=== PATIENT | male | born 1965 | race Caucasian/White ===

== ENCOUNTER 2018-10-05 18:04 | Emergency (ER) | payer MEDICAID, SELFPAY ==
[2018-10-05 18:04] VITALS: BP 157/82; PULSE 88; RESP 19; TEMP 37.2; O2SAT 97; BMI 30.4
--- NOTE | 2018-10-05 18:39 | RAD_ITS ---
STUDY: X-RAY - LEFT SHOULDER REASON FOR EXAM: Male, 52 years old. Pain. TECHNIQUE: 4 view(s) of the shoulder. COMPARISON: None. FINDINGS: Normal glenohumeral articulation. Normal acromioclavicular joint. Normal acromion. Normal humeral head and visualized proximal humerus. The soft tissue structures are unremarkable. There is no demonstrated fracture. Normal visualized pulmonary apex. RAD/Shoulder min 2 Views IMPRESSION: Normal x-ray examination of the shoulder. Electronically Signed: Pedro Valadez MD at 19:29 EST , Service support ,
--- NOTE | 2018-10-05 19:43 | ED.DCSUM_ITS ---
- ER Visit Summary Date of Service: 10/05/18 Chief Complaint: left shoulder pain History of Present Illness: The patient is a 52 M who presents for left shoulder pain. 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 He had no pain afterwards but woke up this morning with severe pain in his left shoulder. He has a history of shoulder injury in 1996, and has had limited range of motion and chronic pain in that shoulder since. He has not had pain this severe since the initial accident. He is taken Tylenol. No numbness or tingling in the arm. No loss of use. No other complaints. Physical Examination: Patient is well-nourished well-developed sitting in bed in no distress. Examination of the upper extremities shows symmetry of the right and left shoulders. No tenderness to palpation of the clavicle, AC joint, scapula, or coracoid process. Patient has full passive and active range of motion with some discomfort. All muscle groups and sensory dermatomes are intact distally. Radial pulse 2+. Remainder of exam unremarkable. Test Results: Clinical Impression(s) from Imaging Studies Shoulder X-Ray 10/05/18 18:39 IMPRESSION: Normal x-ray examination of the shoulder. Electronically Signed: Pedro Valadez MD at 19:29 EST , Service support , Emergency Department Course and Treatment: Patient was offered and declined pain medication. An x-ray showed no dislocation or fracture. Discussed with patient that he has aggravated his old injury, and will need to continue anti- inflammatories and might benefit from applying ice for the next couple days. He is to follow-up with his primary care doctor if he continues to have issues with the shoulder. he was offered referral to orthopedics and declined. Discharged home. Treatment Plan: [] Disposition: [] Impression: Left shoulder sprain This note was generated with [employer] dictation software. It may contain incorrect words, spelling, and punctuation that were not noted in review of the chart prior to signing ED Disposition - Plan for ED Patient: Disposition: Home or Assisted Living Chief Complaint: Upper Extremity Injury Instructions: ED Sprain Shoulder Referrals: Care Physician,No Primary [NON-STAFF] - Gulshan May [[facility]] - 1 Week if not improving Additional Instructions: Ice your shoulder 3-4 times a day for the next 2 days. Use [id number] naproxen or ibuprofen for pain. Follow-up with your doctor for reevaluation if you continue to have issues with your shoulder. If you have any worsening of your condition or any new concerning symptoms, please return immediately to the emergency department for another evaluation.
== END 2018-10-05 20:02 | disposition home or self-care (01) ==
LOC: ED 19:56
PROVIDERS: Emergency Provider Emergency Medicine; Family Provider Physician Assistant; PCP Physician Assistant
DX: S43.402A Unspecified sprain of left shoulder joint, initial encounter (principal); X58.XXXA Exposure to other specified factors, initial encounter; Y93.89 Activity, other specified; G89.29 Other chronic pain
CPT/HCPCS: 73030; 99282

== ENCOUNTER → 2020-08-05 16:55 | Outpatient (CLI) | payer MEDICAID, SELFPAY | PROVIDERS: PCP Physician Assistant | DX: U07.1 COVID-19 (principal) | CPT/HCPCS: 87635; C9803; U0003 ==

== ENCOUNTER 2021-06-15 08:49 | Emergency (ER) | payer MEDICAID, SELFPAY ==
[2021-06-15 08:50] VITALS: BP 165/100; PULSE 77; RESP 16; TEMP 36.6; O2SAT 98; BMI 39.5
--- NOTE | 2021-06-15 09:01 | EKG12_ITS ---
Test Reason : ABD PAIN Blood Pressure : / mmHG Vent. Rate : 071 BPM Atrial Rate : 071 BPM P-R Int : 128 ms QRS Dur : 094 ms QT Int : 392 ms P-R-T Axes : 000 -10 -18 degrees QTc Int : 425 ms Normal sinus rhythm Normal ECG Confirmed by DEMETRI AGARWAL, LUKE ([id number]), subeditor CHRISTINE KNAPP ([id number]) on 06/20/2021 8:16:01 AM Referred By: TAJ Confirmed By:KATERINA MOSQUERA MD
--- NOTE | 2021-06-15 09:01 | US_ITS ---
EXAM: US ABDOMEN LIMITED, RIGHT UPPER QUADRANT : 1965 CLINICAL INDICATION: PAINRUQ PAIN. KNOWN GALLSTONES TECHNIQUE: Real-time ultrasound of the right upper quadrant with image documentation. This report was created using [employer] report generation technology. COMPARISON: None. FINDINGS: LIVER: The liver measures 17 cm. There is normal echotexture. No intrahepatic biliary ductal dilation. GALLBLADDER: There are echogenic stones in the gallbladder No gallbladder wall thickening is demonstrated. No pericholecystic fluid. Negative sonographic Donaldson's sign. COMMON BILE DUCT: The common bile duct measures 2.3 mm. The proximal common bile duct is within normal limits for the patient's age. PANCREAS: Unremarkable as visualized. No focal abnormality is demonstrated in the pancreas. No pancreatic ductal dilatation. RIGHT KIDNEY: Right kidney measures 11.3 x 5.1 x 5.6 cm. The right renal cortex measures 1.4 cm. There is no hydronephrosis. No shadowing calculus. No focal lesion or perinephric collection is demonstrated. OTHER FINDINGS: The largest stone measures 2.2 x 1.5 cm. Global wall measures 2 mm. US/Gallbladder IMPRESSION: Cholelithiasis with no sonographic evidence of cholecystitis. at 1124 Reported and signed by: Brett Ott MD Electronically Signed: Brett Ott MD at 11:23 EDT Tel , Service support ,
--- NOTE | 2021-06-15 09:05 | EDS_ITS ---
HPI HPI - GI History of Present Illness Chief Complaint: Abd Pain Informant: patient Narrative Narrative: Patient sent from PCP office for evaluation of upper abdominal pain. Awakening with pain at 4 AM. He ate a cheeseburger at 8 PM last night. Reports history of gallstones back in 2014 with similar symptoms with a work-up in the ED. He did not follow-up with a surgeon. Denies nausea or vomiting. Denies any abdominal surgery history. He is on [id number] Prilosec. He took an extra dose this morning. He walked into his PCP office was seen briefly and was told to go emergency department Denies fever. Denies urinary symptoms. for imaging. Denies any past other past medical history. Denies ever having an ultrasound of his gallbladder. States findings from a CT. Prior similar symptoms: Yes PFSH PFSH Home Medications omeprazole 20 mg PO DAILY #30 capsule 04/10/17 [Rx Last Taken Unknown] Allergy/AdvReac Type Severity Reaction Status Date / Time Penicillins [PCN] Allergy Rash Verified 06/15/21 08:54 Sulfa (Sulfonamide Allergy Unknown Verified 06/15/21 08:54 Antibiotics) tetracycline [Tetracycline] Allergy Unknown Verified 06/15/21 08:54 erythromycin base AdvReac Upset Verified 06/15/21 08:54 [Erythromycin Base] Stomach Social History Smoking Status: Never smoker ROS ROS ED Constitutional Constitutional ED: Denies chills, fever(s) or sweats Eyes Eyes: Denies change in vision ENT ENT ED: Denies dysphagia or sore throat Cardiovascular Cardiovascular: Denies chest pain, leg edema, palpitations or racing heartbeat Respiratory/Chest Respiratory/Chest: Denies cough, dyspnea or dyspnea on exertion Gastrointestinal Gastrointestinal: Reports abdominal pain; Denies diarrhea, nausea or vomiting Genitourinary Genitourinary ED: Denies dysuria, hematuria or urinary frequency Musculoskeletal Musculoskeletal: Denies back pain, extremity pain or neck pain Integumentary Denies rash or wounds Neurologic Neurologic: Denies headache(s), paresthesias or weakness EXAM Physical Exam Const Vital Signs: 06/15/21 08:50 Temperature 97.8 F Temperature Source Temporal Pulse Rate 77 Respiratory Rate 16 Blood Pressure 165/100 H Blood Pressure Mean 121 Pulse Ox 98 Oxygen Delivery Method Room Air Positive well nourished and well developed General Appearance ED: well developed and NAD HEENT Reports moist mucous membranes normocephalic and atraumatic Eyes PERRL, EOMs intact bilaterally and conjunctivae normal General Eye ED: Yes normal appearance of both eyes Neck no lymphadenopathy and supple General: Negative for tenderness Chest Wall Chest: Negative for tenderness Resp normal respiratory effort and normal air movement Effort and Inspection: symmetric chest movement; Negative for respiratory distress Cardio regular rate, regular rhythm and no murmurs Peripheral Pulses: pulses 2+ throughout GI normal to inspection, nondistended, normoactive bowel sounds GI Narrative: There is tenderness epigastric mild right upper quadrant without any guarding or rebound. Negative Donaldson's or McBurney's tenderness. Palpation: Negative for guarding or rebound tenderness present Back/Spine no CVA tenderness and no thoracic nor lumbar tenderness Extremity normal to inspection General Extremety ED: Negative for edema or tenderness General Extremity: Negative for edema Neuro oriented x3 and no sensory deficits noted Sensorium / Orientation: awake and alert Skin no rashes or lesions noted and no wounds MDM MDM MDM Narrative Medical decision making narrative: Patient nonsurgical abdomen on exam. Epigastric mild right upper quadrant tenderness with reported known cholelithiasis history. Abdominal labs normal. Ultrasound notes cholelithiasis without cholecystitis. He was given Pepcid Zofran fluids with improvement of symptoms. Reported eating a cheeseburger last night. Discussed avoiding dairy products and fatty foods. History concerns for biliary colic symptoms. He is given follow-up with on-call surgery as an outpatient. Signs and symptoms discussed return. He will continue his Prilosec. All questions were answered. Lab Data Attestation: I reviewed the patient's lab results. Labs: Laboratory Results - last 24 hr 06/15/21 06/15/21 09:30 09:30 WBC 7.9 RBC 5.17 Hgb 13.8 Hct 45.0 MCV 87.0 MCH 26.7 L MCHC 30.7 L RDW Std Deviation 43.3 RDW Coeff of Viktoriya 13.7 Plt Count 227 MPV 10.3 Immature Gran % (Auto) 0.400 Neut % (Auto) 78.8 H Lymph % (Auto) 14.2 L Nuckolls % (Auto) 5.7 Eos % (Auto) 0.5 Baso % (Auto) 0.4 Absolute Neuts (auto) 6.2 Absolute Lymphs (auto) 1.12 Nucleated RBC % 0 Sodium 138 Potassium 4.0 Chloride 103 Carbon Dioxide 30.0 Anion Gap 5 BUN 17 Creatinine 0.81 Estim Creat Clear Calc 100.86 Est GFR (MDRD) Af Amer 128 Est GFR (MDRD) Non-Af 106 BUN/Creatinine Ratio 21.1 H Glucose 116 H Calcium 8.7 Total Bilirubin 0.70 Direct Bilirubin 0.16 AST 16 ALT 29 Alkaline Phosphatase 74 Total Protein 7.3 Albumin 3.7 Globulin 3.6 Lipase 128 Radiography Diagnostic Testing: Radiology Impression Gallbladder Ultrasound 06/15/21 09:01 IMPRESSION: Cholelithiasis with no sonographic evidence of cholecystitis. at 1124 Reported and signed by: Brett Ott MD Electronically Signed: Brett Ott MD at 11:23 EDT Tel , Service support , EKG Initial EKG: Attestation: I personally reviewed and interpreted this EKG as follows: Comments: Sinus rate of 71, no ST changes. T wave inversions in 3 and aVF however similar to March 2017. Discharge Plan Triage Chief Complaint: Abd Pain ED Provider: Syed Morfin Dx/Rx/DC Orders Clinical Impression: Biliary colic, Cholelithiasis Instructions: ED Gallstones with Biliary Colic Prescriptions: No Action omeprazole 20 MG capsule 20 mg PO DAILY Qty: 30 RF: 0 Primary Care Provider: Candida Moreno Referrals: Buck Lucia MD [STAFF PHYSICIAN] - 1 Week Candida Moreno PA [Primary Care Provider] - Disposition Disposition: Home, Self Care
[2021-06-15 09:40] LABS: Absolute Lymphocyte Count 1.12 X10^3/uL (0.83-4.51); Absolute Neutrophil Count 6.2 X10^3/uL (2.0-7.7); Basophil# 0.03 X10^3/uL; Basophil% 0.4 % (0-1); Eosinophil# 0.04 X10^3/uL; Eosinophils% 0.5 % (0-5); Hemoglobin 13.8 g/dL (13.0-16.5); Lymphocyte # 1.12 X10^3/ul (0.83-4.51); Lymphocyte % 14.2 % (19-41); Mean Corp Hgb Conc 30.7 g/dL (32-36); Mean Corpuscular Hgb 26.7 pg (27.0-32.0); Mean Platelet Vol. 10.3 fl (6.2-12.0); Monocyte# 0.45 X10^3/uL; Monocyte% 5.7 % (0-10); NRBC Flagged by Analyzer 0 % (0-5); Neutrophil # 6.21 X10^3/uL (2.7-7.7); Neutrophil % 78.8 % (47-70); Platelet Count 227 K/mm3 (150-450); RBC Distribution Width CV 13.7 % (11.6-14.6); RBC Distribution Width SD 43.3 fl (35.1-43.9); Red Blood Count 5.17 M/mm3 (4.6-6.2); White Blood Count 7.9 K/mm3 (4.4-11.0)
[2021-06-15] MEDS: Ondansetron 4 MG/2 ML Vial IV (09:50)
[2021-06-15] MEDS: Famotidine 200 MG/20 ML MDV 20 MG in 0.9% Normal Saline (Pres. free 8 ML 300 MG IV (09:51)
[2021-06-15] MEDS: 0.9% Normal Saline 1,000 ML 125 ML IV (09:52)
[2021-06-15 09:55] LABS: AST(SGOT) 16 U/L (15-37); Alanine Aminotransfer ALT/SGPT 29 U/L (16-61); Albumin, Serum 3.7 g/dL (3.2-5.0); Alkaline Phosphatase 74 U/L (45-117); Anion Gap 5 (5-15); BUN 17 mg/dL (7-18); BUN/Creat Ratio 21.1 RATIO (10-20); Bilirubin, Direct 0.16 mg/dL (0.00-0.30); Calcium,Total 8.7 mg/dL (8.5-10.1); Chloride 103 mmol/L (98-107); Creatinine, Serum 0.81 mg/dL (0.70-1.30); EST Glomerular Filtration Rate 106 mL/min (>60); Est Glom Filt Rate - Afr Amer 128 mL/min (>60); Estimated Creatinine Clearance 100.86 ml/min; Globulin 3.6 g/dL (2.2-4.2); Glucose 116 mg/dL (74-106); Lipase 128 U/L (73-393); Protein, Total 7.3 g/dL (6.4-8.2); Sodium Level 138 mmol/L (136-145)
[2021-06-15 11:51] VITALS: BP 129/72; PULSE 81; RESP 18; O2SAT 97
--- NOTE | 2021-06-15 11:51 | ED.RN ---
THIS NURSE REVIEWED D/C INSTRUCTIONS WITH PT. PT VERBALIZED UNDERSTANDING OF INSTRUCTIONS. IV D/C. IV CATHETER INTACT. PT TOLERATED WELL. PT DENIES FURTHER NEEDS OR QUESTIONS AT THIS TIME
== END 2021-06-15 11:53 | disposition home or self-care (01) ==
PROVIDERS: Emergency Provider Emergency Medicine; PCP Physician Assistant
DX: K80.70 Calculus of gallbladder and bile duct without cholecystitis without obstruction (principal); Z79.899 Other long term (current) drug therapy
CPT/HCPCS: 76705; 80048; 80076; 83690; 85025; 93005; 96374; 99283; J7030; A4216; J2405; J3490

== ENCOUNTER 2022-01-29 03:56 | Emergency (ER) | payer MEDICAID, SELFPAY ==
[2022-01-29] VITALS (8 sets, daily range): BP systolic 131–196; BP diastolic 83–111; PULSE 72–94; RESP 12–16; TEMP 36.4; O2SAT 94–99; BMI 36.5
--- NOTE | 2022-01-29 04:10 | EKG12_ITS ---
Test Reason : CP Blood Pressure : / mmHG Vent. Rate : 080 BPM Atrial Rate : 080 BPM P-R Int : 158 ms QRS Dur : 098 ms QT Int : 392 ms P-R-T Axes : 025 -13 -24 degrees QTc Int : 452 ms Normal sinus rhythm Poor R wave progression Confirmed by LAUREN AGARWAL, WILLIAM ([id number]), newspaper editor CHRISTINE KNAPP ([id number]) on 01/31/2022 8:59:56 AM Referred By: ZEINAB Confirmed By:WILLIAM AGUILAR MD
--- NOTE | 2022-01-29 04:10 | RAD_ITS ---
EXAM: XR CHEST, 1 VIEW CLINICAL INDICATION: chest pain TECHNIQUE: Frontal view of the chest. This report was created using [employer] report generation technology. COMPARISON: 08/04/2016. FINDINGS: LUNGS AND PLEURAL SPACES: Low lung volumes somewhat limit the exam. No consolidations. No pneumothorax. No effusion. HEART: Unremarkable. Cardiac silhouette not enlarged. MEDIASTINUM: Central airways and mediastinal contour are unremarkable. BONES/JOINTS: Unremarkable. SOFT TISSUES: Unremarkable. RAD/Chest 1 View (Portable) IMPRESSION: No acute findings in the chest. Electronically Signed: Buck Nguyen MD at 4:47 EDT ,
--- NOTE | 2022-01-29 04:11 | ED.VIS.CHEST ---
HPI History of Present Illness Chief Complaint: Chest Pain Informant: patient Onset/Context/Timing Onset: Hours (2) Activity at onset: sudden and sleep Timing: Continuous Quality: Positive for Aching Location: Left Chest (Without radiation or migration) Current Severity: Mild Maximum Severity: Moderate Worsened By: - (Each time he would lie down) Relieved By: - (Sitting up) Associated Symptoms: Negative for Nausea, Vomiting, Diaphoresis, Dyspnea, Cough, Lightheadedness, Acid Reflux (I have had acid reflux before and this feels different) and Palpitations Narrative Narrative: Patient woke up with chest discomfort that is worse when he lies down and better when he sits up. Nonpleuritic, nonexertional. Has been constant for the last couple hours since he woke up with it. No associated symptoms. Takes medication for blood pressure, has been compliant with it, usually takes it in the morning for breakfast which is in several hours from now. No known history of heart disease, has not had a stress test in the past. CVD Risk Factors: Positive for Hypertension, Hypercholesterolemia and Smoking (Former); Negative for Diabetes and Family History 1' </=55 (adopted, unk fam hx) PE Risk Factors: Negative for Recent Travel/Surgery, Recent Immobilization, Prior DVT or PE, Cancer and OCP + Smoking + >/=35 PFSH PFSH Medical History HTN (hypertension) Hyperlipemia Inguinal hernia Home Medications omeprazole 20 mg PO DAILY #30 capsule 04/10/17 [Rx Last Taken Unknown] losartan 25 mg PO DAILY 01/29/22 [History Last Taken Unknown] meloxicam 15 mg PO DAILY 01/29/22 [History Last Taken Unknown] rosuvastatin 5 mg PO QHS 01/29/22 [History Last Taken Unknown] Allergy/AdvReac Type Severity Reaction Status Date / Time Penicillins [PCN] Allergy Rash Verified 01/29/22 03:59 Sulfa (Sulfonamide Allergy Unknown Verified 01/29/22 03:59 Antibiotics) tetracycline [Tetracycline] Allergy Unknown Verified 01/29/22 03:59 erythromycin base AdvReac Upset Verified 01/29/22 03:59 [Erythromycin Base] Stomach Surgical History Hx of cholecystectomy Social History Smoking Status: Never smoker ROS ROS ED Constitutional Constitutional ED: Denies chills or fever(s) Eyes Eyes: Denies change in vision or diplopia ENT ENT ED: Denies rhinorrhea or sore throat Cardiovascular Cardiovascular: Reports chest pain; Denies palpitations Respiratory/Chest Respiratory/Chest: Denies cough or dyspnea Gastrointestinal Gastrointestinal: Denies abdominal pain, diarrhea, nausea or vomiting Genitourinary Genitourinary ED: Denies dysuria or hematuria Musculoskeletal Musculoskeletal: Denies back pain or neck pain Integumentary Denies abscess or rash Neurologic Neurologic: Denies headache(s), paresthesias or weakness Psychiatric Psychiatric: Denies anxiety or suicidal thoughts EXAM Physical Exam Const Vital Signs: 01/29/22 03:57 01/29/22 04:03 01/29/22 04:22 Temperature 97.5 F L Temperature Source Oral Pulse Rate 80 90 Respiratory Rate 14 Respiratory Effort Normal Non-Labored Blood Pressure 169/111 H 196/94 H Blood Pressure Mean 130 Pulse Ox 99 Oxygen Delivery Method Room Air 01/29/22 04:29 01/29/22 04:30 01/29/22 04:53 Temperature Temperature Source Pulse Rate 94 78 Respiratory Rate 16 Respiratory Effort Blood Pressure 146/96 H 156/91 H Blood Pressure Mean 112 Pulse Ox 94 Oxygen Delivery Method Room Air Room Air 01/29/22 05:02 01/29/22 05:57 01/29/22 06:15 Temperature Temperature Source Pulse Rate 87 72 80 Respiratory Rate 14 12 Respiratory Effort Blood Pressure 148/89 H 141/83 H 131/88 H Blood Pressure Mean 108 102 Pulse Ox 96 97 Oxygen Delivery Method Room Air Room Air Positive well nourished and well developed General Appearance ED: well developed and NAD HEENT Reports moist mucous membranes normocephalic and atraumatic Eyes PERRL and EOMs intact bilaterally Neck full ROM and supple Chest Wall inspection of chest normal Chest Narrative: Mildly tender left chest wall without crepitance or palpable mass. Normal inspection. Resp normal respiratory effort and clear to auscultation bilaterally Cardio regular rate, regular rhythm, no murmurs and no JVD Rate: Negative for tachycardic GI non-tender and non-distended Auscultation: normoactive bowel sounds Palpation: soft Back/Spine no CVA tenderness General Back: other FROM Extremity normal to inspection General Extremety ED: Negative for edema, pulses abnormal or tenderness General Extremity: Negative for edema or pulses abnormal Neuro oriented x3, CN's II-XII intact bilaterally and no sensory deficits noted Sensorium / Orientation: awake and alert Motor Exam: strength 5/5 throughout Skin no rashes or lesions noted and no wounds Heart Score History: Moderately Suspicious ECG: Normal Age: >45 - <65 years Risk Factors: >/= 3 Risk Factors or History of CAD Troponin: </= Normal Limit Score: 4 MDM MDM MDM Narrative Medical decision making narrative: Patient's pain completely resolved after aspirin and nitroglycerin x2. EKG and troponin, chest x-ray, basic labs normal. Heart score is 3-4, depending on how you score the history component. We discussed options including admitting him to the hospital for provocative testing/stress test, versus a second 2-hour troponin and discharge home if negative with close have patient follow-up. He opted for outpatient follow-up, and he was amenable to waiting for a 2-hour second measurement. He came back negative, a little lower than the initial 1. Patient is discharged home with appropriate instructions and return instructions. Lab Data Attestation: I reviewed the patient's lab results. Labs: Laboratory Results - last 24 hr 01/29/22 01/29/22 01/29/22 04:00 04:00 04:00 WBC 7.9 RBC 5.41 Hgb 14.3 Hct 46.7 MCV 86.3 MCH 26.4 L MCHC 30.6 L RDW Std Deviation 41.2 RDW Coeff of Viktoriya 13.2 Plt Count 245 MPV 10.4 Immature Gran % (Auto) 0.300 Neut % (Auto) 54.9 Lymph % (Auto) 33.8 [place] % (Auto) 9.2 Eos % (Auto) 1.5 Baso % (Auto) 0.3 Absolute Neuts (auto) 4.3 Absolute Lymphs (auto) 2.67 Nucleated RBC % 0 Sodium 138 Potassium 3.3 L Chloride 101 Carbon Dioxide 31.0 Anion Gap 6 BUN 18 Creatinine 0.88 Estim Creat Clear Calc 91.76 Est GFR (MDRD) Af Amer 116 Est GFR (MDRD) Non-Af 96 BUN/Creatinine Ratio 20.6 H Glucose 103 Calcium 8.9 Troponin I High Sens 6 01/29/22 06:00 WBC RBC Hgb Hct MCV MCH MCHC RDW Std Deviation RDW Coeff of Viktoriya Plt Count MPV Immature Gran % (Auto) Neut % (Auto) Lymph % (Auto) [place] % (Auto) Eos % (Auto) Baso % (Auto) Absolute Neuts (auto) Absolute Lymphs (auto) Nucleated RBC % Sodium Potassium Chloride Carbon Dioxide Anion Gap BUN Creatinine Estim Creat Clear Calc Est GFR (MDRD) Af Amer Est GFR (MDRD) Non-Af BUN/Creatinine Ratio Glucose Calcium Troponin I High Sens 5 Radiography Diagnostic Testing: Clinical Impression(s) from Imaging Studies Chest X-Ray 01/29/22 04:10 IMPRESSION: No acute findings in the chest. Electronically Signed: Buck Nguyen MD at 4:47 EDT , EKG Initial EKG: Attestation: I personally reviewed and interpreted this EKG as follows: Interpretation: Sinus Rhythm (80) and No Acute Injury Pattern Comments: Normal EKG Prior EKG tracings: available for review Prior: Unchanged Discharge Plan Triage Chief Complaint: Chest Pain ED Provider: Shashi Moya Dx/Rx/DC Orders Clinical Impression: Chest pain, unspecified, Accelerated hypertension Instructions: Symptoms of a Heart Attack, ED Chest Pain, Uncertain Cause Prescriptions: No Action omeprazole 20 MG capsule 20 mg PO DAILY Qty: 30 RF: 0 meloxicam 15 mg tablet 15 mg PO DAILY RF: 0 losartan 25 mg tablet 25 mg PO DAILY RF: 0 rosuvastatin 5 mg tablet 5 mg PO QHS RF: 0 Primary Care Provider: Candida Moreno Referrals: Candida Moreno, PA [Primary Care Provider] - As soon as possible Activity Restrictions/Additional Instructions: Take baby aspirin once daily (81 mg) until you see your primary care physician and/or are told otherwise.
[2022-01-29] MEDS: Aspirin 81 MG TAB.CHEW 324 MG PO (04:21)
[2022-01-29] MEDS: Nitroglycerin SL (ED/IMG/CATH) 0.4 MG TABLET SL ×2 (04:22→04:53)
[2022-01-29] MEDS: 0.9% Normal Saline 1,000 ML 250 ML IV (04:22)
[2022-01-29 04:25] LABS: Absolute Lymphocyte Count 2.67 X10^3/uL (0.83-4.51); Absolute Neutrophil Count 4.3 X10^3/uL (2.0-7.7); Basophil# 0.02 X10^3/uL; Basophil% 0.3 % (0-1); Eosinophil# 0.12 X10^3/uL; Eosinophils% 1.5 % (0-5); Hematocrit 46.7 % (40-54); Hemoglobin 14.3 g/dL (13.0-16.5); Lymphocyte # 2.67 X10^3/ul (0.83-4.51); Lymphocyte % 33.8 % (19-41); Mean Corp Hgb Conc 30.6 g/dL (32-36); Mean Corpuscular Hgb 26.4 pg (27.0-32.0); Mean Corpuscular Volume 86.3 fL (80-94); Mean Platelet Vol. 10.4 fl (6.2-12.0); Monocyte# 0.73 X10^3/uL; Monocyte% 9.2 % (0-10); NRBC Flagged by Analyzer 0 % (0-5); Neutrophil # 4.34 X10^3/uL (2.7-7.7); Neutrophil % 54.9 % (47-70); Platelet Count 245 K/mm3 (150-450); RBC Distribution Width CV 13.2 % (11.6-14.6); RBC Distribution Width SD 41.2 fl (35.1-43.9); Red Blood Count 5.41 M/mm3 (4.6-6.2); White Blood Count 7.9 K/mm3 (4.4-11.0)
[2022-01-29 04:50] LABS: Anion Gap 6 (5-15); BUN 18 mg/dL (7-18); BUN/Creat Ratio 20.6 RATIO (10-20); Calcium,Total 8.9 mg/dL (8.5-10.1); Chloride 101 mmol/L (98-107); Creatinine, Serum 0.88 mg/dL (0.70-1.30); EST Glomerular Filtration Rate 96 mL/min (>60); Est Glom Filt Rate - Afr Amer 116 mL/min (>60); Estimated Creatinine Clearance 91.76 ml/min; Glucose 103 mg/dL (74-106); Potassium 3.3 mmol/L (3.5-5.1); Sodium Level 138 mmol/L (136-145)
[2022-01-29 05:11] LABS: Troponin-I HS (w/2H Reflex) 6 pg/mL (3.0-78.0)
[2022-01-29] MEDS: Nitroglycerin Oint 1 INCH PACKET TD (05:57)
--- NOTE | 2022-01-29 06:31 | ED.RN ---
Per Dr. Moya, okay to discontinue nitro paste. Nitro paste taken off pt's left arm, residual paste taken off.
[2022-01-29 06:34] LABS: Reflex Troponin-HS? (from REC) Y
[2022-01-29 06:54] LABS: Troponin-I HS 5 pg/mL (3.0-78.0)
== END 2022-01-29 07:08 | disposition home or self-care (01) ==
LOC: ED 04:32
PROVIDERS: Emergency Provider Emergency Medicine; PCP Physician Assistant; Visit Provider Emergency Medicine
DX: R07.9 Chest pain, unspecified (principal); I10 Essential (primary) hypertension; E78.5 Hyperlipidemia, unspecified; Z79.899 Other long term (current) drug therapy
CPT/HCPCS: 71045; 80048; 84484; 85025; 93005; 99285; A4216

== ENCOUNTER → 2022-05-23 | Outpatient (CLI) | payer MEDICAID, SELFPAY ==
--- NOTE | 2022-05-23 14:41 | NEURO ---
NCS and/or EMG Patient Report Ordering Doctor: Candida Moreno DATE OF SERVICE: 05/23/22 Deon presents for electrodiagnostic testing. Complains of numbness in the 4th and 5th digits of the left hand. Electrodiagnostic Findings: Left median motor nerve demonstrated normal distal latency and amplitude. Following stimulation of this nerve, the patient reported that he was unable to tolerate the testing and refused to proceed any further. Electrodiagnostic impression: This is a limited and incomplete study. The left median motor nerve demonstrates normal distal latency and amplitude but no other information was obtained. No assessment regarding the patient's condition can be made.
== END | disposition home or self-care (01) ==
LOC: PSN 13:26
PROVIDERS: PCP Physician Assistant; Referring Provider Physician Assistant; Visit Provider Physician Assistant
DX: M48.02 Spinal stenosis, cervical region (principal); M50.30 Other cervical disc degeneration, unspecified cervical region; R20.0 Anesthesia of skin

== ENCOUNTER 2023-03-26 10:23 | Emergency (ER) | payer MEDICAID, SELFPAY ==
[2023-03-26 10:24] VITALS: BP 171/102; PULSE 119; RESP 17; TEMP 36.6; O2SAT 100
[2023-03-26 10:33] VITALS: BMI 37.6
--- NOTE | 2023-03-26 10:34 | ED.VIS.LOWEX ---
HPI History of Present Illness Chief Complaint: Lower Extremity Injury Narrative Narrative: 57-year-old male presents with pain in his left hip from an injury that he sustained yesterday. He states he was in the shower, went to wash his left lower extremity, and bend his hip. He had sharp pain in his left hip and states he felt a pop. He is unsure if it was out of place but felt it might have popped back into place. He now has pain that is worse with movement. He does have history of chronic back pain, but denies any loss of bowel or bladder, no saddle anesthesia, no recent fevers or chills. His pain has continued where he was unable to sleep on his left side or his left hip. He did not fall onto his left hip at all and states that secondary to pain he had a leaned up against the shower wall with his left shoulder. He was able to drive here to the emergency department. He complains of pain in his left hip that is worse with movement. [facility] Medical History HTN (hypertension) Hyperlipemia Inguinal hernia Home Medications omeprazole 20 mg capsule,delayed release 20 mg PO DAILY ##30 04/10/17 [Rx Last Taken Unknown] losartan 25 mg tablet 25 mg PO DAILY 01/29/22 [History Last Taken Unknown] meloxicam 15 mg tablet 15 mg PO DAILY 01/29/22 [History Last Taken Unknown] rosuvastatin 5 mg tablet 5 mg PO QHS 01/29/22 [History Last Taken Unknown] cyclobenzaprine 10 mg tablet 10 mg PO TID PRN Muscle Spasm #20 TABLETS 03/26/23 [Rx Last Taken Unknown] Allergy/AdvReac Type Severity Reaction Status Date / Time Penicillins [PCN] Allergy Rash Verified 03/26/23 10:26 Sulfa (Sulfonamide Allergy Unknown Verified 03/26/23 10:26 Antibiotics) tetracycline [Tetracycline] Allergy Unknown Verified 03/26/23 10:26 erythromycin base AdvReac Upset Verified 03/26/23 10:26 [Erythromycin Base] Stomach Surgical History Hx of cholecystectomy Social History Smoking Status: Never smoker ROS ROS ED ROS Narrative Constitutional: No fever, no chills. HEENT: No sore throat. No neck pain. No loss of vision. No rhinorrhea. Cardiovascular: No chest pain. No palpitations. No pedal edema. Respiratory: No cough, no shortness of breath. Abdominal: No abdominal pain. No nausea. No vomiting. Genitourinary: No dysuria. No hematuria. Musculoskeletal: No myalgias. Left hip pain worse with movement. Neurologic: No headaches. No dizziness. No lightheadedness. No loss of bowel or bladder. Skin: No rash. No change in color. Psychiatric: No depression. No anxiety. EXAM Physical Exam Narrative Exam Narrative: Afebrile. Vital signs noted. HEENT: Normocephalic. Atraumatic. PERRL, EOMI. Neck soft and supple. No point tenderness or step off. Cardiovascular: Regular rate and rhythm. No murmurs, rubs, or gallops appreciated. Respiratory: No tachypnea. Lungs clear to auscultation bilaterally. Gastrointestinal: Abdomen soft, nontender, with normoactive bowel sounds. No rebound or guarding. Neurological: Awake. Alert. Nonfocal, nonlateralizing. Skin: No rash. Normal color. No pallor. Musculoskeletal: No pedal edema. Full range of motion extremities. Pelvis stable. Mild tenderness to palpation over left greater trochanter area. Neurovascular intact distally with palpable dorsalis pedis pulse. Able to flex and extend hip and knee, left. Const Vital Signs: 03/26/23 10:24 Temperature 97.8 F Temperature Source Temporal Pulse Rate 119 H Respiratory Rate 17 Blood Pressure 171/102 H Blood Pressure Mean 125 Pulse Ox 100 Oxygen Delivery Method Room Air MDM MDM MDM Narrative Medical decision making narrative: Patient was given intramuscular injection of Toradol here for analgesia. I am hesitant to give him a muscle relaxer as he drove here. In the differential diagnosis is hip dislocation versus fracture versus ligamentous and muscular strain/sprain. Clinically, there is no evidence of dislocation, and I have low suspicion for fracture, however x-rays will be obtained of the left hip and pelvis and 3 views and interpreted by myself independently. On my independent interpretation, I see no evidence of acute fracture or dislocation of his left hip, no fracture of the pelvis. At this point in time, I feel he can be discharged safely home with a diagnosis of hip strain/hip sprain. I discussed with him prescription analgesics, but I do not feel narcotic pain medication is indicated. He states that he prefers to take Tylenol. I will write him for cyclobenzaprine which she has taken previously. He will follow-up with his primary care provider. I do not feel that he requires observation or admission. Return instructions to the emergency department were reviewed. Disposition is discharged home in stable condition. Radiography Diagnostic Testing: Clinical Impression(s) from Imaging Studies Hip/Pelvis X-Ray 03/26/23 10:50 IMPRESSION: Normal x-ray examination of the pelvis and hip. Electronically Signed: Stalin Winston MD at 11:14 EDT , Discharge Plan Triage Chief Complaint: Lower Extremity Injury ED Provider: Ash Carrizales Dx/Rx/DC Orders Clinical Impression: Sprain of left hip, Strain of left hip Instructions: ED Hip Strain Prescriptions: New cyclobenzaprine 10 mg tablet 10 mg PO TID PRN (Reason: Muscle Spasm) Qty: 20 0RF No Action omeprazole 20 MG capsule 20 mg PO DAILY Qty: 30 0RF meloxicam 15 mg tablet 15 mg PO DAILY losartan 25 mg tablet 25 mg PO DAILY rosuvastatin 5 mg tablet 5 mg PO QHS Primary Care Provider: Candida Moreno Referrals: Candida Moreno PA [Primary Care Provider] - 3-5 Days if not improving Disposition Disposition: Home, Self Care
--- NOTE | 2023-03-26 10:50 | RAD_ITS ---
STUDY: X-RAY - PELVIS AND LEFT HIP REASON FOR EXAM: Male, 57 years old. Left hip pain following a fall. TECHNIQUE: 3 views of the pelvis and hip. COMPARISON: None. FINDINGS: There is a non-specific bowel gas pattern. Normal visualized soft tissue structures. Normal bilateral iliac wings, sacroiliac joints and visualized sacrum. Normal bilateral superior and inferior pubic rami. Normal pubic symphysis. Normal bilateral ischial tuberosities. Normal visualized femoral head. Normal acetabulum. Normal hip joint. RAD/HIP, UNI W/ Pelvis 2-3 Views IMPRESSION: Normal x-ray examination of the pelvis and hip. Electronically Signed: Stalin Winston MD at 11:14 EDT ,
[2023-03-26] MEDS: Ketorolac 60 MG/2 ML Vial IM (11:04)
== END 2023-03-26 11:45 | disposition home or self-care (01) ==
PROVIDERS: Emergency Provider Emergency Medicine; PCP Physician Assistant; Visit Provider Emergency Medicine
DX: S73.102A Unspecified sprain of left hip, initial encounter (principal); S76.012A Strain of muscle, fascia and tendon of left hip, initial encounter; X58.XXXA Exposure to other specified factors, initial encounter; Y93.E1 Activity, personal bathing and showering; Y99.8 Other external cause status; I10 Essential (primary) hypertension; Z79.899 Other long term (current) drug therapy
CPT/HCPCS: 73502; 96372; 99282

== ENCOUNTER 2023-12-28 15:02 | Emergency (ER) | payer MEDICAID, SELFPAY ==
[2023-12-28 15:03] VITALS: BP 167/101; PULSE 116; RESP 18; TEMP 36.1; O2SAT 96; BMI 36.0
--- NOTE | 2023-12-28 15:16 | EX.ED.DYSGE1 ---
HPI <MARCUS Pettit - Last Filed: 12/28/23 15:52> History of Present Illness Chief Complaint: GI Bleed Narrative Narrative: 58-year-old male strained and had a hard bowel movement with rectal pain and noticed a small amount of dark red blood on the stool and then dark red blood on the toilet paper after wiping. This occurred twice this afternoon. He states his bowel movements are always hard and sometimes thin. He goes twice daily. He denies fever, chills, vomiting, or abdominal pain. Last colonoscopy was multiple years ago. He states he was due to have 1 last year but his father and it was delayed. PFSH <MARCUS Pettit - Last Filed: 12/28/23 15:52> PFSH Medical History HTN (hypertension) Hyperlipemia Inguinal hernia Home Medications omeprazole 20 mg capsule,delayed release 20 mg PO DAILY ##30 04/10/17 [Rx Last Taken Unknown] meloxicam 15 mg tablet 15 mg PO DAILY 01/29/22 [History Last Taken Unknown] rosuvastatin 5 mg tablet 5 mg PO QHS 01/29/22 [History Last Taken Unknown] cyclobenzaprine 10 mg tablet 10 mg PO TID PRN Muscle Spasm #20 TABLETS 03/26/23 [Rx Last Taken Unknown] fluticasone propionate 50 mcg/actuation nasal spray,suspension 2 spray intranasal DAILY 12/28/23 [History Last Taken Unknown] losartan 100 mg-hydrochlorothiazide 12.5 mg tablet 1 tab PO DAILY 12/28/23 [History Last Taken Unknown] Allergy/AdvReac Type Severity Reaction Status Date / Time Penicillins [PCN] Allergy Rash Verified 12/28/23 15:03 Sulfa (Sulfonamide Allergy Unknown Verified 12/28/23 15:03 Antibiotics) tetracycline [Tetracycline] Allergy Unknown Verified 12/28/23 15:03 erythromycin base AdvReac Upset Verified 12/28/23 15:03 [Erythromycin Base] Stomach Surgical History Hx of cholecystectomy Social History Smoking Status: Never smoker ROS <MARCUS Pettit - Last Filed: 12/28/23 15:52> ROS ED ROS Narrative Constitutional: Negative for fever, chills, malaise. GI: Positive for constipation. Negative for abdominal pain, nausea, vomiting, melena. EXAM <MARCUS Pettit - Last Filed: 12/28/23 15:52> Physical Exam Narrative Exam Narrative: CONST: Patient sitting in no acute distress. EYES: Normal inspection. NECK: Normal inspection. RESP: No respiratory distress, CTAB. CVS: Regular rate and rhythm, no murmur, no gallop. ABD: Soft and nontender, no guarding or rebound, nondistended. LOYD: Nonthrombosed external hemorrhoid bright red blood on skin but no active bleeding. Anoscope reveals rectal stricture and tenderness. SKIN: Color normal, no rash, warm, dry, intact. EXTREMITIES: Normal appearance, no pedal edema. NEURO: Oriented x4. PSYCH: Normal affect. Const Vital Signs: 12/28/23 15:03 Temperature 96.9 F L Temperature Source Temporal Pulse Rate 116 H Respiratory Rate 18 Blood Pressure 167/101 H Blood Pressure Mean 123 Pulse Ox 96 <Dr. Dominik Avila MD - Last Filed: 12/28/23 16:06> Physical Exam Const Vital Signs: 12/28/23 15:03 Temperature 96.9 F L Temperature Source Temporal Pulse Rate 116 H Respiratory Rate 18 Blood Pressure 167/101 H Blood Pressure Mean 123 Pulse Ox 96 [facility] <MARCUS Pettit - Last Filed: 12/28/23 15:52> [facility] Narrative Medical decision making narrative: Patient has 2 daily bowel movements but is chronically constipated and has to strain. After straining to have a BM today had rectal pain and dark red bleeding. Exam shows an external hemorrhoid. Anoscope there is narrowing of the rectum. There is no active bleeding and is not on anticoagulation. I recommended he follow-up for his colonoscopy. He states his care source mobile home park manager is due to visit him on Saturday and he can discuss arranging this. He has a GI doctor but does not recall the name. I recommended Metamucil and discussed return precautions and he was discharged in stable condition. <Dr. Dominik Avila MD - Last Filed: 12/28/23 16:06> [facility] Narrative Medical decision making narrative: Patient has 2 daily bowel movements but is chronically constipated and has to strain. After straining to have a BM today had rectal pain and dark red bleeding. Exam shows an external hemorrhoid. Anoscope there is narrowing of the rectum. There is no active bleeding and is not on anticoagulation. I recommended he follow-up for his colonoscopy. He states his care source mobile home park manager is due to visit him on Saturday and he can discuss arranging this. He has a GI doctor but does not recall the name. I recommended Metamucil and discussed return precautions and he was discharged in stable condition. I have personally performed a face to face assessment of the patient and have reviewed the DEVIN Note. I performed a substantive portion of the visit including all aspects of the following. My ocampo findings include: History is remarkable for pain with defecation. He noted blood this morning. Is concerned. He apparently had an abnormal Hemoccult test a year ago. Recommendation was colonoscopy. He did not undergo colonoscopy because father's . He does endorse thin pencillike stools. He has trouble moving his bowels. He states he does have to strain. Last year he reported significant mount of diarrhea. He no longer has problems with diarrhea. He denies weight loss. There is no history of Crohn's disease or ulcerative colitis. Exam is is remarkable for heavyset gentleman. He is slightly anxious. Rectal exam reveals blood near the anus. There is no fissures, fistulas or hemorrhoids that are visualized. Rectal exam was limited due to a stricture. He had significant mount of pain. Attempted anoscopy reveals abnormality of the anal mucosa. There is an external hemorrhoid noted at 5:00. Exam was limited because of discomfort and what I believed to be a stricture. Medical Decision Making patient was instructed to contact his primary care physician to make arrangements for colonoscopy in light of the narrowing of pain noted on digital exam and anoscopy. Other additions or changes: Anoscopy: Procedure note anoscopy was performed. Was limited due to the fact the patient has stricture. There is abnormality of the rectal mucosa. Patient does have a external hemorrhoid noted at 5:00. There is no active bleeding at this time. Procedures <Dr. Dominik Avila MD - Last Filed: 12/28/23 16:06> Other Procedures Procedure(s): Anoscopy. Note documented under the MDM portion by me. Discharge Plan Triage Chief Complaint: GI Bleed ED Midlevel Provider: Luciana Robertson ED Provider: Dominik Avila Dx/Rx/DC Orders Clinical Impression: Bleeding external hemorrhoids, Rectal abnormality, Constipation Instructions: ED Hemorrhoids Prescriptions: No Action omeprazole 20 MG capsule 20 mg PO DAILY Qty: 30 0RF meloxicam 15 mg tablet 15 mg PO DAILY rosuvastatin 5 mg tablet 5 mg PO QHS cyclobenzaprine 10 mg tablet 10 mg PO TID PRN (Reason: Muscle Spasm) Qty: 20 0RF fluticasone propionate 50 mcg/actuation spray,suspension 2 spray INTRANASAL DAILY losartan-hydrochlorothiazide 100-12.5 mg tablet 1 tab PO DAILY Primary Care Provider: Candida Moreno Referrals: Candida Moreno, PA [Primary Care Provider] - Activity Restrictions/Additional Instructions: Take Metamucil every day to soften your stools. It is very important you follow-up with your primary care doctor to schedule colonoscopy. There is narrowing inside your rectum. They need to look with the scope and take biopsies and rule out cancer. Disposition Disposition: Home, Self Care Discharge Date/Time: 12/28/23 15:34
--- OUTSIDE RECORDS SUMMARY | 2023-12-28 15:35 | XMS RPT_ITS | CCD ---
Author Name Unknown Address [address] [place] [address] Organization [facility] Care Team Providers Care Cw Operator Name Role Phone Candida Moreno PA-C Primary Care Provider [phone] JANAY SANFORD Referring Unavailable MORENO, Candida ASH Primary Care Unavailable JANAY SANFORD Referring Unavailable MORENO, Candida ASH Primary Care Unavailable JANAY SANFORD Referring Unavailable MORENO, M ASH Primary Care Unavailable JANAY SANFORD Referring Unavailable MORENO, M ASH Primary Care Unavailable JANAY SANFORD Referring Unavailable MORENO, M ASH Primary Care Unavailable JANAY SANFORD Referring Unavailable MORENO, M ASH Primary Care Unavailable JANAY SANFORD Attending Unavailable MORENO, M ASH Referring Unavailable MORENO, M ASH Primary Care Unavailable GUI MARTINEZ Attending Unavailab le JANAY SANFORD Referring Unavailable MORENO, M ASH Primary Care Unavailable CHASTITY SCOTT Attending Unavailable JANAY SANFORD Referring Unavailable MORENO, M ASH Primary Care Unavailable JANAY SANFORD Attending Unavailable MORENO, M ASH Primary Care Unavailable JANAY SANFORD Attending Unavailable MORENO, M ASH Primary Care Unavailable ROLANDAAGENJANAY Referring Unavailable MORENO, M ASH Primary Care Unavailable Moreno Candida WHITE Primary Care Provider [phone] Allergies Allergy Classification Reported Allergen(s) Allergy Type Date of Onset Reaction(s) Facility (20 sources) Erythromycin; Translations: [ERYTHROMYCIN] Drug Allergy 6 Diarrhea, GI Upset [facility] (20 sources) Lisinopril; Translations: [LISINOPRIL] Drug Allergy 1 Other: See Comments [facility] Work Phone: (10 sources) Penicillins; Translations: [PENICILLINS] Drug Allergy 6 Rash [facility] (20 sources) Sulfonamides (Antibiotic); Translations: [SULFA (SULFONAMIDE ANTIBIOTICS)] Propensity to adverse reactions to drug 6 Unknown [facility] (10 sources) Tetracycline (class of antibiotic); Translations: [TETRACYCLINES] Drug Allergy 6 Other: See Comments [facility] (20 sources) Penicillins Drug Allergy 6 Rash [facility] (20 sources) Tetracycline (class of antibiotic) Drug Allergy 6 Other: See Comments [facility] Medications Current Medications Medication Drug Class(es) Dates Sig (Normalized) Sig (Original) predniSONE 10 mg oral tablet (1 source) Start: 03-20-2023 End: 04-01-2023 predniSONE (DELTASONE) 10 mg tablet Take 4 tabs daily x 3 days, then 3 tabs x 3 days, 2 tabs x 3 days, then 1 tab x3 days with food. 30 tablet 0 03/20/2023 04/01/2023 Active Completed/Discontinued Medications Medication Drug Class(es) Dates Sig (Normalized) Sig (Original) [id number] 200 actuat albuterol 0.09 mg/actuat metered dose inhaler (20 sources) beta2-Adrenergic Agonist Start: 11-20-2021 take 2 puff(s) by inhalation every four hours as needed albuterol HFA (PROVENTIL HFA, VENTOLIN HFA) 90 mcg/actuation inhaler Indications: Mild intermittent asthma with acute exacerbation Inhale 2 Puffs as instructed every 4 hours as needed. 18 g 1 11/20/2021 Active Problems Active Problems Problem Classification Problem Date Documented Da te Episodic/Chronic Asthma (20 sources) Mild intermittent asthma; Translations: [Mild intermittent asthma, uncomplicated] Onset: 6 01-14-2017 Chronic Disorders of lipid metabolism (8 sources) Mixed hyperlipidemia; Translations: [Mixed hyperlipidemia] Onset: 3 Chronic Esophageal disorders (20 sources) Gastroesophageal reflux disease; Translations: [Gastro-esophageal reflux disease without esophagitis] Onset: 1 Chronic Essential hypertension (20 sources) Essential hypertension; Translations: [Essential (primary) hypertension] Onset: 1 Chronic Nonspecific chest pain (2 sources) Chest pain; Translations: [Other chest pain] Episodic Other connective tissue disease (2 sources) Hand pain; Translations: [Pain in unspecified hand] Episodic Other connective tissue disease (1 source) Pain in unspecified hand; Translations: [Pain of hand, unspecified laterality] Onset: 3 Episodic Other gastrointestinal disorders (2 sources) Occult blood in stools; Translations: [Other fecal abnormalities] 06-10-2023 Episodic Other gastrointestinal disorders (1 source) Other fecal abnormalities; Translations: [Fecal occult blood test positive] Onset: 3 Episodic Other injuries and conditions due to external causes (2 sources) Allergic condition; Translations: [Allergy, unspecified, sequela] Episodic Other nervous system disorders (1 source) Ulnar neuropathy of left arm; Translations: [Lesion of ulnar nerve, left upper limb] 06-20-2023 Chronic Other nervous system disorders (1 source) Carpal tunnel syndrome of left wrist; Translations: [Carpal tunnel syndrome, left upper limb] 06-20-2023 Chronic Other nervous system disorders (1 source) Other chronic pain; Translations: [Chronic low back pain, unspecified back pain laterality, unspecified whether sciatica present] Onset: 3 Chronic Other non-traumatic joint disorders (1 source) Shoulder pain; Translations: [Pain in left shoulder] Episodic Other non-traumatic joint disorders (1 source) Pain of left wrist; Translations: [Pain in left wrist] Episodic Other nutritional; endocrine; and metabolic disorders (19 sources) Obesity; Translations: [Other obesity due to excess calories] Onset: 1 08-11-2021 Chronic Other nutritional; endocrine; and metabolic disorders (10 sources) Obesity caused by energy imbalance; Translations: [Other obesity due to excess calories] Onset: 1 08-11-2021 Chronic Other skin disorders (1 source) Skin tag; Translations: [Other hypertrophic disorders of the skin] Episodic Spondylosis; intervertebral disc disorders; other back problems (20 sources) Degeneration of cervical intervertebral disc; Translations: [Other cervical disc degeneration, unspecified cervical region] Onset: 2 Chronic Unclassified (1 source) Chronic low back pain, unspecified back pain laterality, unspecified whether sciatica present; Translations: [Chronic low back pain, unspecified back pain laterality, unspecified whether sciatica present] Onset: Past or Other Problems Problem Classification Problem Date Documented Date Episodic/Chronic Abdominal hernia (20 sources) Inguinal hernia; Translations: [Unilateral inguinal hernia, without obstruction or gangrene, not specified as recurrent] Onset: 05-15-2011 05-15-2011 Episodic Biliary tract disease (20 sources) Cholelithiasis without obstruction; Translations: [Calculus of gallbladder without cholecystitis without obstruction] Onset: 08-11-2021 Episodic Other nervous system disorders (20 sources) Numbness of finger; Translations: [Anesthesia of skin] Onset: 01-15-2022 Episodic Other non-traumatic joint disorders (1 source) Pain in left wrist; Translations: [Left wrist pain] Onset: 03-20-2023 Episodic Other screening for suspected conditions (not mental disorders or infectious disease) (20 sources) Patient encounter status; Translations: [Encounter for screening for lipoid disorders] Onset: 10-04-2021 10-04-2021 Episodic Spondylosis; intervertebral disc disorders; other back problems (20 sources) Neck pain; Translations: [Cervicalgia] Onset: 04-22-2018 Episodic Results Test Name Value Interpretation Reference Range Facil ity Vital Signs Date Time Vital Sign Value Performing Clinician Faci lity 06-10-2023 12:02-0400 Diastolic blood pressure 80 mm[Hg] Chastity Scott MD Work Phone: [facility] 06-10-2023 12:02-0400 Systolic blood pressure 132 mm[Hg] Chastity Scott MD Work Phone: [facility] 06-10-2023 11:45-0400 Body height 172.7 cm Chastity Scott MD Work Phone: [facility] 06-10-2023 11:45-0400 Body temperature 98.2 [degF] Chastity Scott MD Work Phone: [facility] 06-10-2023 11:45-0400 Body weight 112.67 kg Chastity Scott MD Work Phone: [facility] 06-10-2023 11:45-0400 Heart rate 103 /min Chastity Scott MD Work Phone: [facility] 06-10-2023 11:45-0400 SaO2% (BldA) [Mass fraction] 94 % Chastity Scott MD Work Phone: [facility] 04-18-2023 15:44-0400 Diastolic blood pressure 84 mm[Hg] Janay Haagen SILVER PLATER.SOCIAL STUDIES TEACHER Work Phone: [facility] 04-18-2023 15:44-0400 Heart rate 115 /min Janay Haagen SILVER PLATER.SOCIAL STUDIES TEACHER Work Phone: [facility] 04-18-2023 15:44-0400 Respiratory rate 16 /min Janay Haagen SILVER PLATER.SOCIAL STUDIES TEACHER Work Phone: [facility] 04-18-2023 15:44-0400 SaO2% (BldA) [Mass fraction] 96 % Janay Haagen SILVER PLATER.SOCIAL STUDIES TEACHER Work Phone: [facility] 04-18-2023 15:44-0400 Systolic blood pressure 116 mm[Hg] Janay Haagen SILVER PLATER.SOCIAL STUDIES TEACHER Work Phone: [facility] 03-20-2023 08:56-0400 Diastolic blood pressure 90 mm[Hg] Janay Haagen SILVER PLATER.SOCIAL STUDIES TEACHER Work Phone: [facility] 03-20-2023 08:56-0400 Heart rate 67 /min Janay Haagen SILVER PLATER.SOCIAL STUDIES TEACHER Work Phone: [facility] 03-20-2023 08:56-0400 Respiratory rate 18 /min Janay Haagen SILVER PLATER.SOCIAL STUDIES TEACHER Work Phone: [facility] 03-20-2023 08:56-0400 SaO2% (BldA) [Mass fraction] 98 % Janay Haagen SILVER PLATER.SOCIAL STUDIES TEACHER Work Phone: [facility] 03-20-2023 08:56-0400 Systolic blood pressure 142 mm[Hg] Janay Haagen SILVER PLATER.SOCIAL STUDIES TEACHER Work Phone: [facility] 01-16-2023 13:35-0400 Diastolic blood pressure 96 mm[Hg] Janay Haagen SILVER PLATER.SOCIAL STUDIES TEACHER Work Phone: [facility] 01-16-2023 13:35-0400 Heart rate 71 /min Janay Haagen SILVER PLATER.SOCIAL STUDIES TEACHER Work Phone: [facility] 01-16-2023 13:35-0400 Systolic blood pressure 167 mm[Hg] Janay Haagen SILVER PLATER.SOCIAL STUDIES TEACHER Work Phone: [facility] 01-16-2023 12:51-0400 Body weight 111.58 kg Janay Haagen SILVER PLATER.SOCIAL STUDIES TEACHER Work Phone: [facility] 01-16-2023 12:51-0400 Respiratory rate 18 /min Janay Haagen SILVER PLATER.SOCIAL STUDIES TEACHER Work Phone: [facility] 01-16-2023 12:51-0400 SaO2% (BldA) [Mass fraction] 98 % Janay Haagen SILVER PLATER.SOCIAL STUDIES TEACHER Work Phone: [facility] 07-18-2022 10:56-0400 Body weight 106.14 kg Janay Haagen SILVER PLATER.SOCIAL STUDIES TEACHER Work Phone: [facility] 07-18-2022 10:56-0400 Diastolic blood pressure 90 mm[Hg] Janay Haagen SILVER PLATER.SOCIAL STUDIES TEACHER Work Phone: [facility] 07-18-2022 10:56-0400 Heart rate 80 /min Janay Haagen SILVER PLATER.SOCIAL STUDIES TEACHER Work Phone: [facility] 07-18-2022 10:56-0400 Respiratory rate 18 /min Janay Haagen SILVER PLATER.SOCIAL STUDIES TEACHER Work Phone: [facility] 07-18-2022 10:56-0400 SaO2% (BldA) [Mass fraction] 96 % Janay Haagen SILVER PLATER.SOCIAL STUDIES TEACHER Work Phone: [facility] 07-18-2022 10:56-0400 Systolic blood pressure 142 mm[Hg] Janay Haagen SILVER PLATER.SOCIAL STUDIES TEACHER Work Phone: [facility] 04-23-2022 13:14-0400 Body weight 108.41 kg EMILIE Moreno PA-C Work Phone: [facility] 04-23-2022 13:14-0400 Diastolic blood pressure 80 mm[Hg] NA Moreno PA-C Work Phone: [facility] 04-23-2022 13:14-0400 Heart rate 92 /min NA Moreno PA-C Work Phone: [facility] 04-23-2022 13:14-0400 Respiratory rate 20 /min NA Moreno PA-C Work Phone: [facility] 04-23-2022 13:14-0400 SaO2% (BldA) [Mass fraction] 99 % NA Moreno PA-C Work Phone: [facility] 04-23-2022 13:14-0400 Systolic blood pressure 134 mm[Hg] NA Moreno PA-C Work Phone: [facility] 03-26-2022 14:09-0400 Body temperature 98.8 [degF] NA Moreno PA-C Work Phone: [facility] 03-26-2022 14:09-0400 Body weight 109.41 kg NA Moreno PA-C Work Phone: [facility] 03-26-2022 14:09-0400 Diastolic blood pressure 82 mm[Hg] NA Moreno PA-C Work Phone: [facility] 03-26-2022 14:09-0400 Heart rate 82 /min NA Moreno PA-C Work Phone: [facility] 03-26-2022 14:09-0400 Respiratory rate 16 /min NA Moreno PA-C Work Phone: [facility] 03-26-2022 14:09-0400 SaO2% (BldA) [Mass fraction] 96 % NA Moreno PA-C Work Phone: [facility] 03-26-2022 14:09-0400 Systolic blood pressure 148 mm[Hg] NA Moreno PA-C Work Phone: [facility] 02-06-2022 12:51-0400 Diastolic blood pressure 92 mm[Hg] NA Moreno PA-C Work Phone: [facility] 02-06-2022 12:51-0400 Heart rate 73 /min NA Moreno PA-C Work Phone: [facility] 02-06-2022 12:51-0400 Systolic blood pressure 144 mm[Hg] NA Moreno PA-C Work Phone: [facility] 02-06-2022 11:36-0400 Body weight 108.86 kg NA Moreno PA-C Work Phone: [facility] 02-06-2022 11:36-0400 Respiratory rate 20 /min NA Moreno PA-C Work Phone: [facility] 02-06-2022 11:36-0400 SaO2% (BldA) [Mass fraction] 98 % NA Moreno PA-C Work Phone: [facility] 01-05-2022 11:30-0400 Body weight 109.77 kg NA Moreno PA-C Work Phone: [facility] 01-05-2022 11:30-0400 Diastolic blood pressure 84 mm[Hg] NA Moreno PA-C Work Phone: [facility] 01-05-2022 11:30-0400 Heart rate 86 /min NA Moreno PA-C Work Phone: [facility] 01-05-2022 11:30-0400 Respiratory rate 20 /min NA Moreno PA-C Work Phone: [facility] 01-05-2022 11:30-0400 SaO2% (BldA) [Mass fraction] 98 % NA Moreno PA-C Work Phone: [facility] 01-05-2022 11:30-0400 Systolic blood pressure 142 mm[Hg] NA Moreno PA-C Work Phone: [facility] Encounters Encounter Date Encounter Type Care Provider Facility Start: 12-16-2023 Meliza Francisco on PA-C Work Phone: [facility] [place] Procedures Date Procedure Procedure Detail Performing Clinician Start: 01-28-2023 Myocardial spect mul tiple studies Janay Sanford SILVER PLATER.SOCIAL STUDIES TEACHER Work Phone: Start: 01-16-2023 Lipid 1996 panel - S gautam or Plasma Janay Hajordan SILVER PLATER.SOCIAL STUDIES TEACHER Work Phone: Start: 07-18-2022 INFLUENZA VACCINE QUADRIVALENT 6 MO - 64 YRS IM Janay Juvenal SILVER PLATER.SOCIAL STUDIES TEACHER Work Phone: Start: 07-18-2022 PFIZER-BIONTbasestone COVI D-19 BIVALENT BOOSTER VACCINE, AGE 12+ YR Janay Sanford SILVER PLATER.SOCIAL STUDIES TEACHER Work Phone: Start: 08-10-2019 Adult depression scr eening assessment EMILIE Moreno PA-C Work Phone: Plan of Treatment Date Care Activity Detail Author Start: 11-19-2028 Urine microalbumin profile [facility] Start: 01-17-2028 Lipid 1996 panel - Serum or Plasma Lipid Screening [facility] Start: 01-17-2028 Lipid panel Lipid Screening [facility] Start: 01-17-2028 LIPID SCREEN LIPID SCREEN [facility] Start: 07-18-2027 LIPID SCREEN LIPID SCREEN [facility] Start: 02-07-2027 LIPID SCREEN LIPID SCREEN [facility] Start: 08-30-2026 LIPID SCREEN LIPID SCREEN [facility] Start: 01-16-2026 DIABETES SCREEN DIABETES SCREEN [facility] Start: 01-16-2026 Diabetes Screening Diabetes Screening [facility] Start: 07-18-2025 DIABETES SCREEN DIABETES SCREEN [facility] Start: 02-07-2025 DIABETES SCREEN DIABETES SCREEN [facility] Start: 08-30-2024 DIABETES SCREEN DIABETES SCREEN [facility] Start: 04-18-2024 ANNUAL PCP TEAM CHRONIC DISEASE VISIT ANNUAL PCP TEAM CHRONIC DISEASE VISIT [facility] Start: 03-20-2024 ANNUAL PCP TEAM CHRONIC DISEASE VISIT ANNUAL PCP TEAM CHRONIC DISEASE VISIT [facility] Start: 01-17-2024 ANNUAL PCP TEAM CHRONIC DISEASE VISIT ANNUAL PCP TEAM CHRONIC DISEASE VISIT [facility] Start: 10-14-2023 Depression Assessment Depression Assessment [facility] Start: 07-18-2023 ANNUAL PCP TEAM CHRONIC DISEASE VISIT ANNUAL PCP TEAM CHRONIC DISEASE VISIT [facility] Start: 06-14-2023 Covid-19 Vaccine ( season) Covid-19 Vaccine ( season) [facility] Start: 06-14-2023 Influenza vaccination [facility] Start: 04-23-2023 ANNUAL PCP TEAM CHRONIC DISEASE VISIT ANNUAL PCP TEAM CHRONIC DISEASE VISIT [facility] Start: 03-26-2023 ANNUAL PCP TEAM CHRONIC DISEASE VISIT ANNUAL PCP TEAM CHRONIC DISEASE VISIT [facility] Start: 02-06-2023 ANNUAL PCP TEAM CHRONIC DISEASE VISIT ANNUAL PCP TEAM CHRONIC DISEASE VISIT [facility] Start: 01-16-2023 End: 03-18-2023 Comprehensive metabolic 2000 panel - Serum or Plasma [facility] Work Phone: Immunizations Immunization Date Immunization Notes Care Provider Fa cility 07-18-2022 COVID-19 booster vaccine, age 12+ yr, bivalent (PFIZER-BIONTECH) NA Moreno PA-C Work Phone: [facility] 07-18-2022 influenza, injectabl e, quadrivalent, contains preservative NA Moreno PA-C Work Phone: [facility] 07-18-2022 influenza virus vacc ine, unspecified formulation Janay Sanford SILVER PLATER.SOCIAL STUDIES TEACHER Work Phone: [facility] 11-01-2021 COVID-19 vaccine, ag e 12+ yr (PFIZER-BIONTECH - [place] TOP) NA Moreno PA-C Work Phone: [facility] Work Phone: 06-28-2021 influenza, injectabl e, quadrivalent, contains preservative NA Moreno PA-C Work Phone: [facility] 07-22-2020 pneumococcal polysaccharide vaccine, 23 valent NA Moreno PA-C Work Phone: [facility] 07-15-2020 influenza, injectabl e, quadrivalent, contains preservative NA Moreno PA-C Work Phone: [facility] Work Phone: 08-10-2019 influenza, injectabl e, quadrivalent, contains preservative NA Moreno PA-C Work Phone: [facility] 07-08-2018 influenza, injectabl e, quadrivalent, contains preservative NA Moreno PA-C Work Phone: [facility] 09-09-2017 influenza, injectabl e, quadrivalent, contains preservative NA Moreno PA-C Work Phone: [facility] 08-30-2007 influenza virus vacc ine, unspecified formulation NA Moreno PA-C Work Phone: [facility] 08-19-2006 influenza virus vacc ine, unspecified formulation NA Moreno PA-C Work Phone: [facility] Work Phone: 07-11-2005 tetanus and diphther ia toxoids, not adsorbed, for adult use NA Moreno PA-C Work Phone: [facility] Payers Date Payer Category Payer Medicaid [id number] 2014 Medicaid [facility] MED[facility] MEDICA[facility] [id number] 2014-Present [phone] [address] [place] [address] Medicaid [id number] 2014 Medicaid [id number] Social History Date Type Detail Facility Start: 04-22-2018 End: 07-18-2022 Tobacco smoking status NHIS Ex-smoker [facility] End: 11-11-2000 History of tobacco use Current smoker [facility] Work Phone: End: 11-11-2000 History of tobacco use Cigarette Smoker [facility] Work Phone: Start: 01-05-2022 End: 06-20-2023 Alcohol intake Current non-drinker of alcohol (finding) [facility] Start: 05-07-2011 History SDOH Alcohol Comment quit 10 yrs ago [facility] Start: 1965 Sex Assigned At Not on file C [facility] Start: 01-27-2022 End: 03-26-2022 Exposure to SARS-CoV-2 (event) Not sure [facility] Start: 07-18-2022 End: 03-20-2023 Cigarettes smoked current (pack per day) - Reported 0.2 [facility] Start: 04-22-2018 End: 07-18-2022 Tobacco use and exposure Smokeless tobacco non-user [facility] Start: 03-20-2023 End: 06-10-2023 Tobacco use panel [facility] Adult Depression Screening Assessment 0 [facility] Medical Equipment Procedure Code Equipment Code Equipment Origin al Text Equipment Identifier Dates [id number] Implant - [id number] Start: 05-15-2011 Clinical Notes 01-21-2006 to 12-16-2023 Telephone Encounter - Dulce Toth - 12/16/2023 2:42 PM Gui Delong DO - 06/20/2023 12:56 PM EDTTelephone Encounter - Janay Sanford APRN.CNP - 06/14/2023 3:51 PM EDT Note Date & Type Note Facility 12-16-2023 Miscellaneous Notes Patient has been identified by name and date of : Yes, Provider Gildardo Moreno Date 12-16-23 Time 2:45 pm Patient phones for refill(s): Requested Prescriptions Pending Prescriptions Disp Refills fluticasone (FLONASE) 50 mcg/actuation nasal spray 18.2 mL 11 Sig: SPRAY 2 SPRAYS INTO EACH NOSTRIL EVERY DAY omeprazole (PRILOSEC) 20 mg capsule 90 capsule 1 Sig: Take 1 capsule by mouth once daily. losartan-hydroCHLOROthiazide (HYZAAR) 100-12.5 mg per tablet 90 tablet 1 Sig: Take 1 tablet by mouth once daily. rosuvastatin (CRESTOR) 5 mg tablet 90 tablet 1 Sig: Take 1 tablet by mouth daily at bedtime. amLODIPine (NORVASC) 5 mg tablet 90 tablet 1 Sig: Take 1 tablet by mouth once daily. Date of last office visit in primary care: 04/18/2023 Date of next office visit in primary care: Visit date not found Please advise. Thank you. Dulce Miramontes. documented in this encounter [facility] 06-20-2023 Note HNO ID: [id number] Author: Gui Martinez, DO Service: ? Author Type: Physician Type: Progress Notes Filed: 06/20/2023 1:21 PM Note Text: Reason for Visit/Chief Complaint Deon Gregorio is a 57 year old male who presents today for a new evaluation of following complaint: Patient presents with: Left Ring Finger - New Patient, Trigger Finger Left Little Finger - New Patient, Trigger Finger History of Present Illness: PAIN EVALUATION 06/20/2023 1257 Pain Level: 9 Pain Location: Other: See Comment L 4th and 5th finger Description: Numbness Duration Amount of Time: 4 Duration Units: Months Frequency: Intermittent Intervention/Comfort measure: Reposition;Relaxation;Other: See comment OTC brace HPI: Deon Gregorio is a 57 year old male presenting today with trigger finger, L 4th and 5th fingers. Pain history is noted as above. 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 Frequently drops things such as books due to numbness and weakness. This has been ongoing for 3 months. He has not had any imaging. Previous Treatments: Ice: Yes Heat: No Brace: Yes, OTC wrist brace NSAIDs: No Injections: No Surgeries: No Physical Therapy: No Review of Systems: Patient did not have, and does not currently have, any weight loss, malaise, fever, chills, headache, chest pain, chest pressure, palpitations, cough, shortness of breath, orthopnea, paroxsymal nocturnal dyspnea, nausea, vomiting, diarrhea, constipation, melena, hematochezia, urinary difficulties, prolonged bleeding, easily bruising, heat or cold intolerance, new onset joint pain or swelling, new onset extremity weakness or numbness, new onset auditory or visual disturbances, lightheadedness, dizziness, partial loss of consciousness or full loss of consciousness. Current Outpatient Medications on File Prior to Visit Medication Sig omeprazole (PRILOSEC) 20 mg capsule Take 1 capsule by mouth once daily. losartan-hydroCHLOROthiazide (HYZAAR) 100-12.5 mg per tablet Take 1 tablet by mouth once daily. rosuvastatin (CRESTOR) 5 mg tablet Take 1 tablet by mouth daily at bedtime. amLODIPine (NORVASC) 5 mg tablet Take 1 tablet by mouth once daily. etodolac (LODINE) 400 mg tablet Take 1 tablet by mouth twice daily. fluticasone (FLONASE) 50 mcg/actuation nasal spray SPRAY 2 SPRAYS INTO EACH NOSTRIL EVERY DAY peg 3350-Electrolytes (GOLYTELY) 236-22.74-6.74 -5.86 gram suspension Refer to printed prep instructions from your provider. gabapentin (NEURONTIN) 600 mg tablet Take 1 tablet by mouth once daily for 90 days. albuterol HFA (PROVENTIL HFA, VENTOLIN HFA) 90 mcg/actuation inhaler Inhale 2 Puffs as instructed every 4 hours as needed. No current facility-administered medications on file prior to visit. ALLERGIES Allergen Reactions Erythromycin Diarrhea, GI Upset Lisinopril Other: See Comments cough Penicillins Rash Sulfa (Sulfonamide * Unknown Tcn [Tetracyclines] Other: See Comments resp difficulty Physical Exam: Vitals: There were no vitals taken for this visit. Psych: Pleasant, good affect and mood General Appearance: Well appearing, alert, in no acute distress, well-hydrated, well nourished.. Skin: Skin color, texture, turgor normal, no suspicious rashes or lesions. Peripheral Pulses: Normal. Neurologic: Gait normal. Reflexes normal and symmetric. Sensation grossly intact.. Lymph Nodes: No cervical lymphadenopathy, No supraclavicular lymphadenopathy, No axillary lymphadenopathy., and No inguinal lymphadenopathy.. Respiratory: No recent pulmonary infection, hemoptysis, chronic cough, or shortness of breath at rest Rheumatologic: Joint deformities: left Right Hand Exam Right hand exam is normal. Tenderness The patient is experiencing no tenderness. Range of Motion The patient has normal right wrist ROM. Wrist Extension: normal Flexion: normal Pronation: normal Supination: normal Muscle Strength The patient has normal right wrist strength. Tests Phalen?s Sign: negative Tinel's sign (median nerve): negative Nikita's test: negative Other Erythema: absent Sensation: normal Pulse: present Comments: Right /rad/ax nerves intact Left Hand Exam Tenderness The patient is experiencing tenderness in the radial area and ulnar area. Range of Motion Wrist Extension: abnormal Flexion: abnormal Pronation: abnormal Supination: abnormal Muscle Strength The patient has normal left wrist strength. Wrist extension: 4/5 Wrist flexion: 4/5 Poiser: 4/5 Tests Phalen?s sign: positive Tinel's sign (median nerve): positive Nikita's test: negative Other Erythema: absent Sensation: decreased Pulse: present Comments: Pos cubital tunnel left elbow Imaging: Last XR Hand/Finger - Impression Only XR HAND GENERAL 3V PA/LAT/OBL (more content not included)... [facility] 06-20-2023 History of Presen t illness Narrative Images from the original note were not included. Reason for Visit/Chief Complaint Deon Gregorio is a 57 year old male who presents today for a new evaluation of following complaint: Patient presents with: Left Ring Finger - New Patient, Trigger Finger Left Little Finger - New Patient, Trigger Finger History of Present Illness: PAIN EVALUATION 06/20/2023 1257 Pain Level: 9 Pain Location: Other: See Comment L 4th and 5th finger Description: Numbness Duration Amount of Time: 4 Duration Units: Months Frequency: Intermittent Intervention/Comfort measure: Reposition;Relaxation;Other: See comment OTC brace HPI: Deon Gregorio is a 57 year old male presenting today with trigger finger, L 4th and 5th fingers. Pain history is noted as above. 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 Frequently drops things such as books due to numbness and weakness. This has been ongoing for 3 months. He has not had any imaging. Previous Treatments: Ice: Yes Heat: No Brace: Yes, OTC wrist brace NSAIDs: No Injections: No Surgeries: No Physical Therapy: No Review of Systems: Patient did not have, and does not currently have, any weight loss, malaise, fever, chills, headache, chest pain, chest pressure, palpitations, cough, shortness of breath, orthopnea, paroxsymal nocturnal dyspnea, nausea, vomiting, diarrhea, constipation, melena, hematochezia, urinary difficulties, prolonged bleeding, easily bruising, heat or cold intolerance, new onset joint pain or swelling, new onset extremity weakness or numbness, new onset auditory or visual disturbances, lightheadedness, dizziness, partial loss of consciousness or full loss of consciousness. Current Outpatient Medications on File Prior to Visit Medication Sig omeprazole (PRILOSEC) 20 mg capsule Take 1 capsule by mouth once daily. losartan-hydroCHLOROthiazide (HYZAAR) 100-12.5 mg per tablet Take 1 tablet by mouth once daily. rosuvastatin (CRESTOR) 5 mg tablet Take 1 tablet by mouth daily at bedtime. amLODIPine (NORVASC) 5 mg tablet Take 1 tablet by mouth once daily. etodolac (LODINE) 400 mg tablet Take 1 tablet by mouth twice daily. fluticasone (FLONASE) 50 mcg/actuation nasal spray SPRAY 2 SPRAYS INTO EACH NOSTRIL EVERY DAY peg 3350-Electrolytes (GOLYTELY) 236-22.74-6.74 -5.86 gram suspension Refer to printed prep instructions from your provider. gabapentin (NEURONTIN) 600 mg tablet Take 1 tablet by mouth once daily for 90 days. albuterol HFA (PROVENTIL HFA, VENTOLIN HFA) 90 mcg/actuation inhaler Inhale 2 Puffs as instructed every 4 hours as needed. No current facility-administered medications on file prior to visit. ALLERGIES Allergen Reactions Erythromycin Diarrhea, GI Upset Lisinopril Other: See Comments cough Penicillins Rash Sulfa (Sulfonamide * Unknown Tcn [Tetracyclines] Other: See Comments resp difficulty Physical Exam: Vitals: There were no vitals taken for this visit. Psych: Pleasant, good affect and mood General Appearance: Well appearing, alert, in no acute distress, well-hydrated, well nourished.. Skin: Skin color, texture, turgor normal, no suspicious rashes or lesions. Peripheral Pulses: Normal. Neurologic: Gait normal. Reflexes normal and symmetric. Sensation grossly intact.. Lymph Nodes: No cervical lymphadenopathy, No supraclavicular lymphadenopathy, No axillary lymphadenopathy., and No inguinal lymphadenopathy.. Respiratory: No recent pulmonary infection, hemoptysis, chronic cough, or shortness of breath at rest Rheumatologic: Joint deformities: left Right Hand Exam Right hand exam is normal. Tenderness The patient is experiencing no tenderness. Range of Motion The patient has normal right wrist ROM. Wrist Extension: normal Flexion: normal Pronation: normal Supination: normal Muscle Strength The patient has normal right wrist strength. Tests Phalen s Sign: negative Tinel's sign (median nerve): negative Nikita's test: negative Other Erythema: absent Sensation: normal Pulse: present Comments: Right /rad/ax nerves intact Left Hand Exam Tenderness The patient is experiencing tenderness in the radial area and ulnar area. Range of Motion Wrist Extension: abnormal Flexion: abnormal Pronation: abnormal Supination: abnormal Muscle Strength The patient has normal left wrist strength. Wrist extension: 4/5 Wrist flexion: 4/5 Poiser: 4/5 Tests Phalen s sign: positive Tinel's sign (median nerve): positive Nikita's test: negative Other Erythema: absent Sensation: decreased Pulse: present Comments: Pos cubital tunnel left elbow Imaging: Last XR Hand/Finger - Impression Only XR HAND GENERAL 3V PA/LAT/OBL RT Exam End: 06/25/2019 12:26 PM (Final result) Impression: IMPRESSION: No acute process. Engineer Specialist: MARIA ANTONIA Transcribe Date/Time: Jun 29 2019 10:59A Dictated by : CAMILLE RUSHING MD... Assessment and Plan: Impression: Encounter Diagnosis ICD-10-CM 1. Ulnar neuropathy of left upper extremity G56.22 NEUROMUSCULAR ULTRASOUND/NEUROLOGY 2. Pain of hand, unspecified laterality M79.643 3. Carpal tunnel syndrome of left wrist G56.02 Plan: Unable to tolerate emg, so ordered neuromuscular us to evaluate ulnar neuropathy Nttp at a1 pulleys today, no locking; complains more of weakness of left hand in 4/5 and life tester outboard motors c/w ulnar nerve an dmild cts Today, in detail, through a thorough evaluation, we discussed possible etiologies of pain and our plans for further diagnostic and therapeutic interventions. We discussed strategies for decreasing pain and improving strength, stability and motion. Patient's questions were answered in detailed. Patient verbalizes understanding and agrees with the treatment plan as discussed. Gui Martinez D.O. M.P.HRicha documented in this encounter [facility] 06-14-2023 Miscellaneous Notes Noted. Refills sent. Janay Sanford APRN.DANIEL TC to pt, he states he is not interested in doing a colonoscopy at all. He said he discussed with Dr. Scott and she said if he was not having any issues with his bowels and was not seeing any blood then it would be his decision to proceed with colonoscopy. Pt declined. Pt wanted PCP to know that only change in bowels started after taking lodine. He states it caused him to have diarrhea so he stopped taking it and has noticed that his bowels have calmed down . He also notes that he did use about 2 bottles of Pepto Bismol when the diarrhea started, but has not had to use any since he stopped the lodine. Pt also requesting refills. Derek Harmon LPN Can we please check with patient. I can see that he did go see gen surg for possible colonoscopy d/t his positive stool test. He did not want to travel to [address] for the procedure. Is he interested in seeing [facility] for further evaluation/testing? documented in this encounter [facility] 06-10-2023 Note HNO ID: [id number] Author: Chastity Scott MD Service: ? Author Type: Physician Type: Progress Notes Filed: 06/13/2023 11:45 AM Note Text: HISTORY AND PHYSICAL Deon Gregorio 1965 REFERRING PHYSICIAN: Janay Sanford APRN.C* CHIEF COMPLAINT: Consult (Fecal occult blood positive) HPI: The patient is a 57 year old male referred for endoscopy. He presents with FOBT positivity. Deon notes occasional loose stools. He does not know his family history, he is adopted. He denies blood in stools. He denies abdominal pain, but has occasional lower cramping abdominal pain.. The patient has had previous colonoscopy, last in [place] in 1987. He complains of left hand tingling/numbness for which he is wearing a brace. PAST MEDICAL HISTORY Diagnosis Date Cervicalgia DDD (degenerative disc disease), cervical Essential hypertension Gallbladder calculus GERD (gastroesophageal reflux disease) Kidney stones Mild asthma Other specified abdominal hernia without obstruction or gangrene PUD (peptic ulcer disease) diagnosed in [facility] [place] UGI, EGD Sciatica PAST SURGICAL HISTORY Procedure Laterality Date LAPS SURG CHOLECYSTECTOMY W/CHOLANGIOGRAPHY 08/14/2021 PAST SURGICAL HISTORY OF UNDESCENDED TESTICLE AT [facility] 1ST INGUN [facility] AGE 6 YRS/> REDUCIBLE 05/15/2011 Right Current Outpatient Medications Medication Sig amLODIPine (NORVASC) 5 mg tablet Take 1 tablet by mouth once daily. etodolac (LODINE) 400 mg tablet Take 1 tablet by mouth twice daily. fluticasone (FLONASE) 50 mcg/actuation nasal spray SPRAY 2 SPRAYS INTO EACH NOSTRIL EVERY DAY omeprazole (PRILOSEC) 20 mg capsule Take 1 capsule by mouth once daily. losartan-hydroCHLOROthiazide (HYZAAR) 100-12.5 mg per tablet Take 1 tablet by mouth once daily. rosuvastatin (CRESTOR) 5 mg tablet Take 1 tablet by mouth daily at bedtime. albuterol HFA (PROVENTIL HFA, VENTOLIN HFA) 90 mcg/actuation inhaler Inhale 2 Puffs as instructed every 4 hours as needed. peg 3350-Electrolytes (GOLYTELY) 236-22.74-6.74 -5.86 gram suspension Refer to printed prep instructions from your provider. gabapentin (NEURONTIN) 600 mg tablet Take 1 tablet by mouth once daily for 90 days. No current facility-administered medications for this visit. ALLERGIES: Erythromycin, Lisinopril, Penicillins, Sulfa (Sulfonamide Antibiotics), and Tcn [Tetracyclines] PERSONAL HISTORY: Social History Tobacco Use Smoking status: Former Packs/day: 0.20 Years: 1.50 Additional pack years: 0.00 Total pack years: 0.30 Types: Cigarettes Quit date: 11/11/2000 Years since quittin.5 Smokeless tobacco: Never Vaping Use Vaping Use: Never used Substance Use Topics Alcohol use: No Comment: quit 10 yrs ago Drug use: No FAMILY HISTORY Adopted: Yes The review of systems data was entered by the nurse and reviewed by tn Nursing Notes: Dawna Curiel RN 06/10/2023 11:45 AM Signed REVIEW OF SYSTEMS: General: The patient denies fatigue, denies weight loss, denies weight gain, denies feeling hot, and denies feelings of cold. Eyes: The patient denies glaucoma, denies eye injury/surgery, wears glasses or contacts. Ear/Nose/Throat: The patient NOTES allergies, denies hayfever, denies ear infections, and denies bloody noses. Cardiovascular: The patient denies chest pain, denies heart disease, NOTES high blood pressure,denies cardiac stent, denies prior heart attack, denies irregular heart beat, NOTES high cholesterol, denies poor circulation, denies heart failure, other cardiac issues, denies claudication, denies cold feet, denies peripheral arterial stent. Respiratory: The patient denies tuberculosis, denies pneumonia, denies frequent cough, denies pulmonary embolism, NOTES shortness of breath, and denies coughing up blood. Gastrointestinal: The patient denies difficulty swallowing, NOTES acid reflux, NOTES ulcers, denies vomiting, denies jaundice/hepatitis, NOTES gallbladder problems, denies black or tarry stools, denies hemorrhoids, denies bleeding from rectum, denies diverticulitis, denies constipation, NOTES diarrhea, denies loss of stool control, and NOTES hernias. Kidney/Bladder: The patient denies kidney stones, denies urine infections, and denies bloody urine. Skin: The patient denies a history of skin cancer, denies bleeding/changing moles, and denies a history of skin rash. Neurologic: The patient denies a history of epilepsy/convulsions, denies headaches, denies head/spinal injuries, and denies stroke/TIA. Psychiatric: The patient denies psychiatric medications, denies depression, and denies voices, denies substance abuse. Endocrine: The patient denies thyroid disorders, denies diabetes, and denies hormonal problems. Hematologic: The patient denies a history of bruising, denies bleeding, and denies anemia, denies blood clots. Infections: The patient denies a history of measles and mumps, (more content not included)... [facility] 06-10-2023 History of Presen t illness Narrative HISTORY AND PHYSICAL Deon Gregorio 1965 REFERRING PHYSICIAN: Janay aSnford APRN.C* CHIEF COMPLAINT: Consult (Fecal occult blood positive) HPI: The patient is a 57 year old male referred for endoscopy. He presents with FOBT positivity. Deon notes occasional loose stools. He does not know his family history, he is adopted. He denies blood in stools. He denies abdominal pain, but has occasional lower cramping abdominal pain.. The patient has had previous colonoscopy, last in [place] in 1987. He complains of left hand tingling/numbness for which he is wearing a brace. PAST MEDICAL HISTORY Diagnosis Date Cervicalgia DDD (degenerative disc disease), cervical Essential hypertension Gallbladder calculus GERD (gastroesophageal reflux disease) Kidney stones Mild asthma Other specified abdominal hernia without obstruction or gangrene PUD (peptic ulcer disease) diagnosed in [facility] [place] UGI, EGD Sciatica PAST SURGICAL HISTORY Procedure Laterality Date LAPS SURG CHOLECYSTECTOMY W/CHOLANGIOGRAPHY 08/14/2021 PAST SURGICAL HISTORY OF UNDESCENDED TESTICLE AT [facility] 1ST INGUN [facility] AGE 6 YRS/> REDUCIBLE 05/15/2011 Right Current Outpatient Medications Medication Sig amLODIPine (NORVASC) 5 mg tablet Take 1 tablet by mouth once daily. etodolac (LODINE) 400 mg tablet Take 1 tablet by mouth twice daily. fluticasone (FLONASE) 50 mcg/actuation nasal spray SPRAY 2 SPRAYS INTO EACH NOSTRIL EVERY DAY omeprazole (PRILOSEC) 20 mg capsule Take 1 capsule by mouth once daily. losartan-hydroCHLOROthiazide (HYZAAR) 100-12.5 mg per tablet Take 1 tablet by mouth once daily. rosuvastatin (CRESTOR) 5 mg tablet Take 1 tablet by mouth daily at bedtime. albuterol HFA (PROVENTIL HFA, VENTOLIN HFA) 90 mcg/actuation inhaler Inhale 2 Puffs as instructed every 4 hours as needed. peg 3350-Electrolytes (GOLYTELY) 236-22.74-6.74 -5.86 gram suspension Refer to printed prep instructions from your provider. gabapentin (NEURONTIN) 600 mg tablet Take 1 tablet by mouth once daily for 90 days. No current facility-administered medications for this visit. ALLERGIES: Erythromycin, Lisinopril, Penicillins, Sulfa (Sulfonamide Antibiotics), and Tcn [Tetracyclines] PERSONAL HISTORY: Social History Tobacco Use Smoking status: Former Packs/day: 0.20 Years: 1.50 Additional pack years: 0.00 Total pack years: 0.30 Types: Cigarettes Quit date: 11/11/2000 Years since quittin.5 Smokeless tobacco: Never Vaping Use Vaping Use: Never used Substance Use Topics Alcohol use: No Comment: quit 10 yrs ago Drug use: No FAMILY HISTORY Adopted: Yes The review of systems data was entered by the nurse and reviewed by me Nursing Notes: Dawna Curiel RN 06/10/2023 11:45 AM Signed REVIEW OF SYSTEMS: General: The patient denies fatigue, denies weight loss, denies weight gain, denies feeling hot, and denies feelings of cold. Eyes: The patient denies glaucoma, denies eye injury/surgery, wears glasses or contacts. Ear/Nose/Throat: The patient NOTES allergies, denies hayfever, denies ear infections, and denies bloody noses. Cardiovascular: The patient denies chest pain, denies heart disease, NOTES high blood pressure,denies cardiac stent, denies prior heart attack, denies irregular heart beat, NOTES high cholesterol, denies poor circulation, denies heart failure, other cardiac issues, denies claudication, denies cold feet, denies peripheral arterial stent. Respiratory: The patient denies tuberculosis, denies pneumonia, denies frequent cough, denies pulmonary embolism, NOTES shortness of breath, and denies coughing up blood. Gastrointestinal: The patient denies difficulty swallowing, NOTES acid reflux, NOTES ulcers, denies vomiting, denies jaundice/hepatitis, NOTES gallbladder problems, denies black or tarry stools, denies hemorrhoids, denies bleeding from rectum, denies diverticulitis, denies constipation, NOTES diarrhea, denies loss of stool control, and NOTES hernias. Kidney/Bladder: The patient denies kidney stones, denies urine infections, and denies bloody urine. Skin: The patient denies a history of skin cancer, denies bleeding/changing moles, and denies a history of skin rash. Neurologic: The patient denies a history of epilepsy/convulsions, denies headaches, denies head/spinal injuries, and denies stroke/TIA. Psychiatric: The patient denies psychiatric medications, denies depression, and denies voices, denies substance abuse. Endocrine: The patient denies thyroid disorders, denies diabetes, and denies hormonal problems. Hematologic: The patient denies a history of bruising, denies bleeding, and denies anemia, denies blood clots. Infections: The patient denies a history of measles and mumps, denies rheumatic fever, and denies sexually transmitted diseases. Musculoskeletal: The patient NOTES back pain/injury, NOTES back problems, NOTES sciatica, denies knee/foot trouble, denies arthritis, or denies gout. When was patient's last Mammogram screening? N/A Last Colonoscopy: late in [place] Dawna Curiel RN PHYSICAL EXAMINATION: General: The patient is 57 year old male, well nourished, well hydrated in no acute distress. The patient is oriented to time, place, and person. VITALS: Blood pressure 132/80, pulse 103, temperature 36.8 C (98.2 F), height 172.7 cm (5' 8 ), weight 112.7 kg (248 lb 6.4 oz), SpO2 94 %. Body mass index is 37.77 kg/m . Head: Normal cephalic, atraumatic Eyes: pupils are equally round, sclera are clear/anicteric, wearing glasses Neck is supple with no tracheal deviation Respiratory: Normal respiratory excursion and pattern. Abdominal exam: benign Extremities: no clubbing, cyanosis or edema. Neuro: non focal Psych: normal mood Assessment IMPRESSION: FOBT positive PLAN: I have discussed the above with the patient. I have offered colonoscopy/EGD, possible biopsies I have explained the procedure to the patient. To be done at [facility] I have counseled the patient as to the risks of the procedure, including but not limited to: infection, bleeding, injury to any intrabdominal organs such as liver/spleen, perforation of the GI tract, inability to complete the procedure, complications of anesthesia, etc. - the patient understands. Patient refuses to go to [facility] for endoscopy. He states that he will talk to his PCP about it. I have answered all questions to the patient s satisfaction and the patient has no further questions. Diagnoses: (R19.5) Fecal occult blood test positive I have confirmed and edited as necessary, the PFSH and ROS obtained by others. I have encouraged patient to return to clinic if he changes his mind and wishes to schedule for procedure. Consultation requested by Janay Sanford for an opinion regarding patient's FOBT positivity. My final recommendations will be communicated back to the requesting physician by way of shared Medical record or letter to requesting physician via US mail. Return to Clinic: The patient is instructed to return to clinic if he wishes to schedule for upper and lower endoscopy for FOBT positivity. Medical Decision Making: Risk: Low: Low risk from testing/treatment Medical Decision Making Level: 2 - Straightforward Chastity Scott MD documented in this encounter [facility] 06-10-2023 Nurse Note REVIEW OF SYSTEMS: General: The patient denies fatigue, denies weight loss, denies weight gain, denies feeling hot, and denies feelings of cold. Eyes: The patient denies glaucoma, denies eye injury/surgery, wears glasses or contacts. Ear/Nose/Throat: The patient NOTES allergies, denies hayfever, denies ear infections, and denies bloody noses. Cardiovascular: The patient denies chest pain, denies heart disease, NOTES high blood pressure,denies cardiac stent, denies prior heart attack, denies irregular heart beat, NOTES high cholesterol, denies poor circulation, denies heart failure, other cardiac issues, denies claudication, denies cold feet, denies peripheral arterial stent. Respiratory: The patient denies tuberculosis, denies pneumonia, denies frequent cough, denies pulmonary embolism, NOTES shortness of breath, and denies coughing up blood. Gastrointestinal: The patient denies difficulty swallowing, NOTES acid reflux, NOTES ulcers, denies vomiting, denies jaundice/hepatitis, NOTES gallbladder problems, denies black or tarry stools, denies hemorrhoids, denies bleeding from rectum, denies diverticulitis, denies constipation, NOTES diarrhea, denies loss of stool control, and NOTES hernias. Kidney/Bladder: The patient denies kidney stones, denies urine infections, and denies bloody urine. Skin: The patient denies a history of skin cancer, denies bleeding/changing moles, and denies a history of skin rash. Neurologic: The patient denies a history of epilepsy/convulsions, denies headaches, denies head/spinal injuries, and denies stroke/TIA. Psychiatric: The patient denies psychiatric medications, denies depression, and denies voices, denies substance abuse. Endocrine: The patient denies thyroid disorders, denies diabetes, and denies hormonal problems. Hematologic: The patient denies a history of bruising, denies bleeding, and denies anemia, denies blood clots. Infections: The patient denies a history of measles and mumps, denies rheumatic fever, and denies sexually transmitted diseases. Musculoskeletal: The patient NOTES back pain/injury, NOTES back problems, NOTES sciatica, denies knee/foot trouble, denies arthritis, or denies gout. When was patient's last Mammogram screening? N/A Last Colonoscopy: late in [place] Dawna Curiel RN documented in this encounter [facility] 06-07-2023 Miscellaneous Notes Pt notified. He verbalized understanding. Schedulers please assist pt with scheduling appt with Gen Surg. Derek Harmon LPN Can please let patient know that I received his fecal test, which was abnormal. So, I put a referral in to general surgery, as he will need a colonoscopy. Please help schedule. Janay Sanford APRN.DANIEL See FIT testing sent to office from insurance. Result Abnormal documented in this encounter [facility] 04-18-2023 Note HNO ID: [id number] Author: Janay Sanford APRN.DANIEL Service: ? Author Type: Nurse Practitioner Type: Progress Notes Filed: 04/18/2023 4:55 PM Note Text: This is a 57 year old male who presents today with: Patient presents with: Recheck: Follow up- hand stiffness/numbness HISTORY OF PRESENT ILLNESS: Deon Gregorio is a 57 year old male. Patient presents with: Recheck: Follow up- hand stiffness/numbness Pt presents today with hand stiffness. Refers that his fingers have been locking up on him. Can be any finger, but seems moreso in the left 4th and 5th digit. Bilateral hands. 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 Refers that his grasp is weaker. Drops things. Awakes with pain. Left worse than right. Right handed. Some n/t in fingers. Unable to tolerate EMG in the past. Wearing cock-up splint on the left. Found prednisone helpful. Doesn't think the celebrex helped too much. Refers after his last visit, during his shower, felt like he popped his hip out. Refers that it popped back in. He had gone to the ER. Refers they took the xray. Had a shot a toradol and sent home with some muscle relaxers. PAST MEDICAL HISTORY: PAST MEDICAL HISTORY Diagnosis Date Kidney stones PUD (peptic ulcer disease) [place] [facility] [place], EGD PAST SURGICAL HISTORY Procedure Laterality Date LAPS SURG CHOLECYSTECTOMY W/CHOLANGIOGRAPHY 08/14/2021 PAST SURGICAL HISTORY OF UNDESCENDED TESTICLE AT [facility] 1ST INGUN H[facility] AGE 6 YRS/> REDUCIBLE 05/15/2011 Right ALLERGIES Erythromycin, Lisinopril, Penicillins, Sulfa (Sulfonamide Antibiotics), and Tcn [Tetracyclines] MEDICATIONS Current Outpatient Medications Medication Sig fluticasone (FLONASE) 50 mcg/actuation nasal spray SPRAY 2 SPRAYS INTO EACH NOSTRIL EVERY DAY omeprazole (PRILOSEC) 20 mg capsule Take 1 capsule by mouth once daily. losartan-hydroCHLOROthiazide (HYZAAR) 100-12.5 mg per tablet Take 1 tablet by mouth once daily. rosuvastatin (CRESTOR) 5 mg tablet Take 1 tablet by mouth daily at bedtime. celecoxib (CELEBREX) 200 mg capsule Take 1 capsule by mouth once daily. With food. peg 3350-Electrolytes (GOLYTELY) 236-22.74-6.74 -5.86 gram suspension Refer to printed prep instructions from your provider. gabapentin (NEURONTIN) 600 mg tablet Take 1 tablet by mouth once daily for 90 days. albuterol HFA (PROVENTIL HFA, VENTOLIN HFA) 90 mcg/actuation inhaler Inhale 2 Puffs as instructed every 4 hours as needed. amLODIPine (NORVASC) 5 mg tablet Take 1 tablet by mouth once daily. No current facility-administered medications for this visit. FAMILY HISTORY Adopted: Yes Social History Tobacco Use Smoking status: Former Packs/day: 0.20 Years: 1.50 Pack years: 0.30 Types: Cigarettes Quit date: 11/11/2000 Years since quittin.4 Smokeless tobacco: Never Vaping Use Vaping Use: Never used Substance Use Topics Alcohol use: No Comment: quit 10 yrs ago Drug use: No EXAM: BP 116/84 Pulse 115 Resp 16 SpO2 96% PHYSICAL EXAM: General Appearance: Well appearing, alert, in no acute distress, well-hydrated, well nourished.. Skin: Skin color, texture, turgor normal, no suspicious rashes or lesions. Head: Normocephalic, no masses, lesions, tenderness or abnormalities. Eyes: Anicteric sclera. Extraocular movements are intact. . Lungs: Lungs clear to auscultation. No wheezing, rhonchi, rales.. Extremities: No deformities, edema, skin discoloration, clubbing or cyanosis. Good capillary refill. Left 5th finger did get stuck in flexed position during office visit. Neurologic: Gait normal. Reflexes normal and symmetric. Sensation grossly intact. +2 radial pulses. = grasps. ASSESSMENT/PLAN: 1. Pain of hand, unspecified laterality - ICD9: 729.5, ICD10: M79.643 ? Carpal tunnel vs trigger finger, vs duputren's contracture. Was unable to tolerate emg. Referral to ortho. Start etoldolac. - CONSULT TO ORTHOPAEDICS - ETODOLAC 400 MG TABLET Discussed treatment plan and patient voices understanding. Patient's questions answered appropriately. Medications and potential side effects were discussed and patient voices understanding. Return to the office as scheduled or as needed for worsening/no improvement. Janay Sanford APRN.CNP [facility] 04-18-2023 Instructions Janay Sanford APRN.CNP - 04/18/2023 4:22 PM EDT Schedule with ortho. Start the etodolac twice daily and see if this helps with the hands. documented in this encounter [facility] 04-18-2023 History of Presen t illness Narrative This is a 57 year old male who presents today with: Patient presents with: Recheck: Follow up- hand stiffness/numbness HISTORY OF PRESENT ILLNESS: Deon Gregorio is a 57 year old male. Patient presents with: Recheck: Follow up- hand stiffness/numbness Pt presents today with hand stiffness. Refers that his fingers have been locking up on him. Can be any finger, but seems moreso in the left 4th and 5th digit. Bilateral hands. 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 Refers that his grasp is weaker. Drops things. Awakes with pain. Left worse than right. Right handed. Some n/t in fingers. Unable to tolerate EMG in the past. Wearing cock-up splint on the left. Found prednisone helpful. Doesn't think the celebrex helped too much. Refers after his last visit, during his shower, felt like he popped his hip out. Refers that it popped back in. He had gone to the ER. Refers they took the xray. Had a shot a toradol and sent home with some muscle relaxers. PAST MEDICAL HISTORY: PAST MEDICAL HISTORY Diagnosis Date Kidney stones PUD (peptic ulcer disease) diagnosed [place] [facility] [place]GI, EGD PAST SURGICAL HISTORY Procedure Laterality Date LAPS SURG CHOLECYSTECTOMY W/CHOLANGIOGRAPHY 08/14/2021 PAST SURGICAL HISTORY OF UNDESCENDED TESTICLE AT [facility] 1ST INGUN [facility] AGE 6 YRS/> REDUCIBLE 05/15/2011 Right ALLERGIES Erythromycin, Lisinopril, Penicillins, Sulfa (Sulfonamide Antibiotics), and Tcn [Tetracyclines] MEDICATIONS Current Outpatient Medications Medication Sig fluticasone (FLONASE) 50 mcg/actuation nasal spray SPRAY 2 SPRAYS INTO EACH NOSTRIL EVERY DAY omeprazole (PRILOSEC) 20 mg capsule Take 1 capsule by mouth once daily. losartan-hydroCHLOROthiazide (HYZAAR) 100-12.5 mg per tablet Take 1 tablet by mouth once daily. rosuvastatin (CRESTOR) 5 mg tablet Take 1 tablet by mouth daily at bedtime. celecoxib (CELEBREX) 200 mg capsule Take 1 capsule by mouth once daily. With food. peg 3350-Electrolytes (GOLYTELY) 236-22.74-6.74 -5.86 gram suspension Refer to printed prep instructions from your provider. gabapentin (NEURONTIN) 600 mg tablet Take 1 tablet by mouth once daily for 90 days. albuterol HFA (PROVENTIL HFA, VENTOLIN HFA) 90 mcg/actuation inhaler Inhale 2 Puffs as instructed every 4 hours as needed. amLODIPine (NORVASC) 5 mg tablet Take 1 tablet by mouth once daily. No current facility-administered medications for this visit. FAMILY HISTORY Adopted: Yes Social History Tobacco Use Smoking status: Former Packs/day: 0.20 Years: 1.50 Pack years: 0.30 Types: Cigarettes Quit date: 11/11/2000 Years since quittin.4 Smokeless tobacco: Never Vaping Use Vaping Use: Never used Substance Use Topics Alcohol use: No Comment: quit 10 yrs ago Drug use: No EXAM: BP 116/84 Pulse 115 Resp 16 SpO2 96% PHYSICAL EXAM: General Appearance: Well appearing, alert, in no acute distress, well-hydrated, well nourished.. Skin: Skin color, texture, turgor normal, no suspicious rashes or lesions. Head: Normocephalic, no masses, lesions, tenderness or abnormalities. Eyes: Anicteric sclera. Extraocular movements are intact. . Lungs: Lungs clear to auscultation. No wheezing, rhonchi, rales.. Extremities: No deformities, edema, skin discoloration, clubbing or cyanosis. Good capillary refill. Left 5th finger did get stuck in flexed position during office visit. Neurologic: Gait normal. Reflexes normal and symmetric. Sensation grossly intact. +2 radial pulses. = grasps. ASSESSMENT/PLAN: 1. Pain of hand, unspecified laterality - ICD9: 729.5, ICD10: M79.643 ? Carpal tunnel vs trigger finger, vs duputren's contracture. Was unable to tolerate emg. Referral to ortho. Start etoldolac. - CONSULT TO ORTHOPAEDICS - ETODOLAC 400 MG TABLET Discussed treatment plan and patient voices understanding. Patient's questions answered appropriately. Medications and potential side effects were discussed and patient voices understanding. Return to the office as scheduled or as needed for worsening/no improvement. Janay Sanford APRN.SOCIAL STUDIES TEACHER documented in this encounter [facility] 04-18-2023 Miscellaneous Notes The following approved medication requests have been transmitted electronically. Requested Prescriptions Pending Prescriptions Disp Refills amLODIPine (NORVASC) 5 mg tablet 90 tablet 1 Sig: Take 1 tablet by mouth once daily. Charisse Byrne APRN.CNP Last Office Visit: 01/16/2023 Future Office Visit: None Requested Prescriptions Pending Prescriptions Disp Refills amLODIPine (NORVASC) 5 mg tablet 90 tablet 1 Sig: Take 1 tablet by mouth once daily. Date of Last Labs: 01/16/2023 documented in this encounter [facility] 03-20-2023 Note HNO ID: [id number] Author: Janay Sanford APRN.CNP Service: ? Author Type: Nurse Practitioner Type: Progress Notes Filed: 03/20/2023 9:44 AM Note Text: This is a 57 year old male who presents today with: Patient presents with: Wrist Pain: L wrist pain x couple weeks; on injury HISTORY OF PRESENT ILLNESS: Deon Gregorio is a 57 year old male. Patient presents with: Wrist Pain: L wrist pain x couple weeks; on injury Pt presents today with complaint of left wrist pain for the last couple of weeks. No known injury. He does use his left hand a lot to build models. Refers that when he picks up book, he can't hold the book. Poor grasp. Gets pain if he is holding dorsi-flexion hands. Right-handed. He has taken the celebrex several times. He has also tried topical pain relief cream. PAST MEDICAL HISTORY: PAST MEDICAL HISTORY Diagnosis Date Kidney stones PUD (peptic ulcer disease) [place] UGI, EGD PAST SURGICAL HISTORY Procedure Laterality Date LAPS SURG CHOLECYSTECTOMY W/CHOLANGIOGRAPHY 08/14/2021 PAST SURGICAL HISTORY OF UNDESCENDED TESTICLE AT [facility] 1ST INGUN [facility] AGE 6 YRS/> REDUCIBLE 05/15/2011 Right ALLERGIES Erythromycin, Lisinopril, Penicillins, Sulfa (Sulfonamide Antibiotics), and Tcn [Tetracyclines] MEDICATIONS Current Outpatient Medications Medication Sig fluticasone (FLONASE) 50 mcg/actuation nasal spray SPRAY 2 SPRAYS INTO EACH NOSTRIL EVERY DAY omeprazole (PRILOSEC) 20 mg capsule Take 1 capsule by mouth once daily. losartan-hydroCHLOROthiazide (HYZAAR) 100-12.5 mg per tablet Take 1 tablet by mouth once daily. rosuvastatin (CRESTOR) 5 mg tablet Take 1 tablet by mouth daily at bedtime. amLODIPine (NORVASC) 5 mg tablet Take 1 tablet by mouth once daily. celecoxib (CELEBREX) 200 mg capsule Take 1 capsule by mouth once daily. With food. peg 3350-Electrolytes (GOLYTELY) 236-22.74-6.74 -5.86 gram suspension Refer to printed prep instructions from your provider. gabapentin (NEURONTIN) 600 mg tablet Take 1 tablet by mouth once daily for 90 days. albuterol HFA (PROVENTIL HFA, VENTOLIN HFA) 90 mcg/actuation inhaler Inhale 2 Puffs as instructed every 4 hours as needed. No current facility-administered medications for this visit. FAMILY HISTORY Adopted: Yes Social History Tobacco Use Smoking status: Former Packs/day: 0.20 Years: 1.50 Pack years: 0.30 Types: Cigarettes Quit date: 11/11/2000 Years since quittin.3 Smokeless tobacco: Never Vaping Use Vaping Use: Never used Substance Use Topics Alcohol use: No Comment: quit 10 yrs ago Drug use: No EXAM: BP 142/90 Pulse 67 Resp 18 SpO2 98% PHYSICAL EXAM: General Appearance: Well appearing, alert, in no acute distress, well-hydrated, well nourished.. Skin: Skin color, texture, turgor normal, no suspicious rashes or lesions. Head: Normocephalic, no masses, lesions, tenderness or abnormalities. Eyes: Anicteric sclera. Extraocular movements are intact. . Musculoskeletal: + discomfort on the dorsal aspect of the left wrist. + discomfort with ROM. No swelling. No discoloration. Good cap refill. Negative Finklesteins, phelans' and tinels. Some tenderness of the medial epicondyl of the left elbow. Neurologic: Gait normal. ASSESSMENT/PLAN: 1. Left wrist pain - ICD9: 719.43, ICD10: M25.532 Start prednisone. Cock-up splint. Ice Topicals Let us know if no better/worsening. Discussed treatment plan and patient voices understanding. Patient's questions answered appropriately. Medications and potential side effects were discussed and patient voices understanding. Return to the office as scheduled or as needed for worsening/no improvement. Janay Sanford APRN.CNP [facility] 03-20-2023 Instructions Janay Sanford APRN.CNP - 03/20/2023 9:19 AM EDT Take the prednisone taper. The prednisone taper will be 4 tablets for 3 days; 3 tablets for 3 days; 2 tablets for 3 days; then 1 tablet for 3 days. Please do no use other anti-inflammatories (like ibuprofen, aleve, naproxen, etc) while you are on this medication. 2. Wrist splint. 3. Ice to the wrist. 4. Let us know if no better/worsening. documented in this encounter [facility] 03-20-2023 History of Presen t illness Narrative This is a 57 year old male who presents today with: Patient presents with: Wrist Pain: L wrist pain x couple weeks; on injury HISTORY OF PRESENT ILLNESS: Deon Gregorio is a 57 year old male. Patient presents with: Wrist Pain: L wrist pain x couple weeks; on injury Pt presents today with complaint of left wrist pain for the last couple of weeks. No known injury. He does use his left hand a lot to build models. Refers that when he picks up book, he can't hold the book. Poor grasp. Gets pain if he is holding dorsi-flexion hands. Right-handed. He has taken the celebrex several times. He has also tried topical pain relief cream. PAST MEDICAL HISTORY: PAST MEDICAL HISTORY Diagnosis Date Kidney stones PUD (peptic ulcer disease) diagnosed in [place] early on UGI, EGD PAST SURGICAL HISTORY Procedure Laterality Date LAPS SURG CHOLECYSTECTOMY W/CHOLANGIOGRAPHY 08/14/2021 PAST SURGICAL HISTORY OF UNDESCENDED TESTICLE AT [facility] 1ST INGUN [facility] AGE 6 YRS/> REDUCIBLE 05/15/2011 Right ALLERGIES Erythromycin, Lisinopril, Penicillins, Sulfa (Sulfonamide Antibiotics), and Tcn [Tetracyclines] MEDICATIONS Current Outpatient Medications Medication Sig fluticasone (FLONASE) 50 mcg/actuation nasal spray SPRAY 2 SPRAYS INTO EACH NOSTRIL EVERY DAY omeprazole (PRILOSEC) 20 mg capsule Take 1 capsule by mouth once daily. losartan-hydroCHLOROthiazide (HYZAAR) 100-12.5 mg per tablet Take 1 tablet by mouth once daily. rosuvastatin (CRESTOR) 5 mg tablet Take 1 tablet by mouth daily at bedtime. amLODIPine (NORVASC) 5 mg tablet Take 1 tablet by mouth once daily. celecoxib (CELEBREX) 200 mg capsule Take 1 capsule by mouth once daily. With food. peg 3350-Electrolytes (GOLYTELY) 236-22.74-6.74 -5.86 gram suspension Refer to printed prep instructions from your provider. gabapentin (NEURONTIN) 600 mg tablet Take 1 tablet by mouth once daily for 90 days. albuterol HFA (PROVENTIL HFA, VENTOLIN HFA) 90 mcg/actuation inhaler Inhale 2 Puffs as instructed every 4 hours as needed. No current facility-administered medications for this visit. FAMILY HISTORY Adopted: Yes Social History Tobacco Use Smoking status: Former Packs/day: 0.20 Years: 1.50 Pack years: 0.30 Types: Cigarettes Quit date: 11/11/2000 Years since quittin.3 Smokeless tobacco: Never Vaping Use Vaping Use: Never used Substance Use Topics Alcohol use: No Comment: quit 10 yrs ago Drug use: No EXAM: BP 142/90 Pulse 67 Resp 18 SpO2 98% PHYSICAL EXAM: General Appearance: Well appearing, alert, in no acute distress, well-hydrated, well nourished.. Skin: Skin color, texture, turgor normal, no suspicious rashes or lesions. Head: Normocephalic, no masses, lesions, tenderness or abnormalities. Eyes: Anicteric sclera. Extraocular movements are intact. . Musculoskeletal: + discomfort on the dorsal aspect of the left wrist. + discomfort with ROM. No swelling. No discoloration. Good cap refill. Negative Finklesteins, phelans' and tinels. Some tenderness of the medial epicondyl of the left elbow. Neurologic: Gait normal. ASSESSMENT/PLAN: 1. Left wrist pain - ICD9: 719.43, ICD10: M25.532 Start prednisone. Cock-up splint. Ice Topicals Let us know if no better/worsening. Discussed treatment plan and patient voices understanding. Patient's questions answered appropriately. Medications and potential side effects were discussed and patient voices understanding. Return to the office as scheduled or as needed for worsening/no improvement. Janay Sanford APRN.CNP documented in this encounter [facility] 02-06-2023 Miscellaneous Notes Pt notified. He verbalized understanding. Derek Harmon LPN I would suggest to try holding the celebrex first (continue the amlodipine) and see if the smell improves. Let us know in the next 1-2 weeks if improves. Janay Sanford APRN.CNP TC to pt, no other symptoms. He denies change in diet. Urine does not smell. Pt states he smells sweet like maple syrup . He states his sister noticed it also. Pt states he noticed it after starting new meds. Derek Harmon LPN Called and left a voicemail for the Patient to call back and ask for a nurse to receive the providers message. Lynda Concepcion, MARC I really have not hear that with these medications causing that issue. Any other symptoms? Changes in his diet? Does he notice any changes in the smell of the urine? Pt notified. He verbalized understanding. Pt states since he started new medication (not sure if celebrex or amlodipine ) that is making him smell sweet. Derek Harmon LPN LM for pt to contact office. Helena Washburn MA ----- Message from Janay Sanford APRN.SOCIAL STUDIES TEACHER sent at 01/28/2023 7:17 PM EDT ----- Can please let patient know that his stress test was normal. Janay Sanford APRN.DANIEL documented in this encounter [facility] 01-28-2023 Note HNO ID: [id number] Author: Camille Chavez RN Service: ? Author Type: Registered Nurse Type: Progress Notes Filed: 01/28/2023 11:49 AM Note Text: RADIOLOGY SERVICE PROGRESS NOTE SERVICE DATE: 01/28/2023 SERVICE TIME: 1120 PATIENT IDENTITY VERIFICATION COMPLETED USING TWO (2) METHODS: Patient confirmed name and Date of verbally. ALLERGIES REVIEWED: MEDICATIONS REVIEWED BY: PROCEDURE TYPE: NM STRESS: 0.4 mg of Lexiscan was administered IV at 1121 over 10 Seconds by Camille Chavez RN Reversal agent used:N/A LOT [id number] EXP 05/14/26 IV SITE: IV palced by nuclear tecnologist POST EXAM PIV STATUS: Discontinued by Auditor/Quality PATIENT DISCHARGED TO: Nuclear Medicine Department for post stress imaging A Diagnostic radioactive procedure has taken place, with no further precautions necessary other than routine body substance precautions. More information regarding radiation safety can be found using this link: [email or web address] [email or web address] SIGNATURE: Camille Chavez RN PATIENT NAME:Deon Gregorio DATE: 01/28/23 TIME: 11:47 AM [facility] 01-28-2023 Note HNO ID: [id number] Author: RT Brenda(R) Service: Nuclear Medicine Author Type: Technologist Type: Progress Notes Filed: 01/28/2023 3:21 PM Note Text: RADIOLOGY SERVICE PROGRESS NOTE SERVICE DATE: 01/28/2023 SERVICE TIME: 11:00 AM PATIENT IDENTITY VERIFICATION COMPLETED USING TWO (2) STANDARD IDENTIFIERS: Name and Date of confirmed by patient verbally FALL SCREENING: Has the patient had 2 falls in the last year or 1 fall with injury or currently using an Ambulatory Assistive Device (Walker, Cane, Wheelchair, Crutches, etc.)? No PATIENT GENDER DATA: .male ALLERGIES: Reviewed and unchanged MEDICATIONS REVIEWED: No PATIENT RELEVANT IMPLANT DATA REVIEWED: Not Applicable CREATININE: Creatinine Date Value Ref Range Status 01/16/2023 0.96 0.73 - 1.22 mg/dL Final 07/18/2022 0.96 0.73 - 1.22 mg/dL Final 02/07/2022 0.88 0.73 - 1.22 mg/dL Final Estimated Glomerular Filtration Rate Date Value Ref Range Status 01/16/2023 93 >=60 mL/min/1.73m? Final Comment: Estimated Glomerular Filtration Rate (eGFR) is calculated using the 2020 CKD-EPI creatinine equation. This equation utilizes serum creatinine, sex, and age as parameters. The creatinine assay has traceable calibration to isotope dilution-mass spectrometry. Refer to KDIGO guidelines for clinical interpretation. In patients with unstable renal function, e.g. those with acute kidney injury, the eGFR may not accurately reflect actual GFR. eGFR- Date Value Ref Range Status 08/30/2021 >60 Final Comment: Note: On 12/09/2021, the eGFR calculation will be updated to the NKF-ASN Task Force recommended 2020 CKD-EPI creatinine equation which does not include a race variable. For more information or to access a 2020 CKD-EPI calculator, visit the National Kidney Foundation website at kidney.org/professionals/kdoqi/g fr_calculator. P.O.C.T. RESULTS: N/A January 28, [address] PERFORMED: No IV SITE: Ambulatory: A peripheral IV was started in the Left antecubital site with a Angio cath: 22 gauge. POST EXAM PIV STATUS: Discontinued PROCEDURE TYPE: NM Stress: RESTING IMAGES ACQUIRED 01/21/23 50 mCi [id number] was administered IV for Stress Imaging at 11:21 by Sandhya Levin. ADMINISTRATION TIME: PATIENT DISCHARGED TO: Ambulatory patient, left NM department area. A Diagnostic radioactive procedure has taken place, with no further precautions necessary other than routine body substance precautions. More information regarding radiation safety can be found using this link: [email or web address] [email or web address] SIGNATURE: RT Brenda(R) PATIENT NAME: Deon Gregorio DATE: January 28, 2023 TIME: 3:19 PM PAGER/CONTACT #: [facility] 01-28-2023 History of Presen t illness Narrative RADIOLOGY SERVICE PROGRESS NOTE SERVICE DATE: 01/28/2023 SERVICE TIME: 11:00 AM PATIENT IDENTITY VERIFICATION COMPLETED USING TWO (2) STANDARD IDENTIFIERS: Name and Date of confirmed by patient verbally FALL SCREENING: Has the patient had 2 falls in the last year or 1 fall with injury or currently using an Ambulatory Assistive Device (Walker, Cane, Wheelchair, Crutches, etc.)? No PATIENT GENDER DATA: .male ALLERGIES: Reviewed and unchanged MEDICATIONS REVIEWED: No PATIENT RELEVANT IMPLANT DATA REVIEWED: Not Applicable CREATININE: Creatinine Date Value Ref Range Status 01/16/2023 0.96 0.73 - 1.22 mg/dL Final 07/18/2022 0.96 0.73 - 1.22 mg/dL Final 02/07/2022 0.88 0.73 - 1.22 mg/dL Final Estimated Glomerular Filtration Rate Date Value Ref Range Status 01/16/2023 93 >=60 mL/min/1.73m Final Comment: Estimated Glomerular Filtration Rate (eGFR) is calculated using the 2020 CKD-EPI creatinine equation. This equation utilizes serum creatinine, sex, and age as parameters. The creatinine assay has traceable calibration to isotope dilution-mass spectrometry. Refer to KDIGO guidelines for clinical interpretation. In patients with unstable renal function, e.g. those with acute kidney injury, the eGFR may not accurately reflect actual GFR. eGFR- Date Value Ref Range Status 08/30/2021 >60 Final Comment: Note: On 12/09/2021, the eGFR calculation will be updated to the NKF-ASN Task Force recommended 2020 CKD-EPI creatinine equation which does not include a race variable. For more information or to access a 2020 CKD-EPI calculator, visit the National Kidney Foundation website at kidney.org/professionals/kdoqi/g fr_calculator. P.O.C.T. RESULTS: N/A January 28, [address] PERFORMED: No IV SITE: Ambulatory: A peripheral IV was started in the Left antecubital site with a Angio cath: 22 gauge. POST EXAM PIV STATUS: Discontinued PROCEDURE TYPE: NM Stress: RESTING IMAGES ACQUIRED 01/21/23 50 mCi [id number] was administered IV for Stress Imaging at 11:21 by Sandhya Levin. ADMINISTRATION TIME: PATIENT DISCHARGED TO: Ambulatory patient, left [place] department area. A Diagnostic radioactive procedure has taken place, with no further precautions necessary other than routine body substance precautions. More information regarding radiation safety can be found using this link: [email or web address] [email or web address]-%20Diagnostic%20N uclear%20Medicine%20Procedures.p df SIGNATURE: RT Brenda(Arti) PATIENT NAME: Deon Gregorio DATE: January 28, 2023 TIME: 3:19 PM PAGER/CONTACT #: documented in this encounter [facility] 01-24-2023 Miscellaneous Notes This nurse spoke with the patient and patient verbalizes understanding. Camille Chavez RN You are scheduled for a stress test on 01/28/23. This stress test will appear as 3 appointments on your schedule. You may get multiple reminder calls, but please arrive at the earliest scheduled appointment. Please follow below instructions: *NOTHING BY MOUTH 4 HOURS prior to this test. (you may have sips of water) *NO CAFFEINE FOR 24 HOURS PRIOR TO TESTING (including TEA even decaf, COFFEE- even decaf, CHOCOLATE, TRISTAN- even decaf) *Do NOT take MEDICATIONS CONTAINING CAFFEINE/XANTHINE for 24 HOURS prior to testing: Theophylline, Trental, Excedrin, Anacin, Goody Powders, No Doz, Vivarin, Midol, Diurex, Fiorinal, Fioricet, Esgic (butalbital) *Do NOT take Calcium Channel Blockers 24 HOURS prior to test. *Do NOT take Beta blockers 24 HOURS prior to test UNLESS your doctor tells you otherwise. *Do NOT use the following medications 48 HOURS prior to this test: Viagra(Sildenafil citrate), Cialis(Tadalafil), Vardenafil (Levitra, Stanyx), Avanfil (Stendra). *Do not take any of these meds prior to test unless provider directs you otherwise; Nitroglycerine (ex:Deponit, Nitrostat) Isosorbide (ex:Isordil, Sorbitrate,Imdur,Ismo). Medications on your list you should hold for 24 HOURS: amlodipine (Norvasc) and losartan-hydrochlorothiazide (Hyzaar) *All other medications may be taken as you normally would. *Guidelines for Diabetics: If you take insulin to control your blood sugar, ask you physician what amount you should take the day of the test. If you take pills to control blood sugar, on the day of the test, do NOT take them until AFTER the test. *FAILURE TO FOLLOW THESE INSTRUCTIONS WILL RESULT IN HAVING TO RESCHEDULE THE TEST. *Please wear comfortable clothes with a short-sleeved shirt and comfortable walking shoes. *If you use an inhaler, bring it along with you just in case *THIS TEST MAY TAKE UP TO 3 HOURS TO COMPLETE. Please check in on the first floor at Radiology: [address]; [place] [address] * If you need to cancel or reschedule this test or have any questions regarding this test, please call [phone]. documented in this encounter [facility] 01-21-2023 Note HNO ID: [id number] Author: RT Brenda(R) Service: Nuclear Medicine Author Type: Technologist Type: Progress Notes Filed: 01/21/2023 3:57 PM Note Text: RADIOLOGY SERVICE PROGRESS NOTE SERVICE DATE: 01/21/2023 SERVICE TIME: 08:45 AM PATIENT IDENTITY VERIFICATION COMPLETED USING TWO (2) STANDARD IDENTIFIERS: Name and Date of confirmed by patient verbally FALL SCREENING: Has the patient had 2 falls in the last year or 1 fall with injury or currently using an Ambulatory Assistive Device (Walker, Cane, Wheelchair, Crutches, etc.)? No PATIENT GENDER DATA: .male ALLERGIES: Reviewed and unchanged MEDICATIONS REVIEWED: No PATIENT RELEVANT IMPLANT DATA REVIEWED: Not Applicable CREATININE: Creatinine Date Value Ref Range Status 01/16/2023 0.96 0.73 - 1.22 mg/dL Final 07/18/2022 0.96 0.73 - 1.22 mg/dL Final 02/07/2022 0.88 0.73 - 1.22 mg/dL Final Estimated Glomerular Filtration Rate Date Value Ref Range Status 01/16/2023 93 >=60 mL/min/1.73m? Final Comment: Estimated Glomerular Filtration Rate (eGFR) is calculated using the 2020 CKD-EPI creatinine equation. This equation utilizes serum creatinine, sex, and age as parameters. The creatinine assay has traceable calibration to isotope dilution-mass spectrometry. Refer to KDIGO guidelines for clinical interpretation. In patients with unstable renal function, e.g. those with acute kidney injury, the eGFR may not accurately reflect actual GFR. eGFR- Date Value Ref Range Status 08/30/2021 >60 Final Comment: Note: On 12/09/2021, the eGFR calculation will be updated to the NKF-ASN Task Force recommended 2020 CKD-EPI creatinine equation which does not include a race variable. For more information or to access a 2020 CKD-EPI calculator, visit the National Kidney [employer] website at kidney.org/professionals/kdoqi/g fr_calculator. P.O.C.T. RESULTS: N/A January 21, [address] PERFORMED: No IV SITE: Ambulatory: A peripheral IV was started in the Left antecubital site with a Angio cath: 22 gauge. POST EXAM PIV STATUS: Discontinued PROCEDURE TYPE: NM Stress: 15.5mCi [id number] was administered IV for Rest Imaging at 08:50 by Sandhya Levin. STRESS PORTION OF THE TEST CANCELLED. RETURNING 01/28/23 TO FINISH THE TEST. ADMINISTRATION TIME: PATIENT DISCHARGED TO: Ambulatory patient, left [place] department area. A Diagnostic radioactive procedure has taken place, with no further precautions necessary other than routine body substance precautions. More information regarding radiation safety can be found using this link: [email or web address] 0Protection %[email or web address]%20Nuclear%20Me dicine%20Procedures.pdf SIGNATURE: RT Brenda(R) PATIENT NAME: Deon Gregorio DATE: January 21, 2023 TIME: 3:18 PM PAGER/CONTACT #: [facility] 01-21-2023 History of Presen t illness Narrative RADIOLOGY SERVICE PROGRESS NOTE SERVICE DATE: 01/21/2023 SERVICE TIME: 08:45 AM PATIENT IDENTITY VERIFICATION COMPLETED USING TWO (2) STANDARD IDENTIFIERS: Name and Date of confirmed by patient verbally FALL SCREENING: Has the patient had 2 falls in the last year or 1 fall with injury or currently using an Ambulatory Assistive Device (Walker, Cane, Wheelchair, Crutches, etc.)? No PATIENT GENDER DATA: .male ALLERGIES: Reviewed and unchanged MEDICATIONS REVIEWED: No PATIENT RELEVANT IMPLANT DATA REVIEWED: Not Applicable CREATININE: Creatinine Date Value Ref Range Status 01/16/2023 0.96 0.73 - 1.22 mg/dL Final 07/18/2022 0.96 0.73 - 1.22 mg/dL Final 02/07/2022 0.88 0.73 - 1.22 mg/dL Final Estimated Glomerular Filtration Rate Date Value Ref Range Status 01/16/2023 93 >=60 mL/min/1.73m Final Comment: Estimated Glomerular Filtration Rate (eGFR) is calculated using the 2020 CKD-EPI creatinine equation. This equation utilizes serum creatinine, sex, and age as parameters. The creatinine assay has traceable calibration to isotope dilution-mass spectrometry. Refer to KDIGO guidelines for clinical interpretation. In patients with unstable renal function, e.g. those with acute kidney injury, the eGFR may not accurately reflect actual GFR. eGFR- Date Value Ref Range Status 08/30/2021 >60 Final Comment: Note: On 12/09/2021, the eGFR calculation will be updated to the NKF-ASN Task Force recommended 2020 CKD-EPI creatinine equation which does not include a race variable. For more information or to access a 2020 CKD-EPI calculator, visit the National Kidney Foundation website at kidney.org/professionals/kdoqi/g fr_calculator. P.O.C.T. RESULTS: N/A January 21, [address] PERFORMED: No IV SITE: Ambulatory: A peripheral IV was started in the Left antecubital site with a Angio cath: 22 gauge. POST EXAM PIV STATUS: Discontinued PROCEDURE TYPE: NM Stress: 15.5mCi [id number] was administered IV for Rest Imaging at 08:50 by Sandhya Levin. STRESS PORTION OF THE TEST CANCELLED. RETURNING 01/28/23 TO FINISH THE TEST. ADMINISTRATION TIME: PATIENT DISCHARGED TO: Ambulatory patient, left [place] department area. A Diagnostic radioactive procedure has taken place, with no further precautions necessary other than routine body substance precautions. More information regarding radiation safety can be found using this link: [email or web address]%20N uclear%20Medicine%20Procedures.p df SIGNATURE: ELAYNE Gutierrez) PATIENT NAME: Deon Gregorio DATE: January 21, 2023 TIME: 3:18 PM PAGER/CONTACT #: documented in this encounter [facility] 01-17-2023 Miscellaneous Notes Call to pt, LVM to contact office to review below instructions: You are scheduled for a stress test on 01/21/23. This stress test will appear as 3 appointments on your schedule. You may get multiple reminder calls, but please arrive at the earliest scheduled appointment. Please follow below instructions: *NOTHING BY MOUTH 4 HOURS prior to this test. (you may have sips of water) *NO CAFFEINE FOR 24 HOURS PRIOR TO TESTING (including TEA even decaf, COFFEE- even decaf, CHOCOLATE, TRISTAN- even decaf) *Do NOT take MEDICATIONS CONTAINING CAFFEINE/XANTHINE for 24 HOURS prior to testing: Theophylline, Trental, Excedrin, Anacin, Goody Powders, No Doz, Vivarin, Midol, Diurex, Fiorinal, Fioricet, Esgic (butalbital) *Do NOT take Calcium Channel Blockers 24 HOURS prior to test. *Do NOT take Beta blockers 24 HOURS prior to test UNLESS your doctor tells you otherwise. *Do NOT use the following medications 48 HOURS prior to this test: Viagra(Sildenafil citrate), Cialis(Tadalafil), Vardenafil (Levitra, Stanyx), Avanfil (Stendra). *Do not take any of these meds prior to test unless provider directs you otherwise; Nitroglycerine (ex:Deponit, Nitrostat) Isosorbide (ex:Isordil, Sorbitrate,Imdur,Ismo). Medications on your list you should hold for 24 HOURS: Amlodipine (Norvasc) *All other medications may be taken as you normally would. *Guidelines for Diabetics: If you take insulin to control your blood sugar, ask you physician what amount you should take the day of the test. If you take pills to control blood sugar, on the day of the test, do NOT take them until AFTER the test. *FAILURE TO FOLLOW THESE INSTRUCTIONS WILL RESULT IN HAVING TO RESCHEDULE THE TEST. *If you use an inhaler, bring it along with you just in case *THIS TEST MAY TAKE UP TO 3 HOURS TO COMPLETE. Please check in on the first floor at Radiology: [address]; [place] [address] * If you need to cancel or reschedule this test or have any questions regarding this test, please call [phone]. documented in this encounter [facility] 01-16-2023 Note HNO ID: [id number] Author: Janay Sanford APRN.SOCIAL STUDIES TEACHER Service: ? Author Type: Nurse Practitioner Type: Progress Notes Filed: 01/25/2023 1:14 PM Note Text: This is a 57 year old male who presents today with: Patient presents with: 6 Month Exam HISTORY OF PRESENT ILLNESS: Deon Gregorio is a 57 year old male. Patient presents with: 6 Month Exam HTN: Patient is compliant with meds Yes Monitors bp at home: No. Denies side effects: Yes. Chest pain: no Dyspnea: No. Edema: No. Palpitations: No. Syncope: No. Headache: No. Dizziness: No. HYPERLIPIDEMIA: Patient is taking medications: Yes. Patient is watching diet: No. Patient denies myalgias: Yes. Patient denies gi upset: Yes Refers that the meloxicam has been helpful, but still getting back pain -- most notable in the mornings when he gets up. Inconclusive stress testing Pt had a treadmill stress test 06/04/22. Inconclusive d/t inadequate heartrate response. He was ordered a nuclear stress test to follow-up on this; however never completed (initially was going to schedule w/ [facility], but then decided [facility]). Today he reports that never completed stress testing. PAST MEDICAL HISTORY: PAST MEDICAL HISTORY Diagnosis Date Kidney stones PUD (peptic ulcer disease) diagnosed [place] [facility] [place]GI, EGD PAST SURGICAL HISTORY Procedure Laterality Date LAPS SURG CHOLECYSTECTOMY W/CHOLANGIOGRAPHY 08/14/2021 PAST SURGICAL HISTORY OF UNDESCENDED TESTICLE AT [facility]ST ING[facility] AGE 6 YRS/> REDUCIBLE 05/15/2011 Right ALLERGIES Erythromycin, Lisinopril, Penicillins, Sulfa (Sulfonamide Antibiotics), and Tcn [Tetracyclines] MEDICATIONS Current Outpatient Medications Medication Sig omeprazole (PRILOSEC) 20 mg capsule Take 1 capsule by mouth once daily. losartan-hydroCHLOROthiazide (HYZAAR) 100-12.5 mg per tablet Take 1 tablet by mouth once daily. meloxicam (MOBIC) 15 mg tablet Take 1 tablet by mouth once daily. With food. rosuvastatin (CRESTOR) 5 mg tablet Take 1 tablet by mouth daily at bedtime. gabapentin (NEURONTIN) 600 mg tablet Take 1 tablet by mouth once daily for 90 days. fluticasone (FLONASE) 50 mcg/actuation nasal spray SPRAY 2 SPRAYS INTO EACH NOSTRIL EVERY DAY albuterol HFA (PROVENTIL HFA, VENTOLIN HFA) 90 mcg/actuation inhaler Inhale 2 Puffs as instructed every 4 hours as needed. peg 3350-Electrolytes (GOLYTELY) 236-22.74-6.74 -5.86 gram suspension Refer to printed prep instructions from your provider. No current facility-administered medications for this visit. FAMILY HISTORY Adopted: Yes Social History Tobacco Use Smoking status: Former Packs/day: 0.20 Years: 1.50 Pack years: 0.30 Types: Cigarettes Quit date: 11/11/2000 Years since quittin.1 Smokeless tobacco: Never Vaping Use Vaping Use: Never used Substance Use Topics Alcohol use: No Comment: quit 10 yrs ago Drug use: No EXAM: BP 168/100 Pulse 68 Resp 18 Wt 111.6 kg (246 lb) SpO2 98% BMI 36.86 kg/m? PHYSICAL EXAM: General Appearance: Well appearing, alert, in no acute distress, well-hydrated, well nourished.. Skin: Skin color, texture, turgor normal, no suspicious rashes or lesions. Head: Normocephalic, no masses, lesions, tenderness or abnormalities. Eyes: Anicteric sclera. Pupils are equally round and reactive to light. Extraocular movements are intact. . Neck: Supple, no adenopathy; thyroid symmetric, normal size, no bruits. Lungs: Lungs clear to auscultation. No wheezing, rhonchi, rales.. Heart: RRR without murmur, gallop, or rubs. No ectopy. Extremities: No deformities, edema, skin discoloration, clubbing or cyanosis. Good capillary refill. . Neurologic: Gait normal. Reflexes normal and symmetric. Sensation grossly intact.. ASSESSMENT/PLAN: 1. Primary hypertension - ICD9: 401.9, ICD10: I10 (primary diagnosis) - suboptimal control - Add amlodipine (Norvasc) - Recommended regular aerobic exercise. - Recommend home blood pressure monitoring, to bring results in on next visit - Goal of BP <130/80 - LOSARTAN 100 MG-HYDROCHLOROTHIAZIDE 12.5 MG TABLET - AMLODIPINE 5 MG TABLET - COMP METABOLIC PANEL Recheck BP in a month. 2. Hyperlipidemia, mixed - ICD9: 272.2, ICD10: E78.2 - good control - Continue current medication. - ROSUVASTATIN 5 MG TABLET - COMP METABOLIC PANEL - LIPID PANEL BASIC 3 Chronic low back pain, unspecified back pain laterality, unspecified whether sciatica present - ICD9: 724.2, 338.29, ICD10: M54.50, G89.29 Will stop meloxicam. Start celebrex. REcheck in a month. - CELECOXIB 200 MG CAPSULE 4. Other chest pain - ICD9: 786.59, ICD10: R07.89 Pt never completed the previously ordered nuclear stress testing after having the inconclusive treadmill testing. Will go ahead and reorder testing. Patient would like to complete w/ [facility]. Discussed treatment plan and patient voices understanding. Patient's questions answered (more content not included)... [facility] 01-16-2023 Instructions Janay Sanford APRN.CNP - 01/16/2023 1:15 PM EDT Schedule stress test (at [place]). Start the amlodipine daily. Stop the meloxicam. Start the celebrex (to help with pain) Recheck in 1 month -- sooner if needed. documented in this encounter [facility] 01-16-2023 History of Presen t illness Narrative This is a 57 year old male who presents today with: Patient presents with: 6 Month Exam HISTORY OF PRESENT ILLNESS: Deon Gregorio is a 57 year old male. Patient presents with: 6 Month Exam HTN: Patient is compliant with meds Yes Monitors bp at home: No. Denies side effects: Yes. Chest pain: no Dyspnea: No. Edema: No. Palpitations: No. Syncope: No. Headache: No. Dizziness: No. HYPERLIPIDEMIA: Patient is taking medications: Yes. Patient is watching diet: No. Patient denies myalgias: Yes. Patient denies gi upset: Yes Refers that the meloxicam has been helpful, but still getting back pain -- most notable in the mornings when he gets up. PAST MEDICAL HISTORY: PAST MEDICAL HISTORY Diagnosis Date Kidney stones PUD (peptic ulcer disease) diagnosed in [facility] [place]GI, EGD PAST SURGICAL HISTORY Procedure Laterality Date LAPS SURG CHOLECYSTECTOMY W/CHOLANGIOGRAPHY 08/14/2021 PAST SURGICAL HISTORY OF UNDESCENDED TESTICLE AT [facility] 1ST INGUN [facility] AGE 6 YRS/> REDUCIBLE 05/15/2011 Right ALLERGIES Erythromycin, Lisinopril, Penicillins, Sulfa (Sulfonamide Antibiotics), and Tcn [Tetracyclines] MEDICATIONS Current Outpatient Medications Medication Sig omeprazole (PRILOSEC) 20 mg capsule Take 1 capsule by mouth once daily. losartan-hydroCHLOROthiazide (HYZAAR) 100-12.5 mg per tablet Take 1 tablet by mouth once daily. meloxicam (MOBIC) 15 mg tablet Take 1 tablet by mouth once daily. With food. rosuvastatin (CRESTOR) 5 mg tablet Take 1 tablet by mouth daily at bedtime. gabapentin (NEURONTIN) 600 mg tablet Take 1 tablet by mouth once daily for 90 days. fluticasone (FLONASE) 50 mcg/actuation nasal spray SPRAY 2 SPRAYS INTO EACH NOSTRIL EVERY DAY albuterol HFA (PROVENTIL HFA, VENTOLIN HFA) 90 mcg/actuation inhaler Inhale 2 Puffs as instructed every 4 hours as needed. peg 3350-Electrolytes (GOLYTELY) 236-22.74-6.74 -5.86 gram suspension Refer to printed prep instructions from your provider. No current facility-administered medications for this visit. FAMILY HISTORY Adopted: Yes Social History Tobacco Use Smoking status: Former Packs/day: 0.20 Years: 1.50 Pack years: 0.30 Types: Cigarettes Quit date: 11/11/2000 Years since quittin.1 Smokeless tobacco: Never Vaping Use Vaping Use: Never used Substance Use Topics Alcohol use: No Comment: quit 10 yrs ago Drug use: No EXAM: BP 168/100 Pulse 68 Resp 18 Wt 111.6 kg (246 lb) SpO2 98% BMI 36.86 kg/m PHYSICAL EXAM: General Appearance: Well appearing, alert, in no acute distress, well-hydrated, well nourished.. Skin: Skin color, texture, turgor normal, no suspicious rashes or lesions. Head: Normocephalic, no masses, lesions, tenderness or abnormalities. Eyes: Anicteric sclera. Pupils are equally round and reactive to light. Extraocular movements are intact. . Neck: Supple, no adenopathy; thyroid symmetric, normal size, no bruits. Lungs: Lungs clear to auscultation. No wheezing, rhonchi, rales.. Heart: RRR without murmur, gallop, or rubs. No ectopy. Extremities: No deformities, edema, skin discoloration, clubbing or cyanosis. Good capillary refill. . Neurologic: Gait normal. Reflexes normal and symmetric. Sensation grossly intact.. ASSESSMENT/PLAN: 1. Primary hypertension - ICD9: 401.9, ICD10: I10 (primary diagnosis) - suboptimal control - Add amlodipine (Norvasc) - Recommended regular aerobic exercise. - Recommend home blood pressure monitoring, to bring results in on next visit - Goal of BP <130/80 - LOSARTAN 100 MG-HYDROCHLOROTHIAZIDE 12.5 MG TABLET - AMLODIPINE 5 MG TABLET - COMP METABOLIC PANEL Recheck BP in a month. 2. Hyperlipidemia, mixed - ICD9: 272.2, ICD10: E78.2 - good control - Continue current medication. - ROSUVASTATIN 5 MG TABLET - COMP METABOLIC PANEL - LIPID PANEL BASIC 3 Chronic low back pain, unspecified back pain laterality, unspecified whether sciatica present - ICD9: 724.2, 338.29, ICD10: M54.50, G89.29 Will stop meloxicam. Start celebrex. REcheck in a month. - CELECOXIB 200 MG CAPSULE Discussed treatment plan and patient voices understanding. Patient's questions answered appropriately. Medications and potential side effects were discussed and patient voices understanding. Return to the office as scheduled or as needed for worsening/no improvement. Janay Sanford APRN.DANIEL documented in this encounter [facility] 11-29-2022 Miscellaneous Notes LAURO 07/18/22 Future visit 01/16/23 Patient has been identified by name and date of : Yes Last office visit in this department: 07/18/2022 RX INSTRUCTIONS: Patient aware RX will be sent to pharmacy. No need to notify patient. Patient phones requesting refills as follows: Requested Prescriptions Pending Prescriptions Disp Refills omeprazole (PRILOSEC) 20 mg capsule 30 capsule 5 Sig: Take 1 capsule by mouth once daily. Please review and advise. Abbi Humphries Pss documented in this encounter [facility] 09-13-2022 Miscellaneous Notes Patient was seen in office. Letter sent to patient. TC to pt, left message to return call to office. Derek Harmon LPN Left message for patient to call office. Left message for patient to call office. Left message for patient to call office. ----- Message from Candida Moreno PA-C sent at 06/06/2022 11:16 AM EDT ----- Please advise exercise stress test was inconclusive due to patient's poor exercise tolerance. If he still having chest pain, we need to follow-up with a pharmacologic stress test. Please verify if he is still having symptoms. Thanks, Gildardo Moreno PA-C documented in this encounter [facility] 07-18-2022 Miscellaneous Notes Faxed orders and last OV note to [facility] Central Scheduling. Faxed to # [phone]. Labs from today were still being processed. Called and left a detailed voicemail notifying patient of providers message. Hospital phone number was left in case patient had any questions. Lynda Concepcion RN So, fax the order to [facility]. Summary: Stress Test [facility] Referral Patient would like to go to [facility] for the [place] Cardiac Perf Stress/Pharm. Patient stated that this would be better to do on a Saturday due to work. documented in this encounter [facility] 07-18-2022 Instructions Janay Sanford APRN.CNP - 07/18/2022 11:33 AM EDT Continue the same medications. Schedule the stress test. Get labwork. Recheck in 6 months. documented in this encounter [facility] 07-18-2022 History of Presen t illness Narrative This is a 56 year old male who presents today with: Patient presents with: 6 Month Exam HISTORY OF PRESENT ILLNESS: Deon Gregorio is a 56 year old male. Patient presents with: 6 Month Exam Pt presents today for a 6-month recheck. HTN: Patient is compliant with meds Yes Monitors bp at home: No. Denies side effects: Yes. Chest pain: see below. Dyspnea: No. Edema: No. Palpitations: No. Syncope: No. Headache: No. Dizziness: No. Patient also noted to have a stress test completed a month or so ago that was nondiagnostic due to inadequate heart rate response. Unclear if any further episodes of chest pain, but reports no further episodes of pain that were as significant as when he went to the ER. GERD: Controlled w/ the PPI. HYPERLIPIDEMIA: Patient is taking medications: Yes. Patient is watching diet: No. Patient denies myalgias: Yes. Patient denies gi upset: Yes PAST MEDICAL HISTORY: PAST MEDICAL HISTORY Diagnosis Date Kidney stones PUD (peptic ulcer disease) diagnosed in [facility] [place]GI, EGD PAST SURGICAL HISTORY Procedure Laterality Date LAPS SURG CHOLECYSTECTOMY W/CHOLANGIOGRAPHY 08/14/2021 PAST SURGICAL HISTORY OF UNDESCENDED TESTICLE AT [facility] 1ST INGUN [facility] AGE 6 YRS/> REDUCIBLE 05/15/2011 Right ALLERGIES Erythromycin, Lisinopril, Penicillins, Sulfa (Sulfonamide Antibiotics), and Tcn [Tetracyclines] MEDICATIONS Current Outpatient Medications Medication Sig meloxicam (MOBIC) 15 mg tablet Take 1 tablet by mouth once daily. With food. omeprazole (PRILOSEC) 20 mg capsule Take 1 capsule by mouth once daily. gabapentin (NEURONTIN) 600 mg tablet Take 1 tablet by mouth once daily for 90 days. rosuvastatin (CRESTOR) 5 mg tablet Take 1 tablet by mouth daily at bedtime. fluticasone (FLONASE) 50 mcg/actuation nasal spray SPRAY 2 SPRAYS INTO EACH NOSTRIL EVERY DAY losartan-hydroCHLOROthiazide (HYZAAR) 100-12.5 mg per tablet Take 1 tablet by mouth once daily. albuterol HFA (PROVENTIL HFA, VENTOLIN HFA) 90 mcg/actuation inhaler Inhale 2 Puffs as instructed every 4 hours as needed. peg 3350-Electrolytes (GOLYTELY) 236-22.74-6.74 -5.86 gram suspension Refer to printed prep instructions from your provider. No current facility-administered medications for this visit. FAMILY HISTORY Adopted: Yes Social History Tobacco Use Smoking status: Former Packs/day: 0.20 Years: 1.50 Pack years: 0.30 Types: Cigarettes Quit date: 11/11/2000 Years since quittin.6 Smokeless tobacco: Never Vaping Use Vaping Use: Never used Substance Use Topics Alcohol use: No Comment: quit 10 yrs ago Drug use: No EXAM: BP 142/90 Pulse 80 Resp 18 Wt 106.1 kg (234 lb) SpO2 96% BMI 35.06 kg/m 134/90 PHYSICAL EXAM: General Appearance: Well appearing, alert, in no acute distress, well-hydrated, well nourished.. Skin: Skin color, texture, turgor normal, no suspicious rashes or lesions. Head: Normocephalic, no masses, lesions, tenderness or abnormalities. Eyes: Anicteric sclera. Pupils are equally round and reactive to light. Extraocular movements are intact. . Lungs: Lungs clear to auscultation. No wheezing, rhonchi, rales.. Heart: RRR without murmur, gallop, or rubs. No ectopy. Extremities: No deformities, edema, skin discoloration, clubbing or cyanosis. Good capillary refill. . Neurologic: Gait normal. ASSESSMENT/PLAN: 1. Primary hypertension - ICD9: 401.9, ICD10: I10 (primary diagnosis) - fair control - Continue current medication(s) - Recommended regular aerobic exercise. - Recommend home blood pressure monitoring, to bring results in on next visit - Goal of BP <130/80 - LOSARTAN 100 MG-HYDROCHLOROTHIAZIDE 12.5 MG TABLET - COMP METABOLIC PANEL - CBC + DIFF 2. Encounter for long-term (current) use of non-steroidal anti-inflammatories - ICD9: V58.64, ICD10: Z79.1 - MELOXICAM 15 MG TABLET 3. Hyperlipidemia, mixed - ICD9: 272.2, ICD10: E78.2 - Continue current medication. - ROSUVASTATIN 5 MG TABLET - LIPID PANEL BASIC - COMP METABOLIC PANEL 4. Other chest pain - ICD9: 786.59, ICD10: R07.89 We will go ahead and order the nuclear stress test since his exercise stress test had an inadequate heart rate response and was nondiagnostic. - NM CARDIAC PERF STRESS/PHARM - LEXISCAN 0.4 MG/5 ML INTRAVENOUS SYRINGE - INSERT IV (NV,OH) - IV DISCONTINUE 5. Encounter for immunization - ICD9: V03.89, ICD10: Z23 - PFIZER-BIONTECH COVID-19 BIVALENT BOOSTER VACCINE, AGE 12+ YR - INFLUENZA VACCINE QUADRIVALENT 6 MO - 64 YRS IM 6. Gastroesophageal reflux disease, unspecified whether esophagitis present - ICD9: 530.81, ICD10: K21.9 Stable on PPI. - MAGNESIUM BLD Discussed treatment plan and patient voices understanding. Patient's questions answered appropriately. Medications and potential side effects were discussed and patient voices understanding. Return to the office as scheduled or as needed for worsening/no improvement. Janay Sanford APRN.SOCIAL STUDIES TEACHER This note was partially generated using [employer] recognition system. Note was reviewed for accuracy. There may be minor misspellings or grammar miscues with [employer] voice recognition. documented in this encounter [facility] 04-23-2022 Instructions Candida Moreno PA-C - 04/23/2022 1:40 PM EDT Increase gabapentin to 600mg at bedtime. If any issues with area of skin tag removal, let me know. Try not to bother the area for 24h. You may shower as needed. documented in this encounter [facility] 04-23-2022 History of Presen t illness Narrative 56 year old male with c/o here for: Follow-up on initiation of gabapentin for possible radicular symptoms with suspected foraminal stenosis causing left elbow pain and numbness and tingling to fourth and fifth fingers and occasionally entire hand. Gabapentin seems to let him sleep without waking up, not sure if it helps pain otherwise. For some reason patient did not want to see providers through [facility]. Patient is seeing pain management in [place] not associated with the [facility]. Discussing surgery Scheduled for MRI Also here for removal of skin tag on mid back. HISTORIES FAMILY HISTORY Adopted: Yes PAST MEDICAL HISTORY Diagnosis Date Kidney stones PUD (peptic ulcer disease) diagnosed in [facility] [place] ' on UGI, EGD PAST SURGICAL HISTORY Procedure Laterality Date LAPS SURG CHOLECYSTECTOMY W/CHOLANGIOGRAPHY 08/14/2021 PAST SURGICAL HISTORY OF UNDESCENDED TESTICLE AT [facility]ST [facility] AGE 6 YRS/> REDUCIBLE 05/15/2011 Right Social History Tobacco Use Smoking status: Former Smoker Packs/day: 0.20 Years: 1.50 Pack years: 0.30 Types: Cigarettes Quit date: 11/11/2000 Years since quittin.4 Smokeless tobacco: Never Used Vaping Use Vaping Use: Never used Substance Use Topics Alcohol use: No Comment: quit 10 yrs ago Drug use: No ACTIVE PROBLEM LIST Mild Intermittent Asthma Without Complication Inguinal Hernia Chronic Right-Sided Low Back Pain With Right-Sided Sciatica Essential Hypertension, Benign Gerd (Gastroesophageal Reflux Disease) Class 2 Obesity Due to Excess Calories With Body Mass Index (Bmi) of 38.0 to 38.9 in Adult Calculus of Gallbladder With Cholecystitis Without Biliary Obstruction Screening for Hyperlipidemia Cervicalgia Numbness of Fingers Foraminal Stenosis of Cervical Region Ddd (Degenerative Disc Disease), Cervical Current Outpatient Medications Medication Sig Dispense Refill rosuvastatin (CRESTOR) 5 mg tablet Take 1 tablet by mouth daily at bedtime. 30 tablet 5 fluticasone (FLONASE) 50 mcg/actuation nasal spray SPRAY 2 SPRAYS INTO EACH NOSTRIL EVERY DAY 18.2 mL 11 gabapentin (NEURONTIN) 300 mg capsule Take 1 capsule by mouth daily at bedtime for 90 days. 30 capsule 2 losartan-hydroCHLOROthiazide (HYZAAR) 100-12.5 mg per tablet Take 1 tablet by mouth once daily. 30 tablet 5 albuterol HFA (PROVENTIL HFA, VENTOLIN HFA) 90 mcg/actuation inhaler Inhale 2 Puffs as instructed every 4 hours as needed. 18 g 1 meloxicam (MOBIC) 15 mg tablet Take 1 tablet by mouth once daily. With food. 30 tablet 5 omeprazole (PRILOSEC) 20 mg capsule Take 1 capsule by mouth once daily. 30 capsule 5 No current facility-administered medications for this visit. SPIROMETRY Never done BP CONTROLLED (<130/80) Never done SHINGRIX VACCINE(1 of 2) Never done DEPRESSION SCREENING due on 08/10/2020 COLORECTAL CANCER SCREENING due on 08/13/2020 PNEUMOCOCCAL(2 - PCV) due on 07/22/2021 PROSTATE CANCER SCREENING DISCUSSION due on 12/27/2021 COVID-19 VACCINE(3 - Booster for Pfizer series) due on 04/01/2022 EXAM: BP 134/80 Pulse 92 Resp 20 Wt 108.4 kg (239 lb) SpO2 99% BMI 35.81 kg/m Pleasant obese adult man in no acute distress. Alert and oriented all spheres. Normal affect and cognition. Speech normal. No deficits to learning or comprehension. Skin warm, dry, pink to lips and nailbeds. Normal turgor. Respirations regular and unlabored. Patient has a 1 cm skin tag with a narrow stalk mid back Procedure: Area was cleansed with ChloraPrep, sterile field maintained. Anesthesia obtained with 1% lidocaine 2 mL injected at the base and through the lesion. Electrocautery was used to curette the lesion off, bleeding was controlled. Area was then covered with a Band-Aid. Tolerated procedure well. ASSESSMENT/PLAN: 1. Encounter for long-term (current) use of non-steroidal anti-inflammatories - ICD9: V58.64, ICD10: Z79.1 Requesting refill on meloxicam - MELOXICAM 15 MG TABLET 2. Foraminal stenosis of cervical region - ICD9: 723.0, ICD10: M48.02 3. Numbness of fingers - ICD9: 782.0, ICD10: R20.0 4. DDD (degenerative disc disease), cervical - ICD9: 722.4, ICD10: M50.30 As patient to have neurosurgeon/pain management records of procedures and office notes if possible. 5 Acrochordon - ICD9: 701.9, ICD10: L91.8 (primary diagnosis) As above: Instructed patient to notify me if he has any bleeding, signs of infection or complications. Recommended follow-up in 6 months. Patient has appointment currently scheduled with Janay Main NP in June. Gildardo Moreno PA-C documented in this encounter [facility] 03-26-2022 Instructions Candida Moreno PA-C - 03/26/2022 2:37 PM EDT Gabapentin (Patient Education - Adult Medication) You must carefully read the Consumer Information Use and Disclaimer below in order to understand and correctly use this information Pronunciation (DIANNA ba aaron dial) Brand Names: USGralise; Gralise Starter; Neurontin Brand Names: [place]ACT Gabapentin [DSC]; AG-Gabapentin; APO-Gabapentin; Auro-Gabapentin; BCI Gabapentin [DSC]; BIO-Gabapentin; DOM-Gabapentin; GD-Gabapentin; GLN-Gabapentin; JAMP-Gabapentin; Mar-Gabapentin; MYLAN-Gabapentin [DSC]; Neurontin; PHL-Gabapentin [DSC]; PMS-Gabapentin; Priva-Gabapentin; PRO-Gabapentin; RAN-Gabapentin; SARITHA-Gabapentin; TARO-Gabapentin; TEVA-Gabapentin; VAN-Gabapentin [DSC] What is this drug used for? It is used to treat seizures. It is used to treat painful nerve diseases. It may be given to you for other reasons. Talk with the doctor. What do I need to tell my doctor BEFORE I take this drug? If you have an allergy to gabapentin or any other part of this drug. If you are allergic to any drugs like this one, any other drugs, foods, or other substances. Tell your doctor about the allergy and what signs you had, like rash; hives; itching; shortness of breath; wheezing; cough; swelling of face, lips, tongue, or throat; or any other signs. If you have kidney disease or are on dialysis. This is not a list of all drugs or health problems that interact with this drug. Tell your doctor and pharmacist about all of your drugs (prescription or OTC, natural products, vitamins) and health problems. You must check to make sure that it is safe for you to take this drug with all of your drugs and health problems. Do not start, stop, or change the dose of any drug without checking with your doctor. What are some things I need to know or do while I take this drug? Tell all of your health care providers that you take this drug. This includes your doctors, nurses, pharmacists, and dentists. Avoid driving and doing other tasks or actions that call for you to be alert until you see how this drug affects you. This drug may affect certain lab tests. Tell all of your health care providers and lab workers that you take this drug. Have blood work checked as you have been told by the doctor. Talk with the doctor. Talk with your doctor before you drink alcohol or use other drugs and natural products that slow your actions. This drug is not the same as gabapentin enacarbil (Horizant ). Do not use in its place. Talk with the doctor. A severe and sometimes deadly reaction has happened. Most of the time, this reaction has signs like fever, rash, or swollen glands with problems in body organs like the liver, kidney, blood, heart, muscles and joints, or lungs. If you have questions, talk with the doctor. Do not stop taking this drug all of a sudden without calling your doctor. You may have a greater risk of side effects. If you need to stop this drug, you will want to slowly stop it as ordered by your doctor. If you are 65 or older, use this drug with care. You could have more side effects. Use with care in children. Talk with the doctor. Tell your doctor if you are or plan on getting . You will need to talk about the benefits and risks of using this drug while you are . Tell your doctor if you are breast-feeding. You will need to talk about any risks to your baby. What are some side effects that I need to call my doctor about right away? WARNING/CAUTION: Even though it may be rare, some people may have very bad and sometimes deadly side effects when taking a drug. Tell your doctor or get medical help right away if you have any of the following signs or symptoms that may be related to a very bad side effect: Signs of an allergic reaction, like rash; hives; itching; red, swollen, blistered, or peeling skin with or without fever; wheezing; tightness in the chest or throat; trouble breathing, swallowing, or talking; unusual hoarseness; or swelling of the mouth, face, lips, tongue, or throat. Signs of liver problems like dark urine, feeling tired, not hungry, upset stomach or stomach pain, light-colored stools, throwing up, or yellow skin or eyes. Signs of kidney problems like unable to pass urine, change in how much urine is passed, blood in the urine, or a big weight gain. Trouble controlling body movements, twitching, change in balance, trouble swallowing or speaking. Memory problems or loss. Change in eyesight. Feeling confused. Shakiness. Shortness of breath, a big weight gain, or swelling in the arms or legs. Feeling very tired or weak. Not able to control eye movements. If seizures are worse or not the same after starting this drug. Any unexplained bruising or bleeding. Swollen gland. Fever or chills. Sore throat. Muscle pain or weakness. Not able to focus. Very bad dizziness or passing out. Patients who take this drug may be at a greater risk of having thoughts or actions of suicide. The risk may be greater in people who have had these thoughts or actions in the past. Call the doctor right away if signs like low mood (depression), nervousness, restlessness, grouchiness, panic attacks, or changes in mood or actions are new or worse. Call the doctor right away if any thoughts or actions of suicide occur. What are some other side effects of this drug? All drugs may cause side effects. However, many people have no side effects or only have minor side effects. Call your doctor or get medical help if any of these side effects or any other side effects bother you or do not go away: Dizziness. Feeling sleepy. Upset stomach or throwing up. Diarrhea. Dry mouth. Feeling tired or weak. These are not all of the side effects that may occur. If you have questions about side effects, call your doctor. Call your doctor for medical advice about side effects. You may report side effects to your national health agency. How is this drug best taken? Use this drug as ordered by your doctor. Read all information given to you. Follow all instructions closely. All products: Keep taking this drug as you have been told by your doctor or other health care provider, even if you feel well. To gain the most benefit, do not miss doses. If you are taking an antacid that has aluminum or magnesium in it, take this drug at least 2 hours after taking the antacid. Gralise: Take with the evening meal. Swallow whole. Do not chew, break, or crush. All other products: Take with or without food. Take with food if it causes an upset stomach. Capsules: Swallow whole with a full glass of water. Tablets: You may break the tablet in half. Do not chew or crush. If you break the tablet in half, use the other half of the tablet for the next dose, as told by the doctor. Throw away half-tablets not used within 28 days. Liquid (solution): Measure liquid doses carefully. Use the measuring device that comes with this drug. If there is none, ask the pharmacist for a device to measure this drug. What do I do if I miss a dose? Take a missed dose as soon as you think about it. If it is close to the time for your next dose, skip the missed dose and go back to your normal time. Do not take 2 doses at the same time or extra doses. How do I store and/or throw out this drug? Liquid (solution): Store in a refrigerator. Do not freeze. All other products: Store at room temperature. Store in a dry place. Do not store in a bathroom. All dose forms: Keep all drugs in a safe place. Keep all drugs out of the reach of children and pets. Throw away unused or drugs. Do not flush down a toilet or pour down a drain unless you are told to do so. Check with your pharmacist if you have questions about the best way to throw out drugs. There may be drug take-back programs in your area. General drug facts If your symptoms or health problems do not get better or if they become worse, call your doctor. Do not share your drugs with others and do not take anyone else's drugs. Keep a list of all your drugs (prescription, natural products, vitamins, OTC) with you. Give this list to your doctor. Talk with the doctor before starting any new drug, including prescription or OTC, natural products, or vitamins. Some drugs may have another patient information leaflet. If you have any questions about this drug, please talk with your doctor, nurse, pharmacist, or other health care provider. If you think there has been an overdose, call your poison control center or get medical care right away. Be ready to tell or show what was taken, how much, and when it happened. Last Reviewed Date 2018-01-17 documented in this encounter [facility] 03-26-2022 History of Presen t illness Narrative 56 year old male with c/o here for f/u on HTN, CP, left shoulder pain Stress test not scheduled until 06/04/22 PT hasn't helped. If rests on left elbow has pain in the elbow and radiates to 4-5th fingers and whole hand. Only sleeping a few hours a day. Notices pain trying to position elbow so it doesn't bother. 01/05/22 c-spine xr: Cervical spine degenerative changes with multilevel disc space narrowing and bilateral neural foraminal narrowing. HISTORIES FAMILY HISTORY Adopted: Yes PAST MEDICAL HISTORY Diagnosis Date Kidney stones PUD (peptic ulcer disease) diagnosed in [facility] early on UGI, EGD PAST SURGICAL HISTORY Procedure Laterality Date LAPS SURG CHOLECYSTECTOMY W/CHOLANGIOGRAPHY 08/14/2021 PAST SURGICAL HISTORY OF UNDESCENDED TESTICLE AT [facility] 1ST [facility] AGE 6 YRS/> REDUCIBLE 05/15/2011 Right Social History Tobacco Use Smoking status: Former Smoker Packs/day: 0.20 Years: 1.50 Pack years: 0.30 Types: Cigarettes Quit date: 11/11/2000 Years since quittin.3 Smokeless tobacco: Never Used Vaping Use Vaping Use: Never used Substance Use Topics Alcohol use: No Comment: quit 10 yrs ago Drug use: No ACTIVE PROBLEM LIST Mild Intermittent Asthma Without Complication Inguinal Hernia Chronic Right-Sided Low Back Pain With Right-Sided Sciatica Essential Hypertension, Benign Gerd (Gastroesophageal Reflux Disease) Class 2 Obesity Due to Excess Calories With Body Mass Index (Bmi) of 38.0 to 38.9 in Adult Calculus of Gallbladder With Cholecystitis Without Biliary Obstruction Screening for Hyperlipidemia Cervicalgia Numbness of Fingers Foraminal Stenosis of Cervical Region Ddd (Degenerative Disc Disease), Cervical Current Outpatient Medications Medication Sig Dispense Refill losartan-hydroCHLOROthiazide (HYZAAR) 100-12.5 mg per tablet Take 1 tablet by mouth once daily. 30 tablet 5 albuterol HFA (PROVENTIL HFA, VENTOLIN HFA) 90 mcg/actuation inhaler Inhale 2 Puffs as instructed every 4 hours as needed. 18 g 1 meloxicam (MOBIC) 15 mg tablet Take 1 tablet by mouth once daily. With food. 30 tablet 5 omeprazole (PRILOSEC) 20 mg capsule Take 1 capsule by mouth once daily. 30 capsule 5 fluticasone (FLONASE) 50 mcg/actuation nasal spray SPRAY 2 SPRAYS INTO EACH NOSTRIL EVERY DAY 18.2 mL 11 rosuvastatin (CRESTOR) 5 mg tablet Take 1 tablet by mouth daily at bedtime. 30 tablet 5 No current facility-administered medications for this visit. SPIROMETRY Never done BP CONTROLLED (<130/80) Never done SHINGRIX VACCINE(1 of 2) Never done DEPRESSION SCREENING due on 08/10/2020 COLORECTAL CANCER SCREENING due on 08/13/2020 PNEUMOCOCCAL(2 - PCV) due on 07/22/2021 PROSTATE CANCER SCREENING DISCUSSION due on 12/27/2021 EXAM: BP 148/82 Pulse 82 Temp 37.1 C (98.8 F) (Left Tympanic) Resp 16 Wt 109.4 kg (241 lb 3.2 oz) SpO2 96% BMI 36.14 kg/m Pleasant obese adult male in usual demeanor, in no acute distress. Alert and oriented all spheres. Normal affect and cognition. Speech normal. No deficits to learning or comprehension. Skin warm, dry, pink to lips and nailbeds. Normal turgor. Respirations regular and unlabored. Chest is normal shape. Lungs are clear to all heart with good air exchange through out. HRRR without murmur or gallop. No lifts, heaves, or rubs. Neck is supple, full range of motion. He does have pain with Spurling's test on the left radiating into the shoulder and arm. Also positive Tinel's sign in the left elbow radiating into fourth and fifth fingers and then general sense of discomfort Poiser strength is still full, as are, triceps and deltoid points. Extrem: no clubbing or cyanosis. Edema: none. Extremities are warm and pink with prompt capillary refill. ASSESSMENT/PLAN: 1. Primary hypertension - ICD9: 401.9, ICD10: I10 (primary diagnosis) - suboptimal control - Continue current medication(s) - Recommended regular aerobic exercise. - Recommend home blood pressure monitoring, to bring results in on next visit - Discussed need and benefit for weight loss. - Goal of BP <130/80 2. Hyperlipidemia, mixed - ICD9: 272.2, ICD10: E78.2 - good control - Continue current medication. - ROSUVASTATIN 5 MG TABLET 3. Foraminal stenosis of cervical region - ICD9: 723.0, ICD10: M48.02 - EMG(NEURO/NI) - GABAPENTIN 300 MG CAPSULE 4. Numbness of fingers - ICD9: 782.0, ICD10: R20.0 - EMG(NEURO/NI) - GABAPENTIN 300 MG CAPSULE 5. DDD (degenerative disc disease), cervical - ICD9: 722.4, ICD10: M50.30 Discussed options for pain management, Ortho referral, initiation of gabapentin. Patient is hesitant with the metformin options so we discussed EMG/NCT as testing that would likely help us identify which lesion is involved for future management. Educated on new medication, box warnings, common side effects, administration. - EMG(NEURO/NI) - GABAPENTIN 300 MG CAPSULE 6. Gastroesophageal reflux disease, unspecified whether esophagitis present - ICD9: 530.81, ICD10: K21.9 - Discussed lifestyle modifications including losing weight, limiting caffeine, no meals three hours before sleep and head of bed elevation 7. Mild intermittent asthma with acute exacerbation - ICD9: 493.92, ICD10: J45.21 Mild persistent Asthma stable - Avoidance of triggers recommended 8. Allergy, sequela - ICD9: 909.9, ICD10: T78.40XS refill - FLUTICASONE PROPIONATE 50 MCG/ACTUATION NASAL SPRAY,SUSPENSION F/u 4 weeks on gabapentin initiation and removal skin tag mid back. Candida Moreno PA-C documented in this encounter [facility] 02-14-2022 History of Presen t illness Narrative Episode Visit Count: 5 Therapist That Will Oversee The Plan Of Care: Bryant Villalobos Start of Care Date: 01/15/22 Onset Date: 10/16/21 Plan of Care Certification Date: 01/15/22 Next Certification Due Date: 03/17/22 [facility] PHYSICAL THERAPY DISCONTINUANCE OF CARE PLAN OF CARE UPDATE: Assessment: Deon Gregorio is discontinued from Physical Therapy services due to maximal benefit.. Patient was seen for 5 visits from Start of Care Date: 01/15/22 to 02/14/2022 and treatment included: Therapeutic exercise, Manual therapy and Self-retirement management. Patient has seen no change in symptoms since starting therapy. Due to lack of progress made patient will be referred back to his PCP. No specialty comments available. All goals for therapy not met SUBJECTIVE: Patient Reason for Visit: Pt had a miserable night. Kept waking up with pain and symptoms into the RUE, at times it went completely numb. Functional Limitations: heavy exertion;lifting;physical activities;recreational activities;reaching overhead;use hand with arm at shoulder level;reaching behind back;cleaning;cooking;gripping;p inching;sleeping Pain: Pain Pain Level: 8 Pain Location: Elbow - Left;Hand - Left;Arm - Left;Neck - Left Description: Shooting;Numbness Frequency: Continuous Post Treatment Pain Post Treatment Pain Level: No Change PROMIS Scales T-scores: mean of general population = 50. 5 points is clinically meaningfully difference Percentiles provide an indication of how the patient's score ranks in relation to the general population. Higher percentile rankings indicate better function/quality of life. 50th percentile is the average of the general population and indicates half of respondents had a worse score. T-scores: mean of general population = 50. 5 points is clinically meaningfully difference Percentiles provide an indication of how the patient's score ranks in relation to the general population. Higher percentile rankings indicate better function/quality of life. 50th percentile is the average of the general population and indicates half of respondents had a worse score. OBJECTIVE MEASURES WITH LEVEL OF FUNCTION: Special Tests - Cervical Cervical Special Tests: Cervical Compression Cervical Compression: Positive Cervical Distraction: Negative Spurling: Left Positive Median Nerve: Left Positive Ulnar Nerve: Left Positive Radial Nerve: Left Positive TREATMENT: Therapeutic Exercise: 1: *R cervical side bending 3x30 sec 2: *L levator stretch 3x30 sec 3: L forearm flexor stretch 3x30 sec 4: L pec minor stretch 3x30 sec 5: recheck Skilled Intervention: Patient was educated in proper exercise technique and purpose for exercises. Skilled judgment was provided in selection of appropriate interventions. Correct performance of therapeutic exercises was facilitated with verbal, visual and tactile cuing. Billing Therapeutic Exercise Treatment Minutes: 13 Total Treatment Time Minutes (timed/untimed): 13 Bryant Villalobos PT documented in this encounter [facility] 02-07-2022 History of Presen t illness Narrative Episode Visit Count: 4 Therapist That Will Oversee The Plan Of Care: Bryant Villalobos Start of Care Date: 01/15/22 Onset Date: 10/16/21 Plan of Care Certification Date: 01/15/22 Next Certification Due Date: 03/17/22 REHABILITATION AND SPORTS THERAPY PHYSICAL THERAPY TREATMENT NOTE ASSESSMENT: Deon Gregorio tolerated the session with decreased pain and expected muscle soreness. He demonstrated improvements in numbness in the hands during cervical traction. The patient will continue to benefit from ongoing skilled physical therapy to progress toward set goals. PLAN FOR NEXT VISIT: NC SUBJECTIVE: Patient Reason for Visit: Pt. saw Dr. Moreno yesterday with his checkup from previous ER visit. Pt. reveals he states Dr. Moreno said everything checks out okay . Pt. reports increased soreness today due to physical exam yesterday. Continues to have the same symptoms and decreased activity tolerance. Pain last night at work he states 9/10 on pain scale. Pain: Pain Pain Level: 7 Pain Location: Elbow - Left;Shoulder - Left Description: Shooting;Numbness Frequency: With movement Post Treatment Pain Post Treatment Pain Level: 2 Post Treatment Pain Location: Elbow - Left;Shoulder - Left Post Treatment Symptoms: No Numbness currently OBJECTIVE MEASURES WITH LEVEL OF FUNCTION: Patient did not tolerate trial of nerve flossing due to pain & stating feeling of tendons are going to rip when in complete extension. (ceased the activity). TREATMENT: Therapeutic Exercise: 1: L forearm flexor stretch - 3x30 2: L forearm extensor stretch - 3x30 4: Rows - Green TB 2x15 5: W's - Green TB 2x15 6: Lt. Pec Stretch Lower - 3x30 Skilled Intervention: Patient was educated in proper exercise technique and purpose for exercises. Skilled judgment was provided in selection of appropriate interventions. Correct performance of therapeutic exercises was facilitated with verbal, visual and tactile cuing. Manual Therapy: 1: Cervical Distraction w/ slight side bend to the Rt. x10 2: STM to L upper trap and levator with hands, push to pt. tolerance until symptoms subside. Skilled Intervention: Manual skills to improve joint mobility, ROM, and decrease pain. Utilized anatomy knowledge of the therapist, and assessment of patient's response to intervention. Billing Therapeutic Exercise Treatment Minutes: 15 Manual TherapyTreatment Minutes: 24 Total Treatment Time Minutes (timed/untimed): 39 Trevon Kim, MIRIAM Supervising therapist was present and guided the care of the patient for the entire session on this date. All documentation was reviewed and agreed upon. Bryant Villalobos PT documented in this encounter [facility] 02-06-2022 Nurse Note 1. 152/91 2. 144/93 3. 150/92 4. 145/94 5. 149/92 6. 134/89 documented in this encounter [facility] 02-06-2022 History of Presen t illness Narrative 56 year old male with c/o here for ER followup on chest pain 01/29/2022 presented [facility] emergency department with complaint of chest pain: 230a went to [facility], after developed bad chest pain lateral upper chest wall. Wouldn't go away. Curled up in a ball due to pain Sharp pain, 8-9/10. [place] a little dizzy. No SOB, dyspnea, orthopnea, racing or irregular heartbeats, palpitations, syncope, nausea, diaphoresis or heartburn. Drove himself to ER Intake and ER identifies sudden pain at sleep, continuous, left chest, mild in severity to moderate, negative for associated symptoms. On arrival:4 baby aspirin and NTG 0.4mg twice with relief. Exam: Vital signs 97.5 F-80-14-169/111-99% RA. Blood pressure came down to 131/88 on discharge. Exam indicates essentially normal except mildly tender left chest wall without crepitus or palpable mass. CBC WNL CMP: WNL except potassium 3.3. Troponin 1 WNL x2, initially 6, second 5. Chest x-ray: No acute findings in the chest. EKG: Normal sinus rhythm with no injury pattern. Patient was given option for overnight admission and stress testing but decided to go home. Patient had no similar symptoms since discharge. Has pain in right shoulder to elbow Elbow brace, copper sleeve, Biofreeze. Currently in physical therapy related to above complaints, possible cervical radiculitis with numbness in fingers. HISTORIES FAMILY HISTORY Adopted: Yes PAST MEDICAL HISTORY Diagnosis Date Kidney stones PUD (peptic ulcer disease) diagnosed in [facility] [place] UGI, EGD PAST SURGICAL HISTORY Procedure Laterality Date LAPS SURG CHOLECYSTECTOMY W/CHOLANGIOGRAPHY 08/14/2021 PAST SURGICAL HISTORY OF UNDESCENDED TESTICLE AT [facility] AGE 6 YRS/> REDUCIBLE 05/15/2011 Right Social History Tobacco Use Smoking status: Former Smoker Packs/day: 0.20 Years: 1.50 Pack years: 0.30 Types: Cigarettes Quit date: 11/11/2000 Years since quittin.2 Smokeless tobacco: Never Used Vaping Use Vaping Use: Never used Substance Use Topics Alcohol use: No Comment: quit 10 yrs ago Drug use: No ACTIVE PROBLEM LIST Mild Intermittent Asthma Without Complication Inguinal Hernia Chronic Right-Sided Low Back Pain With Right-Sided Sciatica Essential Hypertension, Benign Gerd (Gastroesophageal Reflux Disease) Class 2 Obesity Due to Excess Calories With Body Mass Index (Bmi) of 38.0 to 38.9 in Adult Calculus of Gallbladder With Cholecystitis Without Biliary Obstruction Screening for Hyperlipidemia Cervicalgia Numbness of Fingers Foraminal Stenosis of Cervical Region Ddd (Degenerative Disc Disease), Cervical Current Outpatient Medications Medication Sig Dispense Refill losartan-hydroCHLOROthiazide (HYZAAR) 50-12.5 mg per tablet Take 1 tablet by mouth once daily. 30 tablet 2 albuterol HFA (PROVENTIL HFA, VENTOLIN HFA) 90 mcg/actuation inhaler Inhale 2 Puffs as instructed every 4 hours as needed. 18 g 1 meloxicam (MOBIC) 15 mg tablet Take 1 tablet by mouth once daily. With food. 30 tablet 5 omeprazole (PRILOSEC) 20 mg capsule Take 1 capsule by mouth once daily. 30 capsule 5 fluticasone (FLONASE) 50 mcg/actuation nasal spray SPRAY 2 SPRAYS INTO EACH NOSTRIL EVERY DAY 18.2 mL 11 rosuvastatin (CRESTOR) 5 mg tablet Take 1 tablet by mouth daily at bedtime. 30 tablet 5 No current facility-administered medications for this visit. SPIROMETRY Never done BP CONTROLLED (<130/80) Never done SHINGRIX VACCINE(1 of 2) Never done DEPRESSION SCREENING due on 08/10/2020 COLORECTAL CANCER SCREENING due on 08/13/2020 PROSTATE CANCER SCREENING DISCUSSION due on 12/27/2021 EXAM: BP 150/87 Pulse 77 Resp 20 Wt 108.9 kg (240 lb) SpO2 98% BMI 35.96 kg/m Last 14 BP Last 14 Encounter BP Readings: Date: BP: 02/06/2022 144/92[BP TRUE AVERAGE[ 01/05/2022 142/84 11/20/2021 150/90 11/01/2021 151/80[BP Frank average[ 10/04/2021 152/94 09/11/2021 152/88 08/30/2021 138/88 08/22/2021 156/82 08/14/2021 158/103 08/11/2021 166/101 08/02/2021 168/104 07/12/2021 139/69 07/11/2021 170/98 06/28/2021 171/93[FRANK BP[7 Pleasant obese adult male in no acute distress. Alert and oriented all spheres. Normal affect and cognition. Speech normal. No deficits to learning or comprehension. Skin warm, dry, pink to lips and nailbeds. Normal turgor. Respirations regular and unlabored. HEENT: NCAT. No scleral icterus or conjunctival injection. TM's clear. Nose and oropharynx free from injection or lesion. Oral membranes moist and pink. No cervical lymph nodes. Thyroid non-tender, no masses, or enlargement. Carotids pulses 2+/4+ without bruits. No JVD with HOB at 30 degrees. Chest is normal shape. Lungs are clear to all heart with good air exchange through out. HRRR without murmur or gallop. No lifts, heaves, or rubs. Extrem: no clubbing, cyanosis, edema. Distal pulses 2+/4, prompt capillary refill. Continues to complain of pain with elevating arm above shoulder level on the left also with internal rotation extension. Drop arm test is negative. Tender trigger points anterior and posterior chest/shoulder muscle points. ASSESSMENT/PLAN: 1. Other chest pain - ICD9: 786.59, ICD10: R07.89 (primary diagnosis) Chest pain of unclear etiology, patient with significant risk factor(s) of family history of early coronary heart disease, Hypertension and Hyperlipidemia - Stress testing- see orders - BASIC METABOLIC PNL - EXERCISE STRESS ECG (WITHOUT IMAGING) 2. Acute pain of left shoulder - ICD9: 719.41, ICD10: M25.512 OMT provided with partial relief 3. Primary hypertension - ICD9: 401.9, ICD10: I10 - suboptimal control - Increase to Hytrin 100-25mg daily, recheck BP in 4 weeks. - Encouraged dietary sodium restriction/DASH diet - Recommended regular aerobic exercise. - Recommend home blood pressure monitoring, to bring results in on next visit - Discussed need and benefit for weight loss. - Follow up in 1 month for BP recheck. - Goal of BP <130/80 4. Hyperlipidemia, mixed - ICD9: 272.2, ICD10: E78.2 Needs to complete outstanding lab Candida Moreno PA-C documented in this encounter [facility] 01-31-2022 History of Presen t illness Narrative Episode Visit Count: 3 Therapist That Will Oversee The Plan Of Care: Bryant Villalobos Start of Care Date: 01/15/22 Onset Date: 10/16/21 Plan of Care Certification Date: 01/15/22 Next Certification Due Date: 03/17/22 REHABILITATION AND SPORTS THERAPY PHYSICAL THERAPY TREATMENT NOTE ASSESSMENT: Deon Gregorio tolerated the session with decreased activity tolerance due to increased L elbow & shoulder pain & inconsistent reproduction of symptoms when trialing new interventions as well as expected muscle soreness. He demonstrated improvements in L tissue tenderness of the Lt. Upper trap after STM. The patient will continue to benefit from ongoing skilled physical therapy to progress toward set goals. PLAN FOR NEXT VISIT: NC -- Trial nerve gliding again. SUBJECTIVE: Patient Reason for Visit: Pt. arrives to session reporting that he has stopped using his compression sleeve and the numbness and tingling has decreased in his elbow since. The numbness and sharp tingling pain is still elbow, and numbness in his hands. Reports shoulder has been worse recently. Pt. went to ER on Saturday complaing of chest pains, EKG and blood work came back normal. Pain: Pain Pain Level: 6 Pain Location: Elbow - Left;Shoulder - Left Description: Shooting;Numbness Frequency: With movement Post Treatment Pain Post Treatment Pain Level: 4 Post Treatment Pain Location: Elbow - Left;Shoulder - Left Post Treatment Pain Description: Numbness OBJECTIVE MEASURES WITH LEVEL OF FUNCTION: Palpation to Lt. Upper trap and levator scapulae revealed tenderness and trigger points. TREATMENT: Therapeutic Exercise: 1: L forearm flexor stretch - 3x30 2: L upper trap stretch 3x30 sec 3: Scapular Retractions - 2x10 4: Rows - Green TB 2x12 5: W's - Green TB 2x12 6: Lt. Pec Stretch Lower - 3x30 Skilled Intervention: Patient was educated in proper exercise technique and purpose for exercises. Skilled judgment was provided in selection of appropriate interventions. Correct performance of therapeutic exercises was facilitated with verbal, visual and tactile cuing. Manual Therapy: 1: Cervical Distraction w/ slight side bend to the Rt. x8 2: STM to L upper trap and levator with hands, push to pt. tolerance until symptoms subside. Skilled Intervention: Manual skills to improve joint mobility, ROM, and decrease pain. Utilized anatomy knowledge of the therapist, and assessment of patient's response to intervention. Billing Therapeutic Exercise Treatment Minutes: 18 Manual TherapyTreatment Minutes: 14 Total Treatment Time Minutes (timed/untimed): 32 MIRIAM Hoyt Supervising therapist was present and guided the care of the patient for the entire session on this date. All documentation was reviewed and agreed upon. Bryant Villalobos PT documented in this encounter [facility] 01-26-2022 History of Presen t illness Narrative Episode Visit Count: 2 Therapist That Will Oversee The Plan Of Care: Bryant Villalobos Start of Care Date: 01/15/22 Onset Date: 10/16/21 Plan of Care Certification Date: 01/15/22 Next Certification Due Date: 03/17/22 REHABILITATION AND SPORTS THERAPY PHYSICAL THERAPY TREATMENT NOTE ASSESSMENT: Deon Gregorio tolerated the session with decreased activity tolerance due to increased symptoms and inability to try certain interventions and decreased pain during traction. He demonstrated improvements in decreased 4th and 5th finger numbness lasting longer following traction. The patient will continue to benefit from ongoing skilled physical therapy to progress toward set goals. PLAN FOR NEXT VISIT: Continue cervical distraction, Find and progress intervention per pt. tolerance. SUBJECTIVE: Patient Reason for Visit: Pt. arrives to session complaining symptoms has been miserable. Reports elbow numbness and tingling symptoms. Has tried different topical over the counter creams without relief. Bought a elbow brace and elbow compression sleeve to releive pain, elbow sleeve seems to somewhat help with pain. Semi-compliance with HEP due to symptoms. Pain: Pain Pain Level: 7 Pain Location: Elbow - Left;Shoulder - Left Description: Shooting;Numbness Frequency: With movement Post Treatment Pain Post Treatment Pain Level: 6 Post Treatment Pain Location: Elbow - Left;Shoulder - Left OBJECTIVE MEASURES WITH LEVEL OF FUNCTION: Centralization of numbness and tingling following traction. Increased irritability w/ nerve gliders and tensioner's. TREATMENT: Therapeutic Exercise: 1: Levator stretch 3x30 sec to R only 2: L upper trap stretch 3x30 sec 3: Scapular Retractions 4: Rows - Green TB 2x10 5: W's - Green TB 2x10 6: Lt. Pec Stretch Lower - 3x30 Skilled Intervention: Patient was educated in proper exercise technique and purpose for exercises. Reviewed and educated patient on additions/changes for home exercise program as above (*). Skilled judgment was provided in selection of appropriate interventions. Provided written instruction for home exercise program to facilitate proper performance and compliance. Correct performance of therapeutic exercises was facilitated with verbal, visual and tactile cuing. Manual Therapy: 1: Cervical Distraction w/ slight side bend to the Rt. x10 minutes Skilled Intervention: Manual skills to improve joint mobility, ROM, and decrease pain. Utilized anatomy knowledge of the therapist, and assessment of patient's response to intervention. Billing Therapeutic Exercise Treatment Minutes: 31 Manual TherapyTreatment Minutes: 10 Total Treatment Time Minutes (timed/untimed): 41 MIRIAM Hoyt Supervising therapist was present and guided the care of the patient for the entire session on this date. All documentation was reviewed and agreed upon. Bryant Villalobos PT documented in this encounter [facility] 01-15-2022 History of Presen t illness Narrative Episode Visit Count: 1 Therapist That Will Oversee The Plan Of Care: Bryant Villalobos Start of Care Date: 01/15/22 Onset Date: 10/16/21 Plan of Care Certification Date: 01/15/22 Next Certification Due Date: 03/17/22 Patient Identified by Name and Date of : Yes REHABILITATION AND SPORTS THERAPY PHYSICAL THERAPY EVALUATION PLAN OF CARE: Assessment: Deon Gregorio presents with chief complaint of left sided neck pain and radicular symptoms into the 4th and 5th digits. This interferes with heavy exertion;lifting;physical activities;recreational activities;reaching overhead;use hand with arm at shoulder level;reaching behind back;cleaning;cooking;gripping;p inching;sleeping . He presents with impairments in ADL's, joint mobility, ROM, and overall function. PROMIS (Patient-Reported Outcomes Measurement Information System) scores were reviewed and physical function domain, social roles domain and self efficacy domain identified as a rehabilitation concern. Prognosis for therapy is Fair due to: clinical presentation;coping skills;limited tolerance to activity;limited support system. He will benefit from skilled therapy services to meet the goals established for this plan of care as noted below. Goals for Episode of Care: created on 01/15/22 through 03/17/22 [place] in home exercise program. Patient will decrease pain rating by 2 points to meet minimal clinical important difference for numeric pain rating scale. Restore pain free cervical and shoulder ROM. Increase strength to 5/5 in Lt. UE. Myotome cervical & shoulder. Sleep throughout the night without pain/symptoms. Maintain proper sitting posture throughout the session to allow for decreased symptoms provocation. Patient will increase self-management of symptoms. Patient Goals: Working without pain. Sleeping throughout the night. Planned Interventions, Frequency, and Duration: Current Frequency: 1x/week Duration: 4 weeks Total Number of Visits Planned: 4 Planned Treatment Interventions: Therapeutic exercise (20236);Neuromuscular re-education (31704);Manual therapy (57849);Therapeutic activities (76581);Self-retirement management (09352);Patient/Family/Caregiver Education;Body Mechanics Training PLAN FOR NEXT VISIT: Continue with cervical distraction w/ slight bend to the Rt. Trial interventions to releive symptoms and educate on self-management of symptoms. Patient demonstrates good understanding of plan of care and treatment. The above goals and plan of care were discussed and agreed upon by patient/family. SUBJECTIVE: Deon Gregorio is a 56 year old male seen today for Pt. arrives to session complaining of Lt. arm numbness and tingling that radiates down to the 4th and 5th finger. Reports shoveling snow in October with a delayed onset of pain coming about a couple weeks later. Symptoms have been the same the last couple of months without progression. States pain does not allow him to sleep throughout the night, and awakes him. 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 Patient Goals: Working without pain. Sleeping throughout the night. 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 Assistance Available: None Intake Information: Prescription present Previous Treatment: None Spine History Sleeping Position: Side lying right;Side lying left Sleep Affected by Pain: Pain keeps from falling asleep;Pain awakens Pain: Pain Pain Level: 9 Pain Location: Shoulder - Left;Scapula - Left;Upper Arm - Left;Elbow - Left;Arm - Left;Wrist - Left;Hand - Left;Finger - Left Description: Shooting;Numbness Frequency: Continuous Post Treatment Pain Post Treatment Pain Level: No Change Post Treatment Pain Location: Arm - Right Post Treatment Pain Description: Numbness;Shooting Post Treatment Symptoms: Returned following traction. PROMIS Scales T-scores: mean of general population = 50. 5 points is clinically meaningfully difference Percentiles provide an indication of how the patient's score ranks in relation to the general population. Higher percentile rankings indicate better function/quality of life. 50th percentile is the average of the general population and indicates half of respondents had a worse score. T-scores: mean of general population = 50. 5 points is clinically meaningfully difference Percentiles provide an indication of how the patient's score ranks in relation to the general population. Higher percentile rankings indicate better function/quality of life. 50th percentile is the average of the general population and indicates half of respondents had a worse score. OBJECTIVE MEASURES WITH LEVEL OF FUNCTION: Numbness and tingling in the Lt arm to the fingers decreased and disappeared during traction. UE and Cervical Strength Strength Tested: Myotome Cervical/Shoulder R Shoulder Shrug (C4): 5/5 R Shoulder Abduction (C5): 5/5 R Elbow Extension (C7): 5/5 R Elbow Flexion (C6): 5/5 R Thumb Extension (C8): 5/5 R Finger Adduction/Interossei (T1): 5/5 L Shoulder Shrug (C4): 5/5 L Shoulder Abduction (C5): 5/5 L Elbow Extension (C7): 5/5 L Elbow Flexion (C6): 5/5 L Thumb Extension (C8): 4+/5 L Finger Adduction/Interossei (T1): 4/5 Special Tests - Cervical Cervical Special Tests: Spurling;Median Nerve;Ulnar Nerve;Radial Nerve;Cervical Distraction Spurling: Left Positive Median Nerve: Left Positive Ulnar Nerve: Left Positive Radial Nerve: Left Positive Education: Education Learning/educational needs: Home exercise program;Plan of Care;Changes in Plan of Care;Posture;Body Mechanics TREATMENT: PT Treatment Interventions: Self-Retirement Management;Manual Therapy Evaluation Therapeutic Exercise: 1: * Levator stretch 3x30 sec to R only 2: *L upper trap stretch 3x30 sec 3: * Cervical Retraction 3x10 (cued for tolerated range) Skilled Intervention: Patient was educated in proper exercise technique and purpose for exercises. Reviewed and educated patient on additions for home exercise program as above (*). Skilled judgment was provided in selection of appropriate interventions. Provided written instruction for home exercise program to facilitate proper performance and compliance. Correct performance of therapeutic exercises was facilitated with verbal, visual and tactile cuing. Self-Retirement Management: 1: Long discussion of anatomy and xray findings of decreased lateral foraminal space of the Lt. and how certain movements close off that space and lead to increased symptom provacation - Education on HEP, traction home supplies and implentmentation, POC, diagnosis. Skilled Intervention: Skilled judgment in the selection of proper modification for activity of daily living/home management based on clinical presentation, deficits, and needs. Educated the patient regarding recommendations and provided written instruction to facilitate compliance. Patient education on implementation of cervical distraction as a home exercise. Educated on buying options or other home setup materials he could use. Billing * Evaluation Low Complexity: 1 Unit Therapeutic Exercise Treatment Minutes: 10 Manual TherapyTreatment Minutes: 5 Self-Care/Home Management Treatment Minutes: 15 Total Treatment Time Minutes (timed and untimed codes) : 45 MIRIAM Hoyt Supervising therapist was present and guided the care of the patient for the entire session on this date. All documentation was reviewed and agreed upon. Bryant Villalobos, PT documented in this encounter [facility] 01-08-2022 Miscellaneous Notes Summary: PT Scheduled PT on 01/15/22 at 11:30 AM for physical therapy. Pt notified and verbalized understanding. Please assist with scheduling PT Kimber Rogers Ma Please advise cervical XR shows moderate spurring, disc space narrowing, multiple level narrowing in nerve canals from arthritis. I would recommend starting with PT and consider pain management consult if persistent. Telephone on 01/05/22 CONSULT TO PHYSICAL THERAPY Cervicalgia (primary encounter diagnosis) Numbness of fingers Foraminal stenosis of cervical region Ddd (degenerative disc disease), cervical Thanks, Gildardo Moreno PA-C documented in this encounter [facility] 01-05-2022 History of Presen t illness Narrative 56 year old male with c/o here for follow up. Primary hypertension (primary encounter diagnosis) HTN: Current meds: Losartan 50mg daily Patient is compliant with meds No Monitors bp at home: No. If yes, readings: Denies side effects: No. Chest pain: No. Dyspnea: No. Edema: No. Palpitations: No. Syncope: No. Headache: No. Dizziness: No. Last 3 Encounter BP Readings: Date: BP: 01/05/2022 142/84 11/20/2021 150/90 11/01/2021 151/80[BP Frank average[ Last 2 Encounter Wt Readings: Date: Wt: 01/05/2022 109.8 kg (242 lb) 11/20/2021 109.8 kg (242 lb) Hyperlipidemia: Current medication Rosuvastatin 5mg daily HS Taking medication consistently No Observing low cholesterol high fiber diet a little- eats fast food 2-3 times a week. Tries to avoid a lot of red meat. Muscle aches No Stomach complaints/ diarrhea No Last 2 Lipids: Component Latest Ref Rng & Units 03/06/2019 08/30/2021 Cholesterol, Total <200 mg/dL 172 206 (H) Triglyceride <150 mg/dL 83 85 HDL Cholesterol >39 mg/dL 43 40 LDL Cholesterol <100 mg/dL 112 (H) 149 (H) Non HDL Cholesterol <130 mg/dL 129 166 (H) Fasting Time hrs 15 12 VLDL Cholesterol <30 mg/dL 17 17 TC:HDL Ratio <5.10 4.00 5.15 (H) LDL:HDL Ratio <2.54 2.60 (H) 3.73 (H) Calculus of gallbladder without cholecystitis without obstruction Gastroesophageal reflux disease, unspecified whether esophagitis present S/p lap choly: feeling better. Appetite is good. No further pain., Current medication: Omeprazole 20mg only as needed, maybe 1-2/ week. Current symptoms: occasional sx if eats wrong. Last Mg level if on PPI chronically: n/a. Last EGD: none. Heartburn is controlled: Yes. Bloody or black stools: No. Bowel changes: No. Notes pain since November in left shoulder after shoveling snow radiating down back or arm and into pinkie. Makes fingers and palm itch. HISTORIES FAMILY HISTORY Adopted: Yes PAST MEDICAL HISTORY Diagnosis Date Kidney stones PUD (peptic ulcer disease) diagnosed in [facility] [place] UGI, EGD PAST SURGICAL HISTORY Procedure Laterality Date LAPS SURG CHOLECYSTECTOMY W/CHOLANGIOGRAPHY 08/14/2021 PAST SURGICAL HISTORY OF UNDESCENDED TESTICLE AT [facility] AGE 6 YRS/> REDUCIBLE 05/15/2011 Right Social History Tobacco Use Smoking status: Former Smoker Packs/day: 0.20 Years: 1.50 Pack years: 0.30 Types: Cigarettes Quit date: 11/11/2000 Years since quittin.1 Smokeless tobacco: Never Used Vaping Use Vaping Use: Never used Substance Use Topics Alcohol use: No Comment: quit 10 yrs ago Drug use: No ACTIVE PROBLEM LIST Mild Intermittent Asthma Without Complication Inguinal Hernia Chronic Right-Sided Low Back Pain With Right-Sided Sciatica Essential Hypertension, Benign Gerd (Gastroesophageal Reflux Disease) Class 2 Obesity Due to Excess Calories With Body Mass Index (Bmi) of 38.0 to 38.9 in Adult Calculus of Gallbladder With Cholecystitis Without Biliary Obstruction Screening for Hyperlipidemia Current Outpatient Medications Medication Sig Dispense Refill losartan (COZAAR) 50 mg tablet Take 1 tablet by mouth once daily. 90 tablet 1 albuterol HFA (PROVENTIL HFA, VENTOLIN HFA) 90 mcg/actuation inhaler Inhale 2 Puffs as instructed every 4 hours as needed. 18 g 1 meloxicam (MOBIC) 15 mg tablet Take 1 tablet by mouth once daily. With food. 30 tablet 5 omeprazole (PRILOSEC) 20 mg capsule Take 1 capsule by mouth once daily. 30 capsule 5 fluticasone (FLONASE) 50 mcg/actuation nasal spray SPRAY 2 SPRAYS INTO EACH NOSTRIL EVERY DAY 18.2 mL 11 rosuvastatin (CRESTOR) 5 mg tablet Take 1 tablet by mouth daily at bedtime. 30 tablet 5 No current facility-administered medications for this visit. SPIROMETRY Never done BP CONTROLLED (<130/80) Never done SHINGRIX VACCINE(1 of 2) Never done DEPRESSION SCREENING due on 08/10/2020 COLORECTAL CANCER SCREENING due on 08/13/2020 PROSTATE CANCER SCREENING DISCUSSION due on 12/27/2021 Last 14 BP Last 14 Encounter BP Readings: Date: BP: 01/05/2022 142/84 11/20/2021 150/90 11/01/2021 151/80[BP Frank average[ 10/04/2021 152/94 09/11/2021 152/88 08/30/2021 138/88 08/22/2021 156/82 08/14/2021 158/103 08/11/2021 166/101 08/02/2021 168/104 07/12/2021 139/69 07/11/2021 170/98 06/28/2021 171/93[FRANK BP[ 07/22/2020 132/84 EXAM: BP 142/84 Pulse 86 Resp 20 Wt 109.8 kg (242 lb) SpO2 98% BMI 36.26 kg/m Pleasant overweight adult man in no acute distress. Alert and oriented all spheres. Normal affect and cognition. Speech normal. No deficits to learning or comprehension. Skin warm, dry, pink to lips and nailbeds. Normal turgor. Respirations regular and unlabored. HEENT: NCAT. No scleral icterus or conjunctival injection. TM's clear. Nose and oropharynx free from injection or lesion. Oral membranes moist and pink. No cervical lymph nodes. Thyroid non-tender, no masses, or enlargement. Carotids pulses 2+/4+ without bruits. No JVD with HOB at 30 degrees. Chest is normal shape. Lungs are clear to all heart with good air exchange through out. HRRR without murmur or gallop. No lifts, heaves, or rubs. Extrem: no clubbing or cyanosis. Edema: none. Extremities are warm and pink with prompt capillary refill. ASSESSMENT/PLAN: 1. Primary hypertension - ICD9: 401.9, ICD10: I10 (primary diagnosis) - suboptimal control - Continue current medication(s) - Encouraged dietary sodium restriction/DASH diet - Recommended regular aerobic exercise. - Recommend home blood pressure monitoring, to bring results in on next visit - Goal of BP <130/80 - COMP METABOLIC PANEL 2. Hyperlipidemia, mixed - ICD9: 272.2, ICD10: E78.2 - suboptimal control - Continue current medication. - Encouraged following a low fat, low cholesterol diet. - Discussed the benefits of regular aerobic exercise and weight loss. - Encouraged following a low carbohydrate, healthy oil intake diet. - Continue current therapy. - LIPID PANEL BASIC - COMP METABOLIC PANEL - CK CREATINE KINASE 3. Calculus of gallbladder without cholecystitis without obstruction - ICD9: 574.20, ICD10: K80.20 S/p choly 4. Gastroesophageal reflux disease, unspecified whether esophagitis present - ICD9: 530.81, ICD10: K21.9 - Discussed lifestyle modifications including losing weight, limiting caffeine, no meals three hours before sleep and head of bed elevation - COMP METABOLIC PANEL 5. Cervicalgia - ICD9: 723.1, ICD10: M54.2 ? Cervical radiculitis. Possible from over use. No indication CTS. - XR CERV OTHER 4V AP/LAT/OBL 6. Numbness of fingers - ICD9: 782.0, ICD10: R20.0 Discussed EMG/ NCS if not improving. - XR CERV OTHER 4V AP/LAT/OBL Candida Moreno PA-C documented in this encounter [facility] 08-14-2021 Note HNO ID: [id number] Author: Santa Rebollar APRN.911 DISPATCHER Service: Anesthesiology Author Type: Nurse Propulsion Systems Engineer Type: Anesthesia Procedure Notes Filed: 08/14/2021 9:18 AM Note Text: ANESTHESIOLOGY PROCEDURE NOTE Airway General Information Procedure Start Time/Medication Administration: 08/14/2021 9:10 AM Patient location during procedure: OR Patient identity confirmed: arm band, care production team manager and patient Staffing Anesthesiologist: José Miguel Betancur MD 911 DISPATCHER: Santa Rebollar APRN.911 DISPATCHER Other anesthesia staff/rotator: Santa Rebollar APRN.911 DISPATCHER Performed by: 911 DISPATCHER Indications and Patient Condition Preoxygenated: yes Patient position: sniffing Manual In-Line Stabilization: No Difficult Mask: No Indications for airway management: anesthesia anesthesia circuit Method: asleep Cricoid Pressure: No Airway Accessory: oral airway (#4) Final Airway Details Final airway type: endotracheal airway Final Endotracheal Airway: ETT Cuffed: yes Successful intubation technique: video laryngoscopy Devices used: intubating stylet and Toscano (elective Toscano x 1) Endotracheal tube insertion site: oral Blade size: #4 ETT size (mm): 7.5 Measured from: lips Measurement (cm): 22 Placement verified by: chest auscultation and capnometry Cormack-Lehane Classification: grade I - full view of glottis Number of attempts at approach: 1 Failed airway: no Unrecognized esophageal intubation: no Airway not difficult Comments Lips/teeth in preanesthetic condition SIGNATURE: Santa Rebollar APRN.CRNA PATIENT NAME: Deon Gregorio DATE: August 14, 2021 TIME: 9:17 AM CSN: [id number] [facility] documented as of this encounter (statuses as of 01/05/2022) [address] History of Past illness Narrative* Problem Noted Date Resolved Date Acute bronchitis 01/21/2006 01/14/2017 documented as of this encounter (statuses as of 01/08/2022) [address] History of Past illness Narrative* Problem Noted Date Resolved Date Acute bronchitis 01/21/2006 01/14/2017 documented as of this encounter (statuses as of 01/16/2022) [address] History of Past illness Narrative* Problem Noted Date Resolved Date Acute bronchitis 01/21/2006 01/14/2017 documented as of this encounter (statuses as of 01/26/2022) [address] History of Past illness Narrative* Problem Noted Date Resolved Date Acute bronchitis 01/21/2006 01/14/2017 documented as of this encounter (statuses as of 02/01/2022) [address] History of Past illness Narrative* Problem Noted Date Resolved Date Acute bronchitis 01/21/2006 01/14/2017 documented as of this encounter (statuses as of 02/06/2022) [address] History of Past illness Narrative* Problem Noted Date Resolved Date Acute bronchitis 01/21/2006 01/14/2017 documented as of this encounter (statuses as of 02/08/2022) [address] History of Past illness Narrative* Problem Noted Date Resolved Date Acute bronchitis 01/21/2006 01/14/2017 documented as of this encounter (statuses as of 02/14/2022) [address] History of Past illness Narrative* Problem Noted Date Resolved Date Acute bronchitis 01/21/2006 01/14/2017 documented as of this encounter (statuses as of 03/26/2022) [address] History of Past illness Narrative* Problem Noted Date Resolved Date Acute bronchitis 01/21/2006 01/14/2017 documented as of this encounter (statuses as of 04/24/2022) [address] History of Past illness Narrative* Problem Noted Date Resolved Date Acute bronchitis 01/21/2006 01/14/2017 documented as of this encounter (statuses as of 07/18/2022) [address] History of Past illness Narrative* Problem Noted Date Resolved Date Acute bronchitis 01/21/2006 01/14/2017 documented as of this encounter (statuses as of 07/18/2022) [address] History of Past illness Narrative* Problem Noted Date Resolved Date Acute bronchitis 01/21/2006 01/14/2017 documented as of this encounter (statuses as of 09/13/2022) [address] History of Past illness Narrative* Problem Noted Date Resolved Date Acute bronchitis 01/21/2006 01/14/2017 documented as of this encounter (statuses as of 11/30/2022) [address] History of Past illness Narrative* Problem Noted Date Resolved Date Acute bronchitis 01/21/2006 01/14/2017 documented as of this encounter (statuses as of 01/17/2023) [address] History of Past illness Narrative* Problem Noted Date Resolved Date Acute bronchitis 01/21/2006 01/14/2017 documented as of this encounter (statuses as of 01/21/2023) [address] History of Past illness Narrative* Problem Noted Date Resolved Date Acute bronchitis 01/21/2006 01/14/2017 documented as of this encounter (statuses as of 01/25/2023) [address] History of Past illness Narrative* Problem Noted Date Resolved Date Acute bronchitis 01/21/2006 01/14/2017 documented as of this encounter (statuses as of 02/06/2023) [address] History of Past illness Narrative* Problem Noted Date Resolved Date Acute bronchitis 01/21/2006 01/14/2017 documented as of this encounter (statuses as of 03/20/2023) [address] History of Past illness Narrative* Problem Noted Date Resolved Date Acute bronchitis 01/21/2006 01/14/2017 documented as of this encounter (statuses as of 04/19/2023) [address] History of Past illness Narrative* Problem Noted Date Resolved Date Acute bronchitis 01/21/2006 01/14/2017 documented as of this encounter (statuses as of 04/19/2023) [address] History of Past illness Narrative* Problem Noted Date Diagnosed Date Resolved Date Acute bronchitis 01/21/2006 01/14/2017 documented as of this encounter (statuses as of 06/13/2023) [address] History of Past illness Narrative* Problem Noted Date Diagnosed Date Resolved Date Acute bronchitis 01/21/2006 01/14/2017 documented as of this encounter (statuses as of 06/14/2023) [address] History of Past illness Narrative* Problem Noted Date Diagnosed Date Resolved Date Acute bronchitis 01/21/2006 01/14/2017 documented as of this encounter (statuses as of 06/20/2023) [address] History of Past illness Narrative* Problem Noted Date Diagnosed Date Resolved Date Acute bronchitis 01/21/2006 01/14/2017 documented as of this encounter (statuses as of 07/26/2023) [address] History of Past illness Narrative* Problem Noted Date Diagnosed Date Resolved Date Acute bronchitis 01/21/2006 01/14/2017 documented as of this encounter (statuses as of 08/18/2023) [address] History of Past illness Narrative* Problem Noted Date Diagnosed Date Resolved Date Acute bronchitis 01/21/2006 01/14/2017 documented as of this encounter (statuses as of 08/18/2023) [address] History of Past illness Narrative* Problem Noted Date Diagnosed Date Resolved Date Acute bronchitis 01/21/2006 01/14/2017 documented as of this encounter (statuses as of 08/18/2023) [address] History of Past illness Narrative* Problem Noted Date Diagnosed Date Resolved Date Acute bronchitis 01/21/2006 01/14/2017 documented as of this encounter (statuses as of 12/16/2023) [facility] Diagnosis Primary hypertension- Primary Unspecified essential hypertension Hyperlipidemia, mixed Mixed hyperlipidemia Calculus of gallbladder without cholecystitis without obstruction Calculus of gallbladder without mention of cholecystitis or obstruction Gastroesophageal reflux disease, unspecified whether esophagitis present Cervicalgia Numbness of fingers Disturbance of skin sensation [facility] Cervicalgia- Primary Numbness of fingers Disturbance of skin sensation Foraminal stenosis of cervical region Spinal stenosis in cervical region DDD (degenerative disc disease), cervical Degeneration of cervical intervertebral disc [facility] Diagnosis Cervicalgia- Primary Numbness of fingers Disturbance of skin sensation Foraminal stenosis of cervical region Spinal stenosis in cervical region DDD (degenerative disc disease), cervical Degeneration of cervical intervertebral disc [facility] Diagnosis Foraminal stenosis of cervical region- Primary Spinal stenosis in cervical region Cervicalgia Numbness of fingers Disturbance of skin sensation DDD (degenerative disc disease), cervical Degeneration of cervical intervertebral disc [facility] Diagnosis Other chest pain- Primary Acute pain of left shoulder Primary hypertension Unspecified essential hypertension Hyperlipidemia, mixed Mixed hyperlipidemia [facility] Diagnosis Foraminal stenosis of cervical region- Primary Spinal stenosis in cervical region Cervicalgia Numbness of fingers Disturbance of skin sensation DDD (degenerative disc disease), cervical Degeneration of cervical intervertebral disc [facility] Diagnosis Primary hypertension- Primary Unspecified essential hypertension Hyperlipidemia, mixed Mixed hyperlipidemia Foraminal stenosis of cervical region Spinal stenosis in cervical region Numbness of fingers Disturbance of skin sensation DDD (degenerative disc disease), cervical Degeneration of cervical intervertebral disc Gastroesophageal reflux disease, unspecified whether esophagitis present Mild intermittent asthma with acute exacerbation Unspecified asthma, with exacerbation Allergy, sequela [facility] Diagnosis Acrochordon- Primary Unspecified hypertrophic and atrophic condition of skin Encounter for long-term (current) use of non-steroidal anti-inflammatories Foraminal stenosis of cervical region Spinal stenosis in cervical region Numbness of fingers Disturbance of skin sensation DDD (degenerative disc disease), cervical Degeneration of cervical intervertebral disc [facility]* Diagnosis Primary hypertension- Primary Unspecified essential hypertension Encounter for long-term (current) use of non-steroidal anti-inflammatories Hyperlipidemia, mixed Mixed hyperlipidemia Other chest pain Encounter for immunization Need for other specified prophylactic vaccination against single bacterial disease Gastroesophageal reflux disease, unspecified whether esophagitis present [facility] Diagnosis Primary hypertension- Primary Unspecified essential hypertension Hyperlipidemia, mixed Mixed hyperlipidemia Chronic low back pain, unspecified back pain laterality, unspecified whether sciatica present documented in this encounter [facility] note* Diagnosis Left wrist pain- Primary Pain in joint, forearm [facility]* Diagnosis Pain of hand, unspecified laterality- Primary [facility]* Diagnosis Primary hypertension Unspecified essential hypertension [facility]* Diagnosis Fecal occult blood test positive Nonspecific abnormal finding in stool contents documented in this encounter [facility] note* Diagnosis Primary hypertension Unspecified essential hypertension Hyperlipidemia, mixed Mixed hyperlipidemia documented in this encounter [facility]* Diagnosis Ulnar neuropathy of left upper extremity- Primary Lesion of ulnar nerve Pain of hand, unspecified laterality Carpal tunnel syndrome of left wrist Carpal tunnel syndrome [facility]* Diagnosis Fecal occult blood test positive- Primary Nonspecific abnormal finding in stool contents [facility] Diagnosis Allergy, sequela Primary hypertension Unspecified essential hypertension Hyperlipidemia, mixed Mixed hyperlipidemia documented in this encounter [facility] for referral (narrative)* Diagnostic Procedure Only (Routine) - Closed Specialty Diagnoses / Procedures Referred By Elvia andres Referred To Contact XR IMAGING Diagnoses Cervicalgia Numbness of fingers Procedures XR CERV OTHER 4V AP/LAT/OBL RADEX SPINE CERVICAL 4 OR 5 VIEWS Candida Moreno PA-C [address] [place] [address] Xr Imaging Referral ID Status Reason Start Date Expiration Date V isits Requested Visits Authorized [id number] Closed Auto-Generate d Referral 01/05/2022 02/04/2023 1 1 [facility] for referral (narrative)* Outpatient Procedure (Routine) - Pending Review Specialty Diagnoses / Procedures Referred By Contac t Referred To Contact [facility] Diagnoses Foraminal stenosis of cervical region Numbness of fingers DDD (degenerative disc disease), cervical Procedures EMG(NEURO/NI) NERVE CONDUCTION STUDIES 9-10 STUDIES Candida Moreno PA-C [address] [place] [address] [facility] [address] [id number] Referral ID Status Reason Start Date Expiration Date Visits Requested Visits Authorized [id number] Pending Review Auto-Generat ed Referral 03/26/2022 03/26/2023 1 1 [facility] Diagnostic Procedure Only (Routine) - Pending Review Specialty Diagnoses / Procedures Referred By Contac t Referred To Contact MOLECULAR & FUNCTIONAL IMAGING Diagnoses Other chest pain Procedures NM CARDIAC PERF STRESS/PHARM MYOCARDIAL SPECT MULTIPLE STUDIES Janay Sanford APRN.CNP [address] [place] [address] [facility] [address] [place] [address] Referral ID Status Reason Start Date Expiration Date Visits Requested Visits Authorized [id number] Pending Review Auto-Generat ed Referral 07/18/2022 08/17/2023 1 1 [facility] Summary Purpose Family History No Family History Records FoundNo Family History Records Found Advance Directives Documents on File Type Date Recorded Patient Director Medicaid Expl anation Advance Directive(s) 08/14/2021 6:41 AM Advance Directive(s) 07/20/2021 12:50 PM Documents on File Type Date Recorded Patient Director Medicaid Expl anation Advance Directive(s) 08/14/2021 6:41 AM Advance Directive(s) 07/20/2021 12:50 PM Reason for Referral Specialty Diagnoses / Procedures Referred By Contac t Referred To Contact [facility] Diagnoses Cervicalgia Numbness of fingers Foraminal stenosis of cervical region DDD (degenerative disc disease), cervical Procedures CONSULT TO PHYSICAL THERAPY PHYSICAL THERAPY EVALUATION HIGH COMPLEX 45 MINS Candida Moreno PA-C [address] [place] [address] [facility] [address] [address] Referral ID Status Reason Start Date Expiration Date Visits Requested Visits Authorized [id number] Authorized Auto-Generat ed Referral 01/15/2022 04/16/2022 1 1 Specialty Diagnoses / Procedures Referred By Contac t Referred To Contact [facility] Diagnoses Cervicalgia Numbness of fingers Foraminal stenosis of cervical region DDD (degenerative disc disease), cervical Procedures PT REHAB FOLLOW UP ORDER THERAPEUTIC EXERCISES RE, EA 15 MIN. Bryant Villalobos, PT [address] [place] [id number] [facility] [address] [address] Referral ID Status Reason Start Date Expiration Date Visits Requested Visits Authorized [id number] Pending Review PCP Requested Referral Auto-Generate d Referral 01/15/2022 04/15/2022 1 1 Specialty Diagnoses / Procedures Referred By Contac t Referred To Contact Orthopedics Diagnoses Pain of hand, unspecified laterality Procedures CONSULT TO ORTHOPAEDICS OFFICE/OUTPATIENT [facility] 60-74 MINUTES Janay Sanford APRN.SOCIAL STUDIES TEACHER [address] [place] [address] Referral ID Status Reason Start Date Expiration Date Visits Requested Visits Authorized [id number] Authorized PCP Requested Referral 04/18/2023 04/17/2024 1 1 Specialty Diagnoses / Procedures Referred By Contac t Referred To Contact General Surgery Diagnoses Fecal occult blood test positive Procedures CONSULT TO GENERAL SURGERY OFFICE/OUTPATIENT [facility] 60-74 MINUTES Janay Sanford, ANDRES.SOCIAL STUDIES TEACHER [address] [place] [address] Referral ID Status Reason Start Date Expiration Date V isits Requested Visits Authorized [id number] Closed PCP Requested Referral 06/07/2023 06/06/2024 1 1 Additional Source Comments (unrecognized sect ion and content) No Status Records FoundNo Status Records Found INFORMATION SOURCE (unrecogn ized section and content) DATE CREATED AUTHOR AUTHOR'S ORGANIZ ATION 07/28/2023 [facility] Source Comments (unrecognize d section and content) In the event this informatio n is protected by the Federal Confidentiality of Alcohol and Drug Abuse Patient Records regulations: The Federal rules restrict any use of the information to criminally investigate or prosecute any alcohol or drug abuse patient.[facility] the event this information is protected by the Federal Confidentiality of Alcohol and Drug Abuse Patient Records regulations: The Federal rules restrict any use of the information to criminally investigate or prosecute any alcohol or drug abuse patient.[facility] AdministrationIn the event this information is protected by the Federal Confidentiality of Alcohol and Drug Abuse Patient Records regulations: The Federal rules restrict any use of the information to criminally investigate or prosecute any alcohol or drug abuse patient.[facility] AdministrationIn the event this information is protected by the Federal Confidentiality of Alcohol and Drug Abuse Patient Records regulations: The Federal rules restrict any use of the information to criminally investigate or prosecute any alcohol or drug abuse patient.[facility] AdministrationIn the event this information is protected by the Federal Confidentiality of Alcohol and Drug Abuse Patient Records regulations: The Federal rules restrict any use of the information to criminally investigate or prosecute any alcohol or drug abuse patient.[facility] AdministrationIn the event this information is protected by the Federal Confidentiality of Alcohol and Drug Abuse Patient Records regulations: The Federal rules restrict any use of the information to criminally investigate or prosecute any alcohol or drug abuse patient.[facility] AdministrationIn the event this information is protected by the Federal Confidentiality of Alcohol and Drug Abuse Patient Records regulations: The Federal rules restrict any use of the information to criminally investigate or prosecute any alcohol or drug abuse patient.[facility] AdministrationIn the event this information is protected by the Federal Confidentiality of Alcohol and Drug Abuse Patient Records regulations: The Federal rules restrict any use of the information to criminally investigate or prosecute any alcohol or drug abuse patient.[facility] AdministrationIn the event this information is protected by the Federal Confidentiality of Alcohol and Drug Abuse Patient Records regulations: The Federal rules restrict any use of the information to criminally investigate or prosecute any alcohol or drug abuse patient.[facility] AdministrationIn the event this information is protected by the Federal Confidentiality of Alcohol and Drug Abuse Patient Records regulations: The Federal rules restrict any use of the information to criminally investigate or prosecute any alcohol or drug abuse patient.[facility] AdministrationIn the event this information is protected by the Federal Confidentiality of Alcohol and Drug Abuse Patient Records regulations: The Federal rules restrict any use of the information to criminally investigate or prosecute any alcohol or drug abuse patient.[facility] AdministrationIn the event this information is protected by the Federal Confidentiality of Alcohol and Drug Abuse Patient Records regulations: The Federal rules restrict any use of the information to criminally investigate or prosecute any alcohol or drug abuse patient.[facility] AdministrationIn the event this information is protected by the Federal Confidentiality of Alcohol and Drug Abuse Patient Records regulations: The Federal rules restrict any use of the information to criminally investigate or prosecute any alcohol or drug abuse patient.[facility] AdministrationIn the event this information is protected by the Federal Confidentiality of Alcohol and Drug Abuse Patient Records regulations: The Federal rules restrict any use of the information to criminally investigate or prosecute any alcohol or drug abuse patient.[facility] AdministrationIn the event this information is protected by the Federal Confidentiality of Alcohol and Drug Abuse Patient Records regulations: The Federal rules restrict any use of the information to criminally investigate or prosecute any alcohol or drug abuse patient.[facility] AdministrationIn the event this information is protected by the Federal Confidentiality of Alcohol and Drug Abuse Patient Records regulations: The Federal rules restrict any use of the information to criminally investigate or prosecute any alcohol or drug abuse patient.[facility] AdministrationIn the event this information is protected by the Federal Confidentiality of Alcohol and Drug Abuse Patient Records regulations: The Federal rules restrict any use of the information to criminally investigate or prosecute any alcohol or drug abuse patient.[facility] AdministrationIn the event this information is protected by the Federal Confidentiality of Alcohol and Drug Abuse Patient Records regulations: The Federal rules restrict any use of the information to criminally investigate or prosecute any alcohol or drug abuse patient.[facility] AdministrationIn the event this information is protected by the Federal Confidentiality of Alcohol and Drug Abuse Patient Records regulations: The Federal rules restrict any use of the information to criminally investigate or prosecute any alcohol or drug abuse patient.[facility] AdministrationIn the event this information is protected by the Federal Confidentiality of Alcohol and Drug Abuse Patient Records regulations: The Federal rules restrict any use of the information to criminally investigate or prosecute any alcohol or drug abuse patient.[facility] AdministrationIn the event this information is protected by the Federal Confidentiality of Alcohol and Drug Abuse Patient Records regulations: The Federal rules restrict any use of the information to criminally investigate or prosecute any alcohol or drug abuse patient.[facility] AdministrationIn the event this information is protected by the Federal Confidentiality of Alcohol and Drug Abuse Patient Records regulations: The Federal rules restrict any use of the information to criminally investigate or prosecute any alcohol or drug abuse patient.[facility] AdministrationIn the event this information is protected by the Federal Confidentiality of Alcohol and Drug Abuse Patient Records regulations: The Federal rules restrict any use of the information to criminally investigate or prosecute any alcohol or drug abuse patient.[facility] AdministrationIn the event this information is protected by the Federal Confidentiality of Alcohol and Drug Abuse Patient Records regulations: The Federal rules restrict any use of the information to criminally investigate or prosecute any alcohol or drug abuse patient.[facility] AdministrationIn the event this information is protected by the Federal Confidentiality of Alcohol and Drug Abuse Patient Records regulations: The Federal rules restrict any use of the information to criminally investigate or prosecute any alcohol or drug abuse patient.[facility] AdministrationIn the event this information is protected by the Federal Confidentiality of Alcohol and Drug Abuse Patient Records regulations: The Federal rules restrict any use of the information to criminally investigate or prosecute any alcohol or drug abuse patient.[facility] AdministrationIn the event this information is protected by the Federal Confidentiality of Alcohol and Drug Abuse Patient Records regulations: The Federal rules restrict any use of the information to criminally investigate or prosecute any alcohol or drug abuse patient.[facility] AdministrationIn the event this information is protected by the Federal Confidentiality of Alcohol and Drug Abuse Patient Records regulations: The Federal rules restrict any use of the information to criminally investigate or prosecute any alcohol or drug abuse patient.[facility] AdministrationIn the event this information is protected by the Federal Confidentiality of Alcohol and Drug Abuse Patient Records regulations: The Federal rules restrict any use of the information to criminally investigate or prosecute any alcohol or drug abuse patient.[facility] Reason for Visit (unrecogniz ed section and content) Specialty Diagnoses / Procedures Referred By Elvia andres Referred To Contact [facility] Diagnoses Cervicalgia Numbness of fingers Foraminal stenosis of cervical region DDD (degenerative disc disease), cervical Procedures CONSULT TO PHYSICAL THERAPY PHYSICAL THERAPY EVALUATION HIGH COMPLEX 45 MINS Candida Moreno PA-C [address] [place] [address] [facility] [address] [place] [address] Referral ID Status Reason Start Date Expiration Date V isits Requested Visits Authorized [id number] Closed Auto-Generate d Referral 01/15/2022 04/16/2022 1 1 Reason Comments Follow Up Arm Pain left arm goes numb Reason Comments Results Reason Comments PT Eval Specialty Diagnoses / Procedures Referred By Elvia andres Referred To Contact [facility] Diagnoses Cervicalgia Numbness of fingers Foraminal stenosis of cervical region DDD (degenerative disc disease), cervical Procedures CONSULT TO PHYSICAL THERAPY PHYSICAL THERAPY EVALUATION HIGH COMPLEX 45 MINS Candida Moreno, SIRIAC [address] [place] [address] [facility] [address] [place] [address] Reason Comments Physical Therapy Reason Comments ED Follow-up [facility] 01/29/22 CHEST PA IN Reason Comments 6 week f/u Reason Comments Follow Up Reason Comments Orders Reason Comments 6 Month Exam Reason Comments Results Reason Onset Date Comments Refill Request 11/29/2022 Reason Comments 6 Month Exam Reason Comments Appointment Stress test instruct ions Reason Comments Orders Stress Test instruct ions Reason Comments Wrist Pain L wrist pain x coupl e weeks; on injury Reason Comments Recheck Follow up- hand stif fness/numbness Reason Onset Date Comments Refill Request 04/18/2023 Reason Comments Consult Fecal occult blood p ositive Specialty Diagnoses / Procedures Referred By Contac t Referred To Contact General Surgery Diagnoses Fecal occult blood test positive Procedures CONSULT TO GENERAL SURGERY OFFICE/OUTPATIENT [facility] MDM 60-74 MINUTES Janay Sanford, SILVER PLATER.SOCIAL STUDIES TEACHER [address] [place] [address] Referral ID Status Reason Start Date Expiration Date V isits Requested Visits Authorized [id number] Closed PCP Requested Referral 06/07/2023 06/06/2024 1 1 Reason Comments Patient Question Reason Comments New Patient Trigger Finger Specialty Diagnoses / Procedures Referred By Contac t Referred To Contact Orthopedics Diagnoses Pain of hand, unspecified laterality Procedures CONSULT TO ORTHOPAEDICS OFFICE/OUTPATIENT [facility] MDM 60-74 MINUTES Janay Sanford, SILVER PLATER.SOCIAL STUDIES TEACHER [address] [place] [address] Referral ID Status Reason Start Date Expiration Date V isits Requested Visits Authorized [id number] Closed PCP Requested Referral 04/18/2023 04/17/2024 1 1 Reason Comments Radiology NM Specialty Diagnoses / Procedures Referred By Contac t Referred To Contact [facility] Diagnoses Other chest pain Procedures NM CARDIAC PERF STRESS/PHARM MYOCARDIAL SPECT MULTIPLE STUDIES Janay Sanford APRN.SOCIAL STUDIES TEACHER [address] [place] [address] [facility] [address] [id number] Referral ID Status Reason Start Date Expiration Date V isits Requested Visits Authorized [id number] Closed Auto-Generat ed Referral Patient Cleared - Admin/Chairm an/Director advise to proceed or did not respond 01/21/2023 03/22/2023 1 1 Reason Comments Refill Request Care Teams (unrecognized sec tion and content) Cw Operator Relationship Specialty Start Date End Date Candida Moreno PA-C [address] [place] [address] PCP - General Family Practice 01/08/17 Cw Operator Relationship Specialty Start Date End Date Candida Moreno PA-C [address] [place] [address] PCP - General Family Practice 01/08/17 Cw Operator Relationship Specialty Start Date End Date Candida Moreno PA-C [address] [place] [address] PCP - General Family Practice 01/08/17 Cw Operator Relationship Specialty Start Date End Date Candida Moreno PA-C [address] [place] [address] PCP - General Family Practice 01/08/17 Cw Operator Relationship Specialty Start Date End Date Candida Moreno PA-C [address] [place] [address] PCP - General Family Practice 01/08/17 Cw Operator Relationship Specialty Start Date End Date Candida Moreno PA-C [address] [place] [address] PCP - General Family Practice 01/08/17 Cw Operator Relationship Specialty Start Date End Date Candida Moreno PA-C [address] [place] [address] PCP - General Family Practice 01/08/17 Cw Operator Relationship Specialty Start Date End Date Candida Moreno PA-C [address] [place] [address] PCP - General Family Medicine 01/08/17 Cw Operator Relationship Specialty Start Date End Date Candida Moreno PA-C [address] [place] [address] PCP - General Family Medicine 01/08/17 Cw Operator Relationship Specialty Start Date End Date Candida Moreno PA-C [address] [place] [address] PCP - General Family Medicine 01/08/17 Cw Operator Relationship Specialty Start Date End Date Candida Moreno PA-C [address] [place] [address] PCP - General Family Medicine 01/08/17 Cw Operator Relationship Specialty Start Date End Date Candida Moreno PA-C [address] [place] [address] PCP - General Family Medicine 01/08/17 Cw Operator Relationship Specialty Start Date End Date Candida Moreno PA-C [address] [place] [address] PCP - General Family Medicine 01/08/17 Cw Operator Relationship Specialty Start Date End Date Candida Moreno PA-C [address] [place] [address] PCP - General Family Medicine 01/08/17 Cw Operator Relationship Specialty Start Date End Date Candida Moreno PA-C [address] [place] [address] PCP - General Family Medicine 01/08/17 Cw Operator Relationship Specialty Start Date End Date Candida Moreno PA-C [address] [place] [address] PCP - General Family Medicine 01/08/17 Cw Operator Relationship Specialty Start Date End Date Candida Moreno PA-C [address] [place] [address] PCP - General Family Medicine 01/08/17 Cw Operator Relationship Specialty Start Date End Date Candida Moreno PA-C [address] [place] [address] PCP - General Family Medicine 01/08/17 Cw Operator Relationship Specialty Start Date End Date Candida Moreno PA-C [address] [place] [address] PCP - General Family Medicine 01/08/17 Cw Operator Relationship Specialty Start Date End Date Candida Moreno PA-C [address] [place] [address] PCP - General Family Medicine 01/08/17 Cw Operator Relationship Specialty Start Date End Date Candida Moreno PA-C [address] [place] [address] PCP - General Family Medicine 01/08/17 Cw Operator Relationship Specialty Start Date End Date Candida Moreno PA-C [address] [place] [address] PCP - General Family Medicine 01/08/17 Cw Operator Relationship Specialty Start Date End Date Candida Moreno PA-C [address] [place] [address] PCP - General Family [facility] 01/08/17 Cw Operator Relationship Specialty Start Date End Date Candida Moreno PA-C [address] [place], [place] [address] PCP - [facility] 01/08/17 Cw Operator Relationship Specialty Start Date End Date Candida Moreno PA-C [address] [place], [place] [address] PCP - General Family [facility] 01/08/17 FOR RECORDS PERTAINING TO PATIENTS WHO ARE OR HAVE BEEN ENROLLED IN A CHEMICAL DEPENDENCY/SUBSTANCEABUSE PROGRAM, SOME INFORMATION MAY BE OMITTED. This clinical summary was aggregated from multiple sources. Caution should be exercised in using it in the provision of clinical care. This summary normalizes information from multiple sources, and as a consequence, information in this document may materially change the coding, format and clinical context of patient data. In addition, data may be omitted in some cases. CLINICAL DECISIONS SHOULD BE BASED ON THE PRIMARY CLINICAL RECORDS. [facility] [employer] [facility]. provides no warranty or guarantee of the accuracy or completeness of information in this document.
== END 2023-12-28 15:34 | disposition home or self-care (01) ==
LOC: ED 15:32
PROVIDERS: Emergency Provider Emergency Medicine; PCP Physician Assistant; Visit Provider Emergency Medicine
DX: K64.4 Residual hemorrhoidal skin tags (principal); K59.00 Constipation, unspecified
CPT/HCPCS: 99282